=== PATIENT | female | born 1935 | race Caucasian/White ===

== ENCOUNTER 2021-12-18 08:52 | Inpatient (IN) | payer MEDICARE, BC, SELFPAY ==
[2021-12-18] VITALS (10 sets, daily range): BP systolic 174–230; BP diastolic 73–91; PULSE 67–87; RESP 15–24; TEMP 36.3–37.3; O2SAT 92–96; BMI 20.9; BMI 21.8
--- NOTE | 2021-12-18 09:05 | CT_ITS ---
WS: [id number] CT ANGIOGRAM CEREBRAL AND CAROTID ARTERIES HISTORY: acute CVA TECHNIQUE: CT angiogram is performed of the carotid and cerebral arteries. During arterial injection imaging is obtained from the skull vertex to the aortic arch in 1.25 mm imaging. Coronal and sagittal reformats are submitted. Additional multi planar reformats of the carotid and cerebral arteries are submitted, MIP imaging also reviewed. NASCET criteria utilized. All CT scans at [facility] us e at least one of these dose optimization techniques: automated exposure control; mA and/or kV adjust ment per patient size (includes targeted exams where dose is matched to clinical indication); or iter ative reconstruction. CONTRAST: Visipaque 320; 95 mL IV. DLP: 1670.86 mGy.cm COMPARISON: None available. Carotid Angiogram: Right carotid: Common carotid artery: Proximal RIGHT carotid artery is obscured by significant breathing artifact. T he mid and distal common carotid artery widely patent. Small amount of plaque at the bifurcation. Internal carotid artery: No stenosis. There is a sharp bend in the mid cervical carotid artery stenos is resulting in mild narrowing. External carotid artery: Patent. Left carotid: Common carotid artery: Arises normally from the aorta. No significant plaque or stenosis. Partially o bscured in the proximal common carotid artery due to motion and breathing artifact. Internal carotid artery: Partially External carotid artery: Patent. Right vertebral artery: Unremarkable. Left vertebral artery: Unremarkable. Arises normally from the subclavian artery. Subclavian arteries: No stenosis or significant abnormality. Upper thorax: Normal. Thyroid gland: Normal. Osseous structures: Thoracic spondylitic changes. No destructive lesions. CEREBRAL ANGIOGRAM: Intracranial vertebral arteries: Small caliber RIGHT vertebral artery but it is patent. Basilar artery: No significant stenosis or occlusion. No aneurysm. Intracranial Internal carotid arteries: No stenosis. There is a small amount of calcified plaque thro ugh the cavernous sinuses. Middle cerebral arteries: Normal. Anterior cerebral arteries and ACOM: Normal. Posterior cerebral arteries and PCOM's: Persistent RIGHT circulation. LEFT P-comm is poorly vis ualized and may be absent. Small filling defect is probably an arachnoid granulation in the posterior cysts sagittal sinus. Theo tional filling defects are very small caliber LEFT transverse sinus. This is probably normal variant as the jugular foramen on the LEFT is also very small. Mastoid air cells: Normal. Paranasal sinuses: Normal. Calvarium: Normal. CT/CT angio headneck* [id number] IMPRESSION: 1. No significant carotid artery stenosis. There is mild narrowing in the mid RIGHT internal carotid artery due to the sharp bend. Mild atherosclerosis throu gh the cavernous sinuses. 2. No aneurysms or significant occlusion.
--- NOTE | 2021-12-18 09:05 | CT_ITS ---
WS: [id number] CT HEAD NONCONTRAST HISTORY: Symptoms of Acute Stroke TECHNIQUE: Contiguous axial imaging performed through the brain in 2.5 mm imaging. Bone and soft tiss ue windows. Sagittal and coronal reformats reviewed. All CT scans at [facility] use at least one of these dose optimization techniques: automated exposure control; mA and/or kV adjustment per pa tient size (includes targeted exams where dose is matched to clinical indication); or iterative recon struction. DLP: 937.61 mGy-cm. COMPARISON: None available. No acute intracranial hemorrhage, midline shift or mass effect. Moderate to severe atrophy slightly greater involving the LEFT hemisphere. There is extensive low att enuation from chronic white matter disease. Slight increased low attenuation within the RIGHT parieta l region. There is still normal appearance of the overlying cortex. These changes all may be related to chronic white matter disease. Mild atrophy of the cerebellum. Ventricles: Ventricles and extra-axial spaces are prominent on the basis of atrophy. Paranasal sinuses: As visualized are clear. Mastoid air cells: Well pneumatized. Calvarium and scalp: Skull is intact with no soft tissue edema or swelling. Moderate atherosclerotic plaque within the intracranial carotid arteries. CT/CT head wo con* [id number] IMPRESSION: 1. No acute intracranial hemorrhage or edema. 2. Moderate to severe atrophy and chronic ischemic disease. Slightly greater a trophy involving the LEFT cerebrum. Slightly greater chronic ischemic changes i n the RIGHT parietal region. The overlying cortex is still normal.
--- NOTE | 2021-12-18 09:05 | ECG_ITS ---
[facility] Test Date: 2021-12-18 Pat Name: Isabel Smallwood Department: Room: Gender: Female Assisted Living Home Director: : 1935 Requested By: Thomas Miramontes Order Number: [id number] Giancarlo MD: Rudolph Graves M.D. Measurements Intervals [place] Rate: 80 P: 89 OR: 171 QRS: 16 QRSD: 133 T: 60 QT: 448 QTc: 517 Interpretive Statements SINUS RHYTHM INDETERMINATE AXIS RIGHT BUNDLE BRANCH BLOCK [120+ ms QRS DURATION, UPRIGHT V1, 40+ ms S IN I/aVL/V4/V5/V6] Compared to ECG 05/20/2018 10:14:22 Indeterminate axis now present Right bundle-branch block now present Sinus tachycardia no longer present T-wave abnormality no longer present Electronically Signed On 12-20-2021 15:49:54 CDT by Rudolph Graves M.D. [id number]
--- NOTE | 2021-12-18 09:11 | W.ED.NEUROSD ---
HPI - Neuro Symptoms/Deficit General: Chief Complaint: Neuro Symptoms/Deficit Stated Complaint: l side weakness/ laying on floor Time Seen by Provider: 12/18/21 08:54 Source: patient Mode of arrival: EMS Limitations: no limitations History of Present Illness: 86-year-old female brought in by EMS with wake-up symptoms of left face left-sided facial weakness left arm and leg weakness. Patient is mild aphasia and significant dysarthria. Initial stroke score of 14. Patient was found by family laying on the floor. She is 14 hours out from onset of symptoms. She denies chest pain or difficulty breathing she is not on any anticoagulants. Onset (ago): unknown (Wake-up symptoms) Time: 08:52 Last Observed Normal: 19:00 Timing confirmed by: family member Location: speech, left face, left arm and left leg History of same: No Severity: severe Quality: weak Relieving factors: none Exacerbating factors: none Context: sudden onset (Woke up with symptoms) On Anticoagulants: No Associated symptoms: Deny chest pain, cough, diaphoresis, fevers/chills, headache(s), anorexia, malaise, nausea, seizures, short of breath, syncope, tingling, vertigo, vomiting or weakness Treatments Prior to Arrival: none Review of Systems Const: Denies: malaise or diaphoresis Card: Denies: chest pain or syncope GI: Denies: nausea or vomiting Neuro: Denies: headache(s) or vertigo [facility] ED PFSH: Medical History (Updated 12/22/21 @ 16:07 by Thomas Dubose DO) Depression with anxiety HTN (hypertension) Insomnia Family History (Updated 12/18/21 @ 10:59 by Joseph Yanez MD) Daughter Psychiatric illness Social History (Updated 12/18/21 @ 11:01 by Joseph Yanez MD) Smoking and tobacco status: never smoked Alcohol intake: never Household members: spouse and children Marital status: Number of children: 2 NIH stroke score NIHSS: Level Of Consciousness - 1a: 1 Level Of Consciousness Questions - 1b: One Correct Level Of Consciousness Commands - 1c: Both Correct Best Gaze - 2: Normal Visual Wiley - 3: Partial Hemianopia Facial Palsy - 4: Complete Paralysis Motor Arm Right - 5: No Drift Motor Arm Left - 5: Drift Motor Leg Right - 6: No Drift Motor Leg Left - 6: Drift Limb Ataxia - 7: Present In Two Limbs Sensory - 8: Normal Best Language - 9: Mild/Moderate Aphasia Dysarthia - 10: Severe Dysarthia Extinction And Inattention - 11: 0 Score: Total Score: 13 Physical Exam Const: GENERAL APPEARANCE: cooperative, comfortable and lethargic ORIENTATION/CONSCIOUSNESS: Yes lethargic HENMT: COMMON NORMALS: normocephalic, atraumatic and hearing grossly normal bilaterally HEAD & SCALP: normocephalic and atraumatic Eye: COMMON NORMALS: Equal, round and reactive pupils present, EOMs intact bilaterally, conjunctivae normal and no scleral icterus CONJUNCTIVA: Yes conjunctivae normal PUPIL: Yes Equal, round and reactive pupils present Neck/C-Spine: COMMON NORMALS: full ROM, no lymphadenopathy, supple and no JVD Lymph: LYMPHATIC: no lymphadenopathy noted and no lymphedema noted Resp: COMMON NORMALS: normal respiratory effort, No retractions, No use of accessory muscles and clear to auscultation bilaterally AUSCULTATION: clear to auscultation bilaterally Cardio: COMMON NORMALS: no JVD, regular rate, regular rhythm and No murmurs present (Cardio) RATE: regular rate RHYTHM: regular rhythm GI: COMMON NORMALS: Soft to palpation and No hepatosplenomegaly present AUSCULTATION: Yes normoactive bowel sounds PALPATION: Yes Soft to palpation, No Tenderness to palpation present (GI), No Guarding due to palpation present (GI) and Yes No hepatosplenomegaly present Extremity: COMMON NORMALS: normal to inspection, capillary refill normal, no clubbing, cyanosis or edema, no calf tenderness and no pedal edema Neuro: SENSORIUM/ORIENTATION: Yes lethargic Skin: COMMON NORMALS: no rashes or lesions noted GENERAL SKIN EXAM: no rashes or lesions noted Course Vital Signs: Vital signs: Vital Signs Temperature 98.4 F 12/22/21 13:41 Pulse Rate 66 12/22/21 13:41 Respiratory Rate 16 12/22/21 13:41 Blood Pressure 193/75 12/22/21 13:41 Pulse Oximetry 95 12/22/21 13:41 MDM - Neuro Symptoms/Deficit Medical Decision Making Over 12 hours at the time of presentation. CTA head and neck does not show any embolism. Is not a candidate for TPA will admit discussed with hospitalist orders written Medical Records I reviewed the patient's medical records. Lab Data I reviewed the patient's lab results. : 12/18/21 08:37 12/18/21 08:[address] 12/18/21 09:05 IMPRESSION: 1. No acute intracranial hemorrhage or edema. 2. Moderate to severe atrophy and chronic ischemic disease. Slightly greater atrophy involving the LEFT cerebrum. Slightly greater chronic ischemic changes in the RIGHT parietal region. The overlying cortex is still normal. Head/Neck CTA 12/18/21 09:05 IMPRESSION: 1. No significant carotid artery stenosis. There is mild narrowing in the mid RIGHT internal carotid artery due to the sharp bend. Mild atherosclerosis through the cavernous sinuses. 2. No aneurysms or significant occlusion. Laboratory Results WBC 10.5 10^3/uL (4.0-10.0) H 12/18/21 08:37 RBC 4.71 10^6/uL (4.1-5.3) 12/18/21 08:37 Hgb 14.8 g/dL (11.5-15.3) 12/18/21 08:37 Hct 47.0 % (37.0-47.0) 12/18/21 08:37 MCV 99.8 fl (81-99) H 12/18/21 08:37 MCH 31.4 pg (28.0-34.0) 12/18/21 08:37 MCHC 31.5 g/dL (30.0-36.0) 12/18/21 08:37 RDW 11.9 % (12.1-15.1) L 12/18/21 08:37 Plt Count 212 10^3/cmm (130-400) 12/18/21 08:37 MPV 11.1 fL (7.4-10.4) H 12/18/21 08:37 Neut % (Auto) 79.4 % 12/18/21 08:37 Lymph % (Auto) 13.3 % 12/18/21 08:37 [place] % (Auto) 5.5 % 12/18/21 08:37 Eos % (Auto) 0.4 % 12/18/21 08:37 Baso % (Auto) 0.6 % 12/18/21 08:37 Neut # (Auto) 8.38 10^3/uL (1.8-7.7) H 12/18/21 08:37 Lymph # (Auto) 1.4 10^3/uL (0.8-4.8) 12/18/21 08:37 [place] # (Auto) 0.6 10^3/uL (0.2-0.9) 12/18/21 08:37 Eos # (Auto) 0.0 10^3/uL (0.0-0.8) 12/18/21 08:37 Baso # (Auto) 0.1 10^3/uL (0.0-0.1) 12/18/21 08:37 Nucleated RBC % (auto) 0 % 12/18/21 08:37 Nucleated RBCs # 0.0 /100WBC 12/18/21 08:37 PT 12.40 SECONDS (12.1-14.9) 12/18/21 08:37 INR 0.89 (0.8-1.2) 12/18/21 08:37 APTT 24.6 SECONDS (23.9-36.7) 12/18/21 08:37 Sodium 139 mmol/L (136-145) 12/18/21 08:37 Potassium 3.9 mmol/L (3.5-5.1) 12/18/21 08:37 Chloride 100 mmol/L (98-107) 12/18/21 08:37 Carbon Dioxide 28 mmol/L (22-29) 12/18/21 08:37 Anion Gap 14.9 (5-19) 12/18/21 08:37 BUN 12 mg/dL (8-23) 12/18/21 08:37 Creatinine 0.8 mg/dL (0.5-0.9) 12/18/21 08:37 GFR Calculation Not Reportable 12/18/21 08:37 Glucose 119 mg/dL (65-115) H 12/18/21 08:37 POC Glucose 105 mg/dL (70-110) 12/18/21 09:22 Calculated Osmolality 289 mOsm/kg (285-295) 12/18/21 08:37 Calcium 10.1 mg/dL (8.5-10.5) 12/18/21 08:37 Total Bilirubin 0.5 mg/dL (0.15-1.2) 12/18/21 08:37 AST 18 U/L (0-32) 12/18/21 08:37 ALT 13 U/L (0-33) 12/18/21 08:37 Alkaline Phosphatase 87 IU/L (35-105) 12/18/21 08:37 Total Protein 7.7 g/dL (6.6-8.7) 12/18/21 08:37 Albumin 4.9 g/dL (3.5-5.2) 12/18/21 08:37 Globulin 2.8 g/dL (1.3-4.6) 12/18/21 08:37 Urine Color Straw (Yellow) 12/18/21 10:28 Urine Appearance Clear (CLEAR) 12/18/21 10:28 Urine pH 8 (5-7) H 12/18/21 10:28 Ur Specific [place] 1.010 (1.005-1.030) 12/18/21 10:28 Urine Protein Neg (Negative) 12/18/21 10:28 Urine Glucose (UA) Norm (Normal) 12/18/21 10:28 Urine Ketones Negative (Negative) 12/18/21 10:28 Urine Blood 2+ (Negative) H 12/18/21 10:28 Urine Nitrate Negative (Negative) 12/18/21 10:28 Urine Bilirubin Neg (Negative) 12/18/21 10:28 Prot Sulfosalicylic Acd Negative (Negative) 12/18/21 10:28 Urine Urobilinogen Norm mg/dL (Negative) 12/18/21 10:28 Ur Leukocyte Esterase Negative (Negative) 12/18/21 10:28 Urine RBC 0-4 /hpf (0-2) H 12/18/21 10:28 Urine WBC None /hpf (0-5) 12/18/21 10:28 Ur Squamous Epith Cells 0-4 /hpf (0-5) H 12/18/21 10:28 Amorphous Sediment Not Reportable 12/18/21 10:28 Urine Bacteria Trace /hpf (NONE) 12/18/21 10:28 Urine Mucus Trace /hpf 12/18/21 10:28 Urine Opiates Screen Negative ng/mL (Negative) 12/18/21 10:28 Ur Barbiturates Screen Negative ng/mL (Negative) 12/18/21 10:28 Ur Phencyclidine Scrn Negative ng/mL (Negative) 12/18/21 10:28 Ur Amphetamines Screen Negative ng/mL (Negative) 12/18/21 10:28 U Benzodiazepines Scrn Negative ng/mL (Negative) 12/18/21 10:28 Urine Cocaine Screen Negative ng/mL (Negative) 12/18/21 10:28 U Marijuana (THC) Screen Negative ng/mL (Negative) 12/18/21 10:28 Discharge Plan Discharge Patient Disposition: Admitted As Inpatient Admit Provider: Joseph Yanez Clinical Impression: CVA (cerebral vascular accident), HTN (hypertension) Condition: Stable Discharge Orders: Discharge Order (Routine); Ordered 12/22/21 Ordered By: Renita De Luna Discharge Diet: Cardiac Discharge Activity: Increase activity as tolerated Coding Level of Care Code ED Exhaust Emissions Automotive Technician for Loy Ontiveros
[2021-12-18] MEDS: iodixanol 320 mg/mL 100mL Btl IV (09:12)
--- NOTE | 2021-12-18 09:18 | PC.PHAR ---
pts verified pts medications pts brought in the pts medication bottles-pts states the pt takes no other rx or otc medications
[2021-12-18 09:23] LABS: Basophils # 0.1 10^3/uL (0.0-0.1); Basophils % 0.6 %; Eosinophils % 0.4 %; Hemoglobin 14.8 g/dL (11.5-15.3); Lymphocytes # 1.4 10^3/uL (0.8-4.8); Lymphocytes % 13.3 %; Mean Corpuscular HGB Conc 31.5 g/dL (30.0-36.0); Mean Corpuscular Hemoglobin 31.4 pg (28.0-34.0); Mean Corpuscular Volume 99.8 fl (81-99); Mean Platelet Volume 11.1 fL (7.4-10.4); Monocytes # 0.6 10^3/uL (0.2-0.9); Monocytes % 5.5 %; Neutrophils # 8.38 10^3/uL (1.8-7.7); Neutrophils % 79.4 %; Nucleated Red Blood Cells % 0 %; Platelet Count 212 10^3/cmm (130-400); Red Blood Count 4.71 10^6/uL (4.1-5.3); Red Cell Distribution Width 11.9 % (12.1-15.1); White Blood Count 10.5 10^3/uL (4.0-10.0)
[2021-12-18 09:25] LABS: Glucose Point of Care 105 mg/dL (70-110)
[2021-12-18 09:28] LABS: INR 0.89 (0.8-1.2)
[2021-12-18 09:29] LABS: Partial Thromboplastin Time 24.6 SECONDS (23.9-36.7)
[2021-12-18 09:37] LABS: Alanine Aminotransferase 13 U/L (0-33); Albumin Level 4.9 g/dL (3.5-5.2); Alkaline Phosphatase 87 IU/L (35-105); Anion Gap 14.9 (5-19); Aspartate Amino Transferase 18 U/L (0-32); Blood Urea Nitrogen 12 mg/dL (8-23); Calcium 10.1 mg/dL (8.5-10.5); Carbon Dioxide 28 mmol/L (22-29); Chloride 100 mmol/L (98-107); Creatinine Clr Calc Pharmacy 47.1485; Globulin 2.8 g/dL (1.3-4.6); Glucose 119 mg/dL (65-115); Osmolality Calculated 289 mOsm/kg (285-295); Potassium 3.9 mmol/L (3.5-5.1); Sodium 139 mmol/L (136-145); Total Bilirubin 0.5 mg/dL (0.15-1.2); Total Protein 7.7 g/dL (6.6-8.7)
--- NOTE | 2021-12-18 10:50 | P.HP_ITS ---
Providers/Chief Complaint Admitting Physician: Joseph Yanez MD. Chief Complaint: l side weakness/ laying on floor History of Present Illness Isabel Smallwood is a 86 year old female that presents to ED today with approximately 12 hours history dense left side hemiparesis, and dysarthria. Patient's explains that she was last seen without symptoms last night before bed, and he found her this morning around 0800 with these symptoms. She explains that she began to feel bad last night at bed time, but denies any symptoms of weakness or dysarthria. She was unable to communicate what symptoms she was experiencing. Patient denies any history of thyroid disease, cardiac problems, and cardiac arrhythmias. Patient denies any history of similar stroke symptoms in the past. Review of Systems General: Reports: 10 or more systems reviewed and unremarkable except in HPI and below Const: Denies: fever(s) or chills Eyes: Denies: change in vision ENMT: Denies: throat pain or nasal congestion Card: Denies: chest pain or palpitations Resp: Denies: dyspnea or productive cough GI: Denies: abdominal pain, nausea or vomiting : Denies: difficulty voiding or dysuria Musc: Denies: extremity pain or muscle cramps Skin/Breast: Denies: rash Neuro: Reports: other (See HPI) Psych: Reports: anxiety and depression Endo: Denies: polyuria or excessive sweating Alvino/Lymph: Denies: easy bruising or easy bleeding All/Imm: Denies: urticaria Medications/Allergies Home Medications Medication Instructions Recorded Confirmed Last Taken Type aripiprazole 2 mg tablet 2 mg PO DAILY@08 12/18/21 12/18/21 12/17/21 History atenolol 50 mg tablet 50 mg PO BEDTIME 12/18/21 12/18/21 12/17/21 History citalopram 10 mg tablet 10 mg PO DAILY@12 12/18/21 12/18/21 12/17/21 History trazodone 100 mg tablet 200 mg PO BEDTIME 12/18/21 12/18/21 12/17/21 History Allergies Allergy/AdvReac Type Severity Reaction Status Date / Time No Known Allergies Allergy Verified 12/18/21 09:14 PFSH Acute PFSH: Medical History (Updated 12/18/21 @ 11:03 by Joseph Yanez MD) Depression with anxiety HTN (hypertension) Insomnia Family History (Updated 12/18/21 @ 10:59 by Joseph Yanez MD) Daughter Psychiatric illness Social History (Updated 12/18/21 @ 11:01 by Joseph Yanez MD) Smoking and tobacco status: never smoked Alcohol intake: never Household members: spouse and children Marital status: Number of children: 2 Vitals/I&O/Wt Last Vital Signs Pulse 87 12/18/21 10:03 Resp 18 12/18/21 10:03 BP 196/73 12/18/21 10:03 Pulse Ox 92 12/18/21 10:03 Weight last 48 hrs Weight 58.967 kg Physical Exam Narrative: General: Elderly appearing female lying in bed with at her side, left side facial droop present. HEENT: Normocephalic, atraumatic. Pupils equal and round. Neck is supple no lymphadenopathy or thyromegaly Cardiac: Regular rate and rhythm. S1 S2 present, no murmurs rubs or gallops. Peripheral pulse 2+. Respiratory: Clear to auscultation, no wheezes rales or rhonchi. Air entry equal bilaterally. GI: Soft, nontender, nondistended, normoactive bowel sounds, no organomegaly. Extremities: Left side upper and lower extremity weakness, muscle strength 1+ upper, 2+ lower. No cyanosis, clubbing, or edema. No other obvious abnormalities. Neuro: Dense left sided hemiparesis, left sided facial droop. Sensation absent over left upper and lower extremity. Able to move left lower extremity better. Suspect visual field defect as well. Data : 12/18/21 08:37 12/18/21 08:37 Other Labs: INR 0.89 EKG: Sinus rhythm, regular rate. Normal axis. Right bundl branch block. Nonspecific ST wave changes. CT Head: No acute ICH or edema. Moderate to severe atrophy and chronic ischemic disease. Slightly greater atrophy involving left cerebrum. Slight greater chronic ischemic changes in right parietal region. CTA Cerebral and Carotid Arteries: No significant carotid artery stenosis. Mild narrowing mid right internal carotid artery due to sharp bend. Mild atherosclerosis through cavernous sinuses. No aneurysms or significant occ lusions. LFTs normal, glucose 119, urinalysis negative, urine drug screen negative A&P Assessment and plan (1) CVA (cerebral vascular accident): Patient presents with evidence of right sided CVA manifested by dense left side hemiparesis, left sided facial droop, and dysarthria. Denies any history of coronary heart disease, arrhythmias, or previous TIA/stroke. Start patient on aspirin, Plavix for antiplatelet treatment Lovenox for DVT prophylaxis anticoagulation Telemetry TSH ordered on blood in lab Speech therapy, occupational, and physical therapy consultation. Remain NPO for now and advance diet following speech therapy swallow evaluation Start statin, Hold beta-reza currently secondary to permissive hypertension. Hopefully can restart at a lower dose tomorrow unless significant withdrawal occurs Check echocardiogram CMP, CBC in AM Status: Acute (2) HTN (hypertension): Hold at home hypertensive medications May have to restart lower dose of beta-reza earlier than ideal if any withdrawal occurs Treat blood pressure if greater than 220/120, message to nurse regarding this entered in the orders. Status: Acute (3) Depression: Continue citalopram and abilify as scheduled at home for treatment of depression and anxiety Status: Acute (4) Insomnia: Continue trazodone for difficulty with sleep Status: Acute Plan Allow natural . Lovenox for DVT prophylaxis Attestations Medical Necessity Statement*: Will require greater than 2 midnight stay for evaluation and treatment of CVA. Coding Level of Care Code Acute Lead Software Development Engineer for Loy Ontiveros Diagnoses CVA (cerebral vascular accident) I63.9 HTN (hypertension) I10 Depression F32.A Insomnia G47.00
[2021-12-18 10:58] LABS: Add Urine Microscopic? YES; Bilirubin Urine Neg (Negative); Blood Urine 2+ (Negative); Glucose Urine UA Norm (Normal); Ketones Urine Negative (Negative); Leukocyte Esterase Urine Negative (Negative); Nitrate Urine Negative (Negative); Protein Urine Neg (Negative); Sulfosalicylic Acid Urine Negative (Negative); Urine Appearance Clear (CLEAR); Urine Color Straw (Yellow); Urobilinogen Urine Norm (Negative); pH Urine 8 (5-7)
[2021-12-18 11:04] LABS: Amphetamines Screen Urine Negative (Negative); Barbiturates Screen Urine Negative (Negative); Benzodiazepines Screen Urine Negative (Negative); Cocaine Screen Urine Negative (Negative); Opiate Screen Urine Negative (Negative); PCP Screen Urine Negative (Negative); THC Screen Urine Negative (Negative)
[2021-12-18] MEDS: labetalol 5 mg/mL SDV 20mL 10 MG IVP (11:13)
[2021-12-18 11:17] LABS: Add Urine Culture? No; Bacteria Urine TRACE /hpf; Mucus Urine TRACE /hpf; RBC Urine 0-4 /hpf (0-2); Squamous Epithelial Cell Urine 0-4 /hpf (0-5)
[2021-12-18] MEDS: enoxaparin 40 mg/0.4 mL Syringe SUBCUT (11:17)
[2021-12-18] MEDS: citalopram 20 mg Tablet 10 MG PO (14:57)
[2021-12-18] MEDS: sodium chloride 0.9% 1,000 ML 50 ML IV (22:25)
[2021-12-19] VITALS (10 sets, daily range): BP systolic 150–186; BP diastolic 60–90; PULSE 61–71; RESP 16–22; TEMP 37.3–37.6; O2SAT 93–97
[2021-12-19 03:42] LABS: Estmated Average Glucose 103; Hemoglobin A1C 5.2 % (4.0-6.0)
[2021-12-19 03:45] LABS: Chol HDL Ratio 2.76 mg/dL (0.0-4.40); Cholesterol 229 mg/dL (0-200); HDL Cholesterol 83 mg/dL (60-100); LDL Cholesterol Calculated 129 mg/dL (50-129); LDL HDL Ratio 1.55 RATIO (0.00-3.22); Triglycerides 83 mg/dL (0-150)
--- NOTE | 2021-12-19 06:00 | USCV_ITS ---
Isabel Smallwood Age: 86 Gender: F : 1935 Exam Date: 12/19/2021 07:06 Ordering Phys: Joseph Yanez MD Technologist: Kelsie Trivedi [place] [facility] [place]: CVA BP: 168 / 75 HR: 80 Rhythm: Sinus Technical Quality: Adequate MEASUREMENTS (Male / Female) Normal Values 2D ECHO LV Diastolic Diameter PLAX 3.9 cm 4.2 - 5.9 / 3.9 - 5.3 cm LV Systolic Diameter PLAX 2.4 cm IVS Diastolic Thickness 1.1 cm 0.6 - 1.0 / 0.6 - 0.9 cm IVS Systolic Thickness 1.6 cm LVPW Diastolic Thickness 1.1 cm 0.6 - 1.0 / 0.6 - 0.9 cm LVPW Systolic Thickness 1.6 cm LVOT Diameter 2.0 cm LV Ejection Fraction 2D Teich 70.9 % LV Ejection Fraction MOD 2C 63.9 % LV Ejection Fraction 2C AL 63.8 % LA Diameter 2.4 cm LA Width 3.6 cm LA Height 5.3 cm RA Width 2.2 cm RA Height 4.3 cm Aorta at Sinotubular Diameter 2.1 cm M-MODE Aortic Annulus Diameter 2.4 cm LA Ao Ratio MM 1.2 MV E Point Septal Separation 1.0 cm DOPPLER AV Peak Velocity 126.0 cm/s LVOT Peak Velocity 111.0 cm/s AV Area Cont Eq vti 2.4 cm squared AV Area Cont Eq pk 2.8 cm squared MV Area PHT 3.7 cm squared Mitral E to A Ratio 1.5 MV E' Velocity 57.5 cm/s Mitral E to MV E' Ratio 16.3 Mitral E to LV E' Lateral Ratio 15.1 Mitral E to LV E' Septal Ratio 17.6 TR Peak Velocity 274.8 cm/s TR Peak Gradient 30.2 mmHg TR Mean Velocity 193.5 cm/s TR Mean Gradient 17.7 mmHg TR Velocity Time Integral 77.4 cm TV Peak E Velocity 43.0 cm/s Right Atrial Pressure 8.0 mmHg Pulmonary Artery Systolic Pressu 38.2 mmHg PV Peak Velocity 97.0 cm/s RV Acceleration Time 0.1 s RV Ejection Time 0.3 s RV AcT/ET 0.3 FINDINGS Left Ventricle Normal left ventricular size. LV systolic function is normal with EF of 55-60%. No regional wall motion abnormalities. Right Ventricle The right ventricle is normal in size and function. Right Atrium The right atrium is normal in size. Left Atrium The left atrium is normal in size. Mitral Valve Mild mitral annular calcification without significant stenosis or prolapse. There is mild mitral regurgitation. Aortic Valve Structurally normal aortic valve without significant sclerosis or stenosis. There is mild to moderate aortic regurgitation. Tricuspid Valve Structurally normal tricuspid valve without significant stenosis. Mild tricuspid regurgitation. Pulmonary artery systolic pressure is normal. Pulmonic Valve Structurally normal pulmonic valve without significant stenosis. There is no pulmonic regurgitation. Pericardium Normal pericardium without effusion. Aorta Normal ascending aorta dimension. CONCLUSIONS LV systolic function is normal with EF of 55-60% Mild mitral regurgitation Mild to moderate aortic regurgitation Mild tricuspid regurgitation No comparison studies are available Rudolph Graves MD (Electronically Signed) Final Date: 19 December 2021 11:20 S
--- NOTE | 2021-12-19 07:10 | PC.NURSE ---
[facility] completed at bedside with Chritsin THOMAS from pm shift.
[2021-12-19] MEDS: enoxaparin 40 mg/0.4 mL Syringe SUBCUT (09:49)
[2021-12-19] MEDS: clopidogrel 75 mg Tablet PO (09:49)
[2021-12-19] MEDS: atenolol 50 mg Tablet 25 MG PO ×2 (09:49→20:05)
[2021-12-19] MEDS: aspirin 81 mg EC Tablet PO (09:49)
--- NOTE | 2021-12-19 11:40 | P.PN_ITS ---
Subjective Subjective: Patient will patient work with PT Did not see any signs of aspiration with fluid intake She is eager to return home with home health services, she is not very motivated to go to rehab however might agree for short-term Vitals/I&O/Wt Last Vital Signs Temp 99.1 F 12/19/21 08:00 Pulse 71 12/19/21 08:00 Resp 22 H 12/19/21 08:00 BP 175/60 12/19/21 09:17 Pulse Ox 93 12/19/21 08:00 12/18/21 12/19/21 12/19/21 22:59 06:59 14:59 Intake Total 591.667 / 591.667 Output Total 150 / 150 650 / 800 Balance -150 / -150 -650 / -800 591.667 / 591.667 Weight last 48 hrs Weight 57.697 kg Weight 58.967 kg Physical Exam Narrative: Euvolemic NIH 0 Right-sided mild facial droop Awake and alert Weakness of upper extremities noted however she is able to hold spoon and eat on her own Able to lift her leg in the air for about 5 seconds Able to follow commands at the bedside Saturating well on room air No audible stridor or wheezing Abdomen soft Urinary Catheter Management: Silva: Cath Placed During This Visit: yes Reason for Continuing Indwelling Catheter: Other Urinary Catheter Date of Insertion: 12/18/21 Urinary Catheter Time of Insertion: 11:21 Data : 12/18/21 08:37 12/18/21 08:37 A&P Assessment and plan (1) Insomnia: Status: Acute (2) CVA (cerebral vascular accident): Status: Acute (3) Depression: Status: Acute (4) HTN (hypertension): Status: Acute Plan NIH 0 To work with PT OT speech therapy She might be able to go home with home health services versus short-term rehab Sinus rhythm Will need event monitor at the time of discharge For her hypertension I have added metoprolol, Hemoglobin A1c normal Advance diet after speech therapy evaluation DVT prophylaxis with Lovenox Currently on dual antiplatelet therapy Echo unremarkable Continue SSRI for depression Trazodone for insomnia DNR/DNI Attestations Medical Necessity Statement*: Continue hospitalization patient needs PT/OT/speech therapy evaluation Time Spent in Patient Care: 20min Coding Level of Care Code Acute Chemical Engineering Technologist for Chg Fwd Diagnoses Insomnia G47.00 CVA (cerebral vascular accident) I63.9 Depression F32.A HTN (hypertension) I10
[2021-12-19] MEDS: citalopram 20 mg Tablet 10 MG PO (12:30)
[2021-12-19] MEDS: lisinopril 10 mg Tablet PO (12:30)
[2021-12-19] MEDS: atorvastatin 40 mg Tablet PO (20:06)
[2021-12-19] MEDS: trazodone 100 mg Tablet 200 MG PO (20:06)
[2021-12-20] VITALS (10 sets, daily range): BP systolic 126–153; BP diastolic 68–73; PULSE 58–68; RESP 16–18; TEMP 36.8–37.3; O2SAT 95–97
[2021-12-20] MEDS: lisinopril 10 mg Tablet PO (08:38)
[2021-12-20] MEDS: aspirin 81 mg EC Tablet PO (08:38)
[2021-12-20] MEDS: clopidogrel 75 mg Tablet PO (08:38)
[2021-12-20] MEDS: citalopram 20 mg Tablet 10 MG PO (11:12)
[2021-12-20] MEDS: enoxaparin 40 mg/0.4 mL Syringe SUBCUT (11:12)
--- NOTE | 2021-12-20 11:30 | P.PN_ITS ---
Subjective Subjective: This morning patient was able to work with physical therapy She requires some assistance however significant improvement in her energy and participation with PT No overnight events Plan to discharge her tomorrow with home health services Vitals/I&O/Wt Last Vital Signs Temp 98.3 F 12/20/21 11:27 Pulse 68 12/20/21 11:27 Resp 18 12/20/21 11:27 BP 126/68 12/20/21 11:27 Pulse Ox 97 12/20/21 11:27 12/19/21 12/20/21 12/20/21 21:59 06:59 14:59 Intake Total 120 / 120 Output Total Balance 120 / 120 Weight last 48 hrs Weight 57.697 kg Physical Exam Narrative: Patient was able to work with physical therapy Using walker Bilateral breath sounds Saturating well on room air Mild facial droop Left arm weakness She is able to walk with some assistance with the help of a walker No significant gait instability Awake and alert Able to follow commands NIH 0 Abdomen soft S1, S2 Urinary Catheter Management: Silva: Cath Placed During This Visit: yes Reason for Continuing Indwelling Catheter: Acute Urinary Retention or Obstruction Urinary Catheter Date of Insertion: 12/18/21 Urinary Catheter Time of Insertion: 11:21 Data : 12/18/21 08:37 12/18/21 08:37 A&P Assessment and plan (1) Insomnia: Status: Acute (2) CVA (cerebral vascular accident): Status: Acute (3) Depression: Status: Acute (4) HTN (hypertension): Status: Acute Plan Hemorrhagic CVA Atherosclerotic No signs of clot Sinus rhythm Dual antiplatelet therapy and atorvastatin Home health services, will prescribe her a walker Outpatient skilled therapy? Patient is actively participating with PT I will speak with her daughter today Plan to discharge her tomorrow with home health services Blood pressure is stable Afebrile Satting well on room air MCV is 99, check B12 level no signs of anemia DNR/DNI Dysphagia level 2 diet Attestations Medical Necessity Statement*: Discharge tomorrow Time Spent in Patient Care: 15min Coding Level of Care Code Acute In Tube Conversion Technician for Loy Ontiveros Diagnoses Insomnia G47.00 CVA (cerebral vascular accident) I63.9 Depression F32.A HTN (hypertension) I10
[2021-12-20 12:44] LABS: Vitamin B12 320 pg/mL (232-1245)
[2021-12-20] MEDS: atenolol 50 mg Tablet 25 MG PO (20:53)
[2021-12-20] MEDS: atorvastatin 40 mg Tablet PO (20:53)
[2021-12-20] MEDS: trazodone 100 mg Tablet 200 MG PO (20:53)
[2021-12-21] VITALS (8 sets, daily range): BP systolic 148–178; BP diastolic 71–94; PULSE 57–83; RESP 15–20; TEMP 36.6–37.1; O2SAT 90–96
[2021-12-21] MEDS: aspirin 81 mg EC Tablet PO (08:11)
[2021-12-21] MEDS: clopidogrel 75 mg Tablet PO (08:11)
[2021-12-21] MEDS: lisinopril 10 mg Tablet PO (08:11)
--- NOTE | 2021-12-21 10:24 | PC.SOCIAL ---
IMM Update PG. 2 of IMM updated and reviewed with patient and who verbalized understanding. Copy provided.
[2021-12-21] MEDS: enoxaparin 40 mg/0.4 mL Syringe SUBCUT (11:56)
[2021-12-21] MEDS: citalopram 20 mg Tablet 10 MG PO (11:56)
--- NOTE | 2021-12-21 13:13 | PM.PN ---
Subjective Subjective: Patient is stating that she would like to go to SNF now because at home she will not be able to get much help from her family member, patient case coordinator is diligently working on finding an SNF Vitals/I&O/Wt Last Vital Signs Temp 98.3 F 12/21/21 11:19 Pulse 83 12/21/21 11:19 Resp 18 12/21/21 11:19 BP 148/76 12/21/21 11:19 Pulse Ox 96 12/21/21 11:19 12/20/21 12/21/21 12/21/21 22:59 06:59 14:59 Intake Total 600 / 1200 360 / 360 Output Total 150 / 150 200 / 350 Balance 450 / 1050 -200 / 850 360 / 360 Physical Exam Narrative: Patient is fatigued and lethargic Nonfocal neuro exam Awake and alert S1, S2 Clinical signs of euvolemic Abdomen soft Nonlabored breathing Saturating well on room air Urinary Catheter Management: Silva: Cath Placed During This Visit: yes Reason for Continuing Indwelling Catheter: Other Urinary Catheter Date of Insertion: 12/18/21 Urinary Catheter Time of Insertion: 11:21 Data : 12/18/21 08:37 12/18/21 08:37 A&P Assessment and plan (1) Insomnia: Status: Acute (2) CVA (cerebral vascular accident): Status: Acute (3) Depression: Status: Acute (4) HTN (hypertension): Status: Acute Plan There was initial plan to send her home with home health services however today she change her mind, patient case coordinator is diligently working to find her in SNF for rehab Continue aspirin, Plavix, blood pressure stable DNR/DNI Attestations Medical Necessity Statement*: 20min Coding Level of Care Code Acute Monitoring Specialist for g Fwd Diagnoses Insomnia G47.00 CVA (cerebral vascular accident) I63.9 Depression F32.A HTN (hypertension) I10
[2021-12-21 15:43] LABS: SARS Covid-2 Antigen Negative (Negative)
[2021-12-21] MEDS: trazodone 100 mg Tablet 200 MG PO (21:00)
[2021-12-21] MEDS: atenolol 50 mg Tablet 25 MG PO (21:00)
[2021-12-21] MEDS: atorvastatin 40 mg Tablet PO (21:00)
[2021-12-22 04:00] VITALS: BP 176/80; PULSE 62; RESP 16; TEMP 36.6; O2SAT 95
[2021-12-22 06:00] VITALS: PULSE 68
[2021-12-22 07:21] VITALS: BP 187/77; PULSE 59; RESP 16; TEMP 36.6; O2SAT 92
[2021-12-22] MEDS: aspirin 81 mg EC Tablet PO (09:10)
[2021-12-22] MEDS: lisinopril 10 mg Tablet PO (09:10)
[2021-12-22] MEDS: clopidogrel 75 mg Tablet PO (09:10)
[2021-12-22] MEDS: enoxaparin 40 mg/0.4 mL Syringe SUBCUT (09:15)
[2021-12-22 09:43] VITALS: PULSE 76; O2SAT 94
--- NOTE | 2021-12-22 10:06 | PM.DCS ---
Discharge Providers Date of Admission: 12/18/21 10:35 Date of Discharge: December 22, 2021 Attending Provider at Admission: Joseph Yanez MD Attending Provider at Discharge: Renita De Luna MD Diagnoses at Discharge Discharge Diagnosis (1) Insomnia: Status: Acute (2) CVA (cerebral vascular accident): Status: Acute (3) Depression: Status: Acute (4) HTN (hypertension): Status: Acute Reason for Visit Reason for Visit: l side weakness/ laying on floor Hospital Course Hospital Course This is admission note done by Dr. Yanez Isabel Smallwood is a 86 year old female that presents to ED today with approximately 12 hours history dense left side hemiparesis, and dysarthria. Patient's explains that she was last seen without symptoms last night before bed, and he found her this morning around 0800 with these symptoms. She explains that she began to feel bad last night at bed time, but denies any symptoms of weakness or dysarthria. She was unable to communicate what symptoms she was experiencing. Patient denies any history of thyroid disease, cardiac problems, and cardiac arrhythmias. Patient denies any history of similar stroke symptoms in the past.? Hospital course Patient was admitted for management and evaluation of right-sided CVA when she presented with left dense hemiplegia and facial droop. She was not a TPA candidate. Head and neck CT unremarkable. Rhythm remained normal sinus. She was prescribed dual antiplatelet therapy and high-dose atorvastatin. She did very well with physical therapy and recommended home health services. However on the day of discharge she changed her mind and wanted to go to rehab, this delayed her discharge from the hospital however this decision changed again and on 12/22 when her daughter was at the bedside she decided to go home with home health services. For her hypertension lisinopril 20 mg daily was added, continued atenolol. Echo showed EF 55 to 60% with mild mitral regurgitation. 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 Otherwise she is able to maneuver around using a walker S1, S2 sinus rhythm Able to eat on her own Abdomen soft No signs of edema of legs Saturating well on room air Urinary Catheter Management: Silva: Cath Placed During This Visit: yes, but has since been removed by the nurse Reason for Continuing Indwelling Catheter: Acute Urinary Retention or Obstruction Urinary Catheter Date of Insertion: 12/18/21 Urinary Catheter Time of Insertion: 11:21 Date Urinary Catheter Removed: 12/21/21 Time Urinary Catheter Discontinued: 15:17 Discharge Data Studies Completed and Pending Completed Studies During Hospitalization Category Date Time Status CT head wo con* [id number] Stat Cat Scan 12/18/21 09:05 Completed CTA head neck [CT angio headneck* [id number]] Stat Cat Scan 12/18/21 09:05 Completed CV. echo complete* [id number] Routine Ultrasound 12/19/21 06:00 Completed Radiology Impressions Head CT 12/18/21 09:05 IMPRESSION: 1. No acute intracranial hemorrhage or edema. 2. Moderate to severe atrophy and chronic ischemic disease. Slightly greater atrophy involving the LEFT cerebrum. Slightly greater chronic ischemic changes in the RIGHT parietal region. The overlying cortex is still normal. Head/Neck CTA 12/18/21 09:05 IMPRESSION: 1. No significant carotid artery stenosis. There is mild narrowing in the mid RIGHT internal carotid artery due to the sharp bend. Mild atherosclerosis through the cavernous sinuses. 2. No aneurysms or significant occlusion. Laboratory Results WBC 10.5 10^3/uL (4.0-10.0) H 12/18/21 08:37 RBC 4.71 10^6/uL (4.1-5.3) 12/18/21 08:37 Hgb 14.8 g/dL (11.5-15.3) 12/18/21 08:37 Hct 47.0 % (37.0-47.0) 12/18/21 08:37 MCV 99.8 fl (81-99) H 12/18/21 08:37 MCH 31.4 pg (28.0-34.0) 12/18/21 08:37 MCHC 31.5 g/dL (30.0-36.0) 12/18/21 08:37 RDW 11.9 % (12.1-15.1) L 12/18/21 08:37 Plt Count 212 10^3/cmm (130-400) 12/18/21 08:37 MPV 11.1 fL (7.4-10.4) H 12/18/21 08:37 Neut % (Auto) 79.4 % 12/18/21 08:37 Lymph % (Auto) 13.3 % 12/18/21 08:37 [place] % (Auto) 5.5 % 12/18/21 08:37 Eos % (Auto) 0.4 % 12/18/21 08:37 Baso % (Auto) 0.6 % 12/18/21 08:37 Neut # (Auto) 8.38 10^3/uL (1.8-7.7) H 12/18/21 08:37 Lymph # (Auto) 1.4 10^3/uL (0.8-4.8) 12/18/21 08:37 [place] # (Auto) 0.6 10^3/uL (0.2-0.9) 12/18/21 08:37 Eos # (Auto) 0.0 10^3/uL (0.0-0.8) 12/18/21 08:37 Baso # (Auto) 0.1 10^3/uL (0.0-0.1) 12/18/21 08:37 Nucleated RBC % (auto) 0 % 12/18/21 08:37 Nucleated RBCs # 0.0 /100WBC 12/18/21 08:37 PT 12.40 SECONDS (12.1-14.9) 12/18/21 08:37 INR 0.89 (0.8-1.2) 12/18/21 08:37 APTT 24.6 SECONDS (23.9-36.7) 12/18/21 08:37 Sodium 139 mmol/L (136-145) 12/18/21 08:37 Potassium 3.9 mmol/L (3.5-5.1) 12/18/21 08:37 Chloride 100 mmol/L (98-107) 12/18/21 08:37 Carbon Dioxide 28 mmol/L (22-29) 12/18/21 08:37 Anion Gap 14.9 (5-19) 12/18/21 08:37 BUN 12 mg/dL (8-23) 12/18/21 08:37 Creatinine 0.8 mg/dL (0.5-0.9) 12/18/21 08:37 GFR Calculation Not Reportable 12/18/21 08:37 Glucose 119 mg/dL (65-115) H 12/18/21 08:37 POC Glucose 105 mg/dL (70-110) 12/18/21 09:22 Estimat Average Glucose 103 12/19/21 02:22 Hemoglobin A1c 5.2 % (4.0-6.0) 12/19/21 02:22 Calculated Osmolality 289 mOsm/kg (285-295) 12/18/21 08:37 Calcium 10.1 mg/dL (8.5-10.5) 12/18/21 08:37 Total Bilirubin 0.5 mg/dL (0.15-1.2) 12/18/21 08:37 AST 18 U/L (0-32) 12/18/21 08:37 ALT 13 U/L (0-33) 12/18/21 08:37 Alkaline Phosphatase 87 IU/L (35-105) 12/18/21 08:37 Total Protein 7.7 g/dL (6.6-8.7) 12/18/21 08:37 Albumin 4.9 g/dL (3.5-5.2) 12/18/21 08:37 Globulin 2.8 g/dL (1.3-4.6) 12/18/21 08:37 Triglycerides 83 mg/dL (0-150) 12/19/21 02:22 Cholesterol 229 mg/dL (0-200) H 12/19/21 02:22 LDL Cholesterol, Calc 129 mg/dL (50-129) 12/19/21 02:22 HDL Cholesterol 83 mg/dL (60-100) 12/19/21 02:22 LDL/HDL Ratio 1.55 RATIO (0.00-3.22) 12/19/21 02:22 Cholesterol/HDL Ratio 2.76 mg/dL (0.0-4.40) 12/19/21 02:22 Vitamin B12 320 pg/mL (232-1245) 12/20/21 03:22 Urine Color Straw (Yellow) 12/18/21 10:28 Urine Appearance Clear (CLEAR) 12/18/21 10:28 Urine pH 8 (5-7) H 12/18/21 10:28 Ur Specific [place] 1.010 (1.005-1.030) 12/18/21 10:28 Urine Protein Neg (Negative) 12/18/21 10:28 Urine Glucose (UA) Norm (Normal) 12/18/21 10:28 Urine Ketones Negative (Negative) 12/18/21 10:28 Urine Blood 2+ (Negative) H 12/18/21 10:28 Urine Nitrate Negative (Negative) 12/18/21 10:28 Urine Bilirubin Neg (Negative) 12/18/21 10:28 Prot Sulfosalicylic Acd Negative (Negative) 12/18/21 10:28 Urine Urobilinogen Norm mg/dL (Negative) 12/18/21 10:28 Ur Leukocyte Esterase Negative (Negative) 12/18/21 10:28 Urine RBC 0-4 /hpf (0-2) H 12/18/21 10:28 Urine WBC None /hpf (0-5) 12/18/21 10:28 Ur Squamous Epith Cells 0-4 /hpf (0-5) H 12/18/21 10:28 Amorphous Sediment Not Reportable 12/18/21 10:28 Urine Bacteria Trace /hpf (NONE) 12/18/21 10:28 Urine Mucus Trace /hpf 12/18/21 10:28 Urine Opiates Screen Negative ng/mL (Negative) 12/18/21 10:28 Ur Barbiturates Screen Negative ng/mL (Negative) 12/18/21 10:28 Ur Phencyclidine Scrn Negative ng/mL (Negative) 12/18/21 10:28 Ur Amphetamines Screen Negative ng/mL (Negative) 12/18/21 10:28 U Benzodiazepines Scrn Negative ng/mL (Negative) 12/18/21 10:28 Urine Cocaine Screen Negative ng/mL (Negative) 12/18/21 10:28 U Marijuana (THC) Screen Negative ng/mL (Negative) 12/18/21 10:28 SARS-CoV-2 Ag (Rapid) Negative (Negative) 12/21/21 15:15 Vitals Last Vital Signs Temp 97.8 F 12/22/21 07:21 Pulse 76 12/22/21 09:43 Resp 16 12/22/21 07:21 BP 187/77 12/22/21 07:21 Pulse Ox 94 12/22/21 09:43 Discharge Plan Discharge Patient Disposition: Xfer SNF Condition: Stable Prescriptions: New atorvastatin 40 mg Tablet 40 mg PO BEDTIME Qty: 60 3RF clopidogrel 75 mg Tablet 75 mg PO DAILY Qty: 20 0RF aspirin 81 mg Tablet,Delayed Release (Dr/Ec) 81 mg PO DAILY Qty: 30 4RF lisinopril 10 mg Tablet 20 mg PO DAILY Qty: 60 4RF Continued citalopram 10 mg tablet 10 mg PO DAILY@12 0RF trazodone 100 mg tablet 200 mg PO BEDTIME 0RF atenolol 50 mg tablet 50 mg PO BEDTIME 0RF aripiprazole 2 mg tablet 2 mg PO DAILY@08 0RF Discharge Orders: Discharge Order (Routine); Ordered 12/22/21 Ordered By: Renita De Luna Other Ambulatory Orders: DME: Walker (Order) Location: None Selected Ordered By: Renita De Luna Referrals: [facility] [place] Home Care ([facility]) [Outside] Genaro Butler [Referring] - (DR BUTLER WILL CALL WITH APPOINTMENT) Discharge Diet: Cardiac Discharge Activity: Increase activity as tolerated Patient Instructions: Lisinopril (By mouth), Aspirin (By mouth), Atorvastatin (By mouth), Clopidogrel (By mouth) Discharge Attestations Time Spent in Discharge Care*: less than 30 min Quality Metrics Clinical Quality Measures [ No reported AMI, CVA or VTE this stay] Coding Level of Care Code Acute Chg FW DC note Diagnoses Insomnia G47.00 CVA (cerebral vascular accident) I63.9 Depression F32.A HTN (hypertension) I10
[2021-12-22 11:07] VITALS: BP 193/75; PULSE 66; RESP 16; TEMP 36.9; O2SAT 95
[2021-12-22] MEDS: citalopram 20 mg Tablet 10 MG PO (12:01)
[2021-12-22 13:41] VITALS: BP 193/75; PULSE 66; RESP 16; TEMP 36.9; O2SAT 95
== END 2021-12-22 13:43 | disposition home health service (06) | DRG 65 ==
LOC: ER 09:17 → MEDSURG 13:17
PROVIDERS: Admitting Provider Internal Medicine; Emergency Provider Family Medicine; Visit Provider Internal Medicine
DX: I62.9 Nontraumatic intracranial hemorrhage, unspecified (principal); G81.94 Hemiplegia, unspecified affecting left nondominant side; R29.810 Facial weakness; R47.01 Aphasia; R29.714 NIHSS score 14; F32.A Depression, unspecified; I10 Essential (primary) hypertension; G47.00 Insomnia, unspecified; Z66 Do not resuscitate
CPT/HCPCS: 36415; 36416; 51702; 70450; 70496; 70498; 80053; 80061; 80306; 81001; 82607; 82962; 83036; 85025; 85610; 85730; 87426; 92507; 92523; 92526; 92610; 93005; 93306; 96372; 96374; 97110; 97116; 97161; 97165; 97530; 97535; 99285; J1650; J3490; J7030; Q9967

== ENCOUNTER 2022-03-04 21:09 | Inpatient (IN) | payer MEDICARE, BC, SELFPAY ==
[2022-03-04] VITALS (7 sets, daily range): BP systolic 144–207; BP diastolic 76–82; PULSE 58–69; RESP 16–20; TEMP 36.5–36.8; O2SAT 95–96; BMI 24.0
--- NOTE | 2022-03-04 21:24 | XRR_ITS ---
PROCEDURE INFORMATION: Exam: XR Left Hip Exam date and time: 03/04/2022 9:34 PM Age: 87 years old Clinical indication: Hip pain; Left hip; Additional info: Fall TECHNIQUE: Imaging protocol: XR Left hip. Views: 2 or 3 views hip with pelvis when performed. COMPARISON: No relevant prior studies available. FINDINGS: Bones/joints: Mid femoral neck impacted fracture with approximately 1/2 shaft displacement. Soft tissues: Unremarkable. XR/XR hip LT 2-3V wo/w pel* [id number] IMPRESSION: Mid femoral neck impacted fracture with approximately 1/2 shaft displacement.
--- NOTE | 2022-03-04 21:24 | XRR_ITS ---
PROCEDURE INFORMATION: Exam: XR Chest Exam date and time: 03/04/2022 9:34 PM Age: 87 years old Clinical indication: Other: Pre op; Additional info: Fall TECHNIQUE: Imaging protocol: XR of the chest. Views: 1 view. COMPARISON: CR Chest 2 views* [id number] 05/20/2018 12:22 PM FINDINGS: Lungs: Unremarkable. No consolidation. Pleural spaces: Unremarkable. No pleural effusion. No pneumothorax. Heart/Mediastinum: Cardiomegaly. Bones/joints: Unremarkable. XR/XR chest 1V portable [id number] IMPRESSION: Cardiomegaly, negative for infiltrate.
[2022-03-04] MEDS: ondansetron 2 mg/ML SDV 2 mL 4 MG IVP (21:37)
[2022-03-04] MEDS: morphine 4 mg/mL SDV 1 mL IVP (21:38)
[2022-03-04 21:40] LABS: Basophils # 0.1 10^3/uL (0.0-0.1); Basophils % 0.6 %; Eosinophils # 0.2 10^3/uL (0.0-0.8); Eosinophils % 2.2 %; Hematocrit 40.3 % (37.0-47.0); Hemoglobin 12.6 g/dL (11.5-15.3); Lymphocytes % 12.1 %; Mean Corpuscular HGB Conc 31.3 g/dL (30.0-36.0); Mean Corpuscular Hemoglobin 31.4 pg (28.0-34.0); Mean Corpuscular Volume 100.5 fl (81-99); Mean Platelet Volume 10.5 fL (7.4-10.4); Monocytes # 0.6 10^3/uL (0.2-0.9); Monocytes % 7.5 %; Neutrophils # 6.63 10^3/uL (1.8-7.7); Neutrophils % 77.3 %; Nucleated Red Blood Cells % 0 %; Platelet Count 207 10^3/cmm (130-400); Red Blood Count 4.01 10^6/uL (4.1-5.3); Red Cell Distribution Width 12.2 % (12.1-15.1); White Blood Count 8.6 10^3/uL (4.0-10.0)
--- NOTE | 2022-03-04 21:45 | ED_ITS ---
HPI - Fall General: Chief Complaint: Fall Stated Complaint: Fall, Left hip pain Time Seen by Provider: 03/04/22 21:17 Source: patient Mode of arrival: ambulatory Limitations: no limitations History of Present Illness: 87-year-old female who states that she had fell just prior to arrival. States she landed on her left hip and has left hip pain from her fall. States that pain is sharp in nature rates it a 5 out of 10. She denies any other injury states she is not able to ambulate pain is much worse with any movement. Her pain is improved with rest Associated symptoms-after fall: Denies abdominal pain, chest pain, headache(s) or neck pain Review of Systems Const: Denies: fever(s), chills, body aches or change in appetite Eyes: Denies: blurry vision or eye discomfort ENMT: Denies: throat pain or dental pain Card: Denies: chest pain Resp: Denies: dyspnea GI: Denies: abdominal pain, nausea, vomiting or diarrhea : Denies: dysuria Musc: Reports: extremity pain; Denies: neck pain or back pain Skin/Breast: Denies: rash Neuro: Denies: headache(s) Psych: Denies: depression Alvino/Lymph: Denies: easy bruising All/Imm: Denies: urticaria PFSH ED PFSH: Medical History Depression Depression with anxiety HTN (hypertension) Insomnia Family History (Updated 12/18/21 @ 10:59 by Joseph Yanez MD) Daughter Psychiatric illness Social History Smoking and tobacco status: never smoked Alcohol intake: never Household members: spouse and children Marital status: Number of children: 2 Physical Exam Const: COMMON NORMALS: no acute distress, patient oriented x3 and healthy appearing HENMT: COMMON NORMALS: normocephalic and atraumatic HEAD & SCALP: n ormocephalic and atraumatic Eye: COMMON NORMALS: Equal, round and reactive pupils present and EOMs intact bilaterally PUPIL: Yes Equal, round and reactive pupils present Neck/C-Spine: COMMON NORMALS: full ROM and supple Chest: COMMONS NORMALS: normal inspection of the chest and normal palpation of entire chest wall Resp: COMMON NORMALS: normal respiratory effort, No retractions, No use of accessory muscles and clear to auscultation bilaterally AUSCULTATION: clear to auscultation bilaterally Cardio: COMMON NORMALS: regular rate, regular rhythm and No murmurs present (Cardio) RATE: regular rate RHYTHM: regular rhythm GI: COMMON NORMALS: Normal to inspection, nondistended, normoactive bowel sounds present, Soft to palpation, non-tender and no masses PALPATION: Yes Soft to palpation Extremity: COMMON NORMALS: full ROM NARRATIVE EXTREMITY EXAM: Tenderness to left hip internal rotation distal pulses sensation intact. Neuro: COMMON NORMALS: patient oriented x3, moves all extremities and no focal motor deficits Psych: COMMON NORMALS: mental status grossly normal, Normal thought process present and cooperative THOUGHT PROCESS: Normal thought process present Skin: COMMON NORMALS: no rashes or lesions noted and no wounds GENERAL SKIN EXAM: no rashes or lesions noted Course Vital Signs: Vital signs: Vital Signs Temperature 97.7 F 03/04/22 21:12 Pulse Rate 61 03/04/22 22:33 Respiratory Rate 20 H 03/04/22 22:33 Blood Pressure 197/76 03/04/22 22:33 Pulse Oximetry 96 03/04/22 22:33 MDM - Fall Medical Decision Making Patient presents here with a left hip fracture from a fall no other injuries noted spoke to hospitalist along with orthopedics and will admit. Lab Data : 03/04/22 21:33 03/04/22 21:33 Radiology Impressions Chest X-Ray 03/04/22 21:24 IMPRESSION: Cardiomegaly, negative for infiltrate. Hip/Pelvis X-Ray 03/04/22 21:24 IMPRESSION: Mid femoral neck impacted fracture with approximately 1/2 shaft displacement. Laboratory Results WBC 8.6 10^3/uL (4.0-10.0) 03/04/22 21:33 RBC 4.01 10^6/uL (4.1-5.3) L 03/04/22 21:33 Hgb 12.6 g/dL (11.5-15.3) 03/04/22 21:33 Hct 40.3 % (37.0-47.0) 03/04/22 21:33 MCV 100.5 fl (81-99) H 03/04/22 21:33 MCH 31.4 pg (28.0-34.0) 03/04/22 21: MCHC 31.3 g/dL (30.0-36.0) 03/04/22: RDW 12.2 % (12.1-15.1) 03/04/22 21: Plt Count 207 10^3/cmm (130-400) 03/04/22 21: MPV 10.5 fL (7.4-10.4) H 03/04/22 21: Neut % (Auto) 77.3 % 03/04/22 21: Lymph % (Auto) 12.1 % 03/04/22 21: [place] % (Auto) 7.5 % 03/04/22: Eos % (Auto) 2.2 % 03/04/22: Baso % (Auto) 0.6 % 03/04/22 21: Neut # (Auto) 6.63 10^3/uL (1.8-7.7) 03/04/22 21: Lymph # (Auto) 1.0 10^3/uL (0.8-4.8) 03/04/22 21: [place] # (Auto) 0.6 10^3/uL (0.2-0.9) 03/04/22 21: Eos # (Auto) 0.2 10^3/uL (0.0-0.8) 03/04/22 21: Baso # (Auto) 0.1 10^3/uL (0.0-0.1) 03/04/22: Nucleated RBC % (auto) 0 % 03/04/22 21: Nucleated RBCs # 0.0 /100WBC 03/04/22 21: PT 12.60 SECONDS (12.1-14.9) 03/04/22 21: INR 0.91 (0.8-1.2) 03/04/22 21: Sodium 141 mmol/L (136-145) 03/04/22 21: Potassium 3.7 mmol/L (3.5-5.1) 03/04/22 21: Chloride 104 mmol/L (98-107) 03/04/22 21: Carbon Dioxide 28 mmol/L (22-29) 03/04/22 21:33 Anion Gap 12.7 (5-19) 03/04/22 21:33 BUN 10 mg/dL (8-23) 03/04/22 21:33 Creatinine 0.7 mg/dL (0.5-0.9) 03/04/22 21:33 GFR Calculation Not Reportable 03/04/22 21:33 Glucose 182 mg/dL (65-115) H 03/04/22 21:33 Calculated Osmolality 296 mOsm/kg (285-295) H 03/04/22 21:33 Calcium 9.1 mg/dL (8.5-10.5) 03/04/22 21:33 Total Bilirubin 0.3 mg/dL (0.15-1.2) 03/04/22 21:33 AST 16 U/L (0-32) 03/04/22 21:33 ALT 11 U/L (0-33) 03/04/22 21:33 Alkaline Phosphatase 97 IU/L (35-105) 03/04/22 21:33 Total Protein 6.6 g/dL (6.6-8.7) 03/04/22 21:33 Albumin 4.0 g/dL (3.5-5.2) 03/04/22 21:33 Globulin 2.6 g/dL (1.3-4.6) 03/04/22 21:33 Discharge Plan Discharge Patient Disposition: Admitted As Inpatient Clinical Impression: Closed fracture of left hip Qualifiers: Encounter type: initial encounter Qualified Code(s): S72.002A - Fracture of unspecified part of neck of left femur, initial encounter for closed fracture Condition: Stable Discharge Diet: Advance as tolerated Discharge Activity: Resume usual activity Coding Level of Care Code ED Health Care Administrator for Loy Fwd Exam Comprehensive
--- NOTE | 2022-03-04 21:45 | ECG_ITS ---
[facility] Test Date: 2022-03-04 Pat Name: Isabel Smallwood Department: Room: Gender: Female Financial Services Associate: : 1935 Requested By: Jostin Watters Order Number: [id number] Giancarlo MD: Rudolph Graves M.D. Measurements Intervals [place] Rate: 59 P: 75 [place]: 156 QRS: -26 QRSD: 129 T: 17 QT: 482 QTc: 481 Interpretive Statements SINUS BRADYCARDIA BORDERLINE LEFT AXIS DEVIATION [QRS AXIS < -20] RIGHT BUNDLE BRANCH BLOCK [120+ ms QRS DURATION, UPRIGHT V1, 40+ ms S IN I/aVL/V4/V5/V6] Compared to ECG 12/18/2021 09:19:03 Sinus rhythm no longer present Indeterminate axis no longer present Electronically Signed On 03-04-2022 22:23:45 CDT by Rudolph Graves M.D. [id number]
[2022-03-04 21:52] LABS: INR 0.91 (0.8-1.2)
[2022-03-04 21:57] LABS: Alanine Aminotransferase 11 U/L (0-33); Alkaline Phosphatase 97 IU/L (35-105); Anion Gap 12.7 (5-19); Aspartate Amino Transferase 16 U/L (0-32); Blood Urea Nitrogen 10 mg/dL (8-23); Calcium 9.1 mg/dL (8.5-10.5); Carbon Dioxide 28 mmol/L (22-29); Chloride 104 mmol/L (98-107); Creatinine Clr Calc Pharmacy 45.5359; Globulin 2.6 g/dL (1.3-4.6); Glucose 182 mg/dL (65-115); Osmolality Calculated 296 mOsm/kg (285-295); Potassium 3.7 mmol/L (3.5-5.1); Sodium 141 mmol/L (136-145); Total Bilirubin 0.3 mg/dL (0.15-1.2); Total Protein 6.6 g/dL (6.6-8.7)
--- NOTE | 2022-03-04 22:47 | PM.HP ---
Providers/Chief Complaint Admitting Physician: Maritza Ford DO Primary Care Provider: Genaro Munoz Chief Complaint: Fall, Left hip pain History of Present Illness The patient is an 87-year-old female who was transferred to the emergency department after sustaining a fall. The patient is quite 10 tangential regarding answers to the questions that I posed to her. On top of this, it appears that the patient received morphine in the emergency department and is not able to provide me with specific answers as she appears somewhat sedated. From what I was able to ascertain, the patient had a fall at a proximally 4:30 PM. She denies chest pain, dyspnea, lightheaded, dizziness, diaphoresis, palpitations, sense of rapid heartbeat, since she knee regular heartbeat, diplopia, blurry vision, paresthesia/anesthesia/myasthenia of any part part of her body preceding the event or after the event. She cannot state with certainty what caused her to fall. She denies a history of seizure. She presents for further evaluation Review of Systems General: Reports: 10 or more systems reviewed and unremarkable except in HPI and below Medications/Allergies Home Medications Medication Instructions Recorded Confirmed Last Taken Type aripiprazole 2 mg tablet 2 mg PO DAILY@08 12/18/21 12/18/21 12/17/21 History atenolol 50 mg tablet 50 mg PO BEDTIME 12/18/21 12/18/21 12/17/21 History citalopram 10 mg tablet 10 mg PO DAILY@12 12/18/21 12/18/21 12/17/21 History trazodone 100 mg tablet 200 mg PO BEDTIME 12/18/21 12/18/21 12/17/21 History aspirin 81 mg tablet,delayed 81 mg PO DAILY #30 tab 12/22/21 Unknown Rx release atorvastatin 40 mg tablet 40 mg PO BEDTIME #60 tab 12/22/21 Unknown Rx clopidogrel 75 mg tablet 75 mg PO DAILY #20 tab 12/22/21 Unknown Rx lisinopril 10 mg tablet 20 mg PO DAILY #60 tab 12/22/21 Unknown Rx Allergies Allergy/AdvReac Type Severity Reaction Status Date / Time No Known Allergies Allergy Verified 12/18/21 09:14 PFSH Acute PFSH: Medical History Depression Depression with anxiety HTN (hypertension) Insomnia Family History Daughter Psychiatric illness Social History Smoking and tobacco status: never smoked Alcohol intake: never Household members: spouse and children Marital status: Number of children: 2 Vitals/I&O/Wt Last Vital Signs Temp 97.7 F 03/04/22 21:12 Pulse 61 03/04/22 22:33 Resp 20 H 03/04/22 22:33 BP 197/76 03/04/22 22:33 Pulse Ox 96 03/04/22 22:33 Weight last 48 hrs Weight 63.503 kg Physical Exam Narrative: General: -Alert -No acute distress -No dyspnea -No tachypnea Head: -Atraumatic -Normocephalic Eyes: -Pupils equally round and reactive to light and accommodation -Extraocular muscles intact Neurological: -Cranial nerves II-XII intact Neck: -No jugular venous distention -No thyromegaly -No cervical lymphadenopathy Heart: -Regular rate -Regular rhythm -No murmurs -No gallops -No rubs Lungs: -No wheeze -No rhonchi -No rales ? Abdomen: -Normal bowel sounds in all four quadrants -No rebound -No guarding -No tenderness Extremities: -2/4 pulse in all four extremities -No clubbing -No cyanosis -No edema -No calf tenderness present bilaterally -Negative Krishan?s sign bilaterally Musculoskeletal: -5/5 bilateral upper extremity strength -5/5 bilateral lower extremity strength -Sensorium of bilateral upper extremities are equal and intact -Sensorium of bilateral lower extremities are equal and intact ? Additional Details / Additional Findings / Exceptions / Miscellaneous: Data : 03/04/22 21:33 03/04/22 21:33 A&P Assessment and plan (1) Closed fracture of left hip: Status: Acute Qualifiers: Encounter type: initial encounter Qualified Code(s): S72.002A - Fracture of unspecified part of neck of left femur, initial encounter for closed fracture Plan mid left femoral neck fracture. I have been notified by the emergency department physician that orthopedic surgery will evaluate the patient on the morning of March 05, 2022. Chest x-ray unremarkable. PT/INR within normal limits. EKG unremarkable. Patient recently had an echocardiogram which was unremarkable aside from mild to moderate aortic regurgitation. PTT pending. Nothing by mouth except for medications in anticipation of possible surgical intervention by orthopedic surgery on March 05, 2022. Urine analgesia. IV normal saline at 75 ML's per hour. Regarding risk stratification: From a cardiac standpoint, the patient denies a history of cardiac stenting, myocardial infarction, or CHF. From a pulmonary standpoint, the patient denies smoking and she denies a history of COPD/emphysema/chronic bronchitis. Patient denies a history of bleeding diathesis but it should be noted that the patient does take Plavix and 5 Mill grams by mouth daily for history of CVA. The patient denies a history of adverse reaction to anesthesia. Given all the after mentioned factors, the patient would be graded as moderate risk given her medical comorbidities and age however this time there appears to be no contraindications to proceeding with surgical intervention if orthopedic surgery determines that this is necessary. status post fall. From what little I am able to ascertain, this appears to be a mechanical fall. CT of the head is unremarkable. Patient does exhibits no neurological deficits. Will monitor patient on telemetry and checks her cardiac enzymes. Neuro checks every 4 hours Mild to moderate aortic regurgitation Insomnia History of CVA Macrocytosis. Check TSH, free T4, B12, folate level Depression Anxiety Hyperlipidemia Hypertension DVT Proflex is. Bilateral SCD Attestations Medical Necessity Statement*: the patient's anticipate length a straight is greater than 2 midnights for treatment/management of her left hip fracture Coding Level of Care Code Acute Mining Technician for Loy Ontiveros Diagnoses Closed fracture of left hip S72.002A Encounter type: initial encounter
--- NOTE | 2022-03-04 22:51 | ECG_ITS ---
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 Measurements Intervals [place] Rate: 63 P: 77 PA: 160 QRS: -29 QRSD: 125 T: 18 QT: 476 QTc: 489 Interpretive Statements SINUS RHYTHM BORDERLINE LEFT AXIS DEVIATION [QRS AXIS < -20] RIGHT BUNDLE BRANCH BLOCK [120+ ms QRS DURATION, UPRIGHT V1, 40+ ms S IN I/aVL/V4/V5/V6] Compared to ECG 03/04/2022 21:54:33 Sinus bradycardia no longer present Electronically Signed On 03-05-2022 21:59:31 CDT by Zaire Vines M.D. [id number]
[2022-03-04 23:39] LABS: Partial Thromboplastin Time 25.1 SECONDS (23.9-36.7)
[2022-03-04 23:48] LABS: Troponin(5th) Baseline 19 ng/L (0-10)
[2022-03-04 23:53] LABS: Free T4 Free Thyroxine 1.37 ng/dL (0.82-1.77); Thyroid Stimulating Hormone 3.97 uIU/mL (0.27-4.20)
[2022-03-05] VITALS (29 sets, daily range): BP systolic 97–201; BP diastolic 47–92; PULSE 72–112; RESP 10–25; TEMP 36.6–37.5; O2SAT 90–100
[2022-03-05] MEDS: hyDRALAzine 20 mg/mL INJ 1 mL 10 MG IVP (00:42)
[2022-03-05] MEDS: HYDROcodone-acetaminophen 5-325 mg Tablet 1 TAB PO (00:43)
[2022-03-05] MEDS: sodium chloride 0.9% 1,000 ML 75 ML IV ×2 (00:44→19:50)
[2022-03-05 00:50] LABS: Vitamin B12 370 pg/mL (232-1245)
--- NOTE | 2022-03-05 00:51 | ECG_ITS ---
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 Measurements Intervals [place] Rate: 85 P: 81 ME: 151 QRS: -7 QRSD: 126 T: 28 QT: 436 QTc: 519 Interpretive Statements SINUS RHYTHM RIGHT BUNDLE BRANCH BLOCK [120+ ms QRS DURATION, UPRIGHT V1, 40+ ms S IN I/aVL/V4/V5/V6] Compared to ECG 03/04/2022 22:59:40 No significant changes Electronically Signed On 03-05-2022 22:14:42 CDT by Zaire Vines M.D. [id number]
[2022-03-05 02:40] LABS: Troponin 5 2HR 16.11 ng/L (0-10)
[2022-03-05 02:45] LABS: Troponin 5 2HR Delta -2.89 ABS# (0-10)
[2022-03-05 04:33] LABS: Basophils % 0.3 %; Eosinophils % 0.1 %; Hematocrit 38.7 % (37.0-47.0); Lymphocytes # 0.8 10^3/uL (0.8-4.8); Mean Corpuscular Hemoglobin 32.1 pg (28.0-34.0); Mean Corpuscular Volume 103.5 fl (81-99); Mean Platelet Volume 10.6 fL (7.4-10.4); Monocytes # 0.9 10^3/uL (0.2-0.9); Monocytes % 7.2 %; Neutrophils # 9.98 10^3/uL (1.8-7.7); Neutrophils % 84.9 %; Nucleated Red Blood Cells % 0 %; Platelet Count 207 10^3/cmm (130-400); Red Blood Count 3.74 10^6/uL (4.1-5.3); Red Cell Distribution Width 12.3 % (12.1-15.1); White Blood Count 11.8 10^3/uL (4.0-10.0)
--- NOTE | 2022-03-05 04:51 | ECG_ITS ---
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 Measurements Intervals [place] Rate: 82 P: 87 CT: 151 QRS: 1 QRSD: 122 T: 32 QT: 433 QTc: 507 Interpretive Statements SINUS RHYTHM RIGHT BUNDLE BRANCH BLOCK [120+ ms QRS DURATION, UPRIGHT V1, 40+ ms S IN I/aVL/V4/V5/V6] Compared to ECG 03/05/2022 03:14:07 No significant changes Electronically Signed On 03-05-2022 22:14:50 CDT by Zaire Vines M.D. [id number]
[2022-03-05 05:00] LABS: Troponin 5 6HR 19.42 ng/L (0-10)
[2022-03-05 05:05] LABS: Troponin 5 6HR Delta 0.42 ng/L (0-12)
[2022-03-05 05:18] LABS: Folate Level 8.2 ng/mL (4.8-37.3)
--- NOTE | 2022-03-05 08:51 | PC.PHAR ---
PT UNABLE TO VERIFY- CALLED WHO HELPS HER WITH MEDICATIONS AND HE WAS ABLE TO READ RX BOTTLES TO ME TO VERIFY HOME MEDICATIONS.
--- NOTE | 2022-03-05 12:36 | PM.PN ---
Subjective Subjective: Seen this AM. Patient resting comfortably in bed. Denies having any pain at this time while she is not moving. She says she does not know what happened yesterday but does remember that she just fell. She is aware that she has a hip fracture and will be going for surgery today. Vitals/I&O/Wt Last Vital Signs Temp 98.8 F 03/05/22 10:56 Pulse 72 03/05/22 10:56 Resp 16 03/05/22 10:56 BP 156/74 03/05/22 10:56 Pulse Ox 94 03/05/22 10:56 03/04/22 03/05/22 03/05/22 22:59 06:59 14:59 Output Total 0 / 0 200 / 200 Balance 0 / 0 -200 / -200 Weight last 48 hrs Weight 63.503 kg Weight 63.503 kg Physical Exam Narrative: General: Alert oriented, patient seen laying in bed appearing comfortable at this time. HEENT: Normocephalic, atraumatic, EOMI, breathing room air Cardio: Regular rate rhythm, normal S1-S2, no murmurs rubs gallops Respiratory: Clear to auscultation bilaterally, no wheezes no rhonchi. GI: Abdomen soft, nontender, nondistended, bowel sounds + Extremities: no edema, no cyanosis, left extremity externally rotated. Data : 03/05/22 04:20 03/04/22 21:33 A&P Assessment and plan (1) Closed fracture of left hip: Status: Acute Qualifiers: Encounter type: initial encounter Qualified Code(s): S72.002A - Fracture of unspecified part of neck of left femur, initial encounter for closed fracture Plan #Left femoral neck fracture #Insomnia #Mild to moderate regurgitation #History of CVA #Macrocytosis #Depression, anxiety #Hyperlipidemia #Hypertension ? Chest x-ray unremarkable at admission: PT/INR within normal limits. EKG unremarkable. Recent echocardiogram unremarkable aside from mild to moderate regurgitation. Patient has been n.p.o. since midnight. Continue IV fluids 75 cc/h ? Please see note from admitting physician and H&P regarding patient's cardiac clearance. Patient is on Plavix and there is a high risk of bleed. Patient does need hip surgery at this point. Discussed with surgeon the patient, and her . Knowing the risk of bleed patient and willing to proceed. ? PT OT after surgery ? Continue home medications. Plavix has been held. Full code Attestations Medical Necessity Statement*: Will require 40 to 72-hour stay for hip surgery today and postop care. Coding Level of Care Code Acute Self Pay Collector for Loy Ontiveros Diagnoses Closed fracture of left hip S72.002A Encounter type: initial encounter
--- NOTE | 2022-03-05 13:41 | ANES.PREANE2 ---
Pre-Anesthetic Assessment Height/Weight: Height 1.63 m Weight 63.503 kg Temp Pulse Resp BP Pulse Ox 99.5 F 92 18 188/72 90 03/05/22 13:37 03/05/22 13:37 03/05/22 13:37 03/05/22 13:37 03/05/22 13:37 Operation Date: 03/05/22 14:30 Proposed Procedures p Hemiarthroplasty Hip Bipolar(Not Applicable) - Shar Tejada, DO Familial anesthetic complications: none Was Beta Kaity taken within 24 hours: Yes Was Clonidine taken within 24 hours: N/A Last intake: Intake Last Liquid Date 03/04/22 Last Liquid Time 23:30 Last Solid Date 03/04/22 Last Solid Time 17:30 Social No alcohol and No tobacco Exam alert, oriented x 3, clear to auscultation bilaterally and regular rate & rhythm Airway Submandibular: within normal limits Cervical ROM: within normal limits Mallampati: Class II Dentition: chipped Pulmonary None reported CV/HEM Hypertension None reported Hepatic None reported GI Gastroesophageal Reflux Disease Metabolic None reported Musc/skel Osteoarthritis/DJD hip fx Neuropsych Anxiety, Cerebrovascular Accident (No specific symptoms, weak all over per patient ) and Depression Anesthetic Plan ASA status: 3 Anesthesia: Anesthesia Evaluation and General Other: We discussed risk and benefits of general anesthesia including PONV, sore throat (sometimes severe), corneal abrasion, positioning and peripheral nerve injuries, life threatening allergic reaction, post operative ICU admission requiring prolonged intubation, stroke, heart attack, , and rare incidences of recall. Patient consents to proceed with general anesthesia. Risk of > 500 ml blood loss (7ml/kg in children): No Medications/Allergies Home Medications Medication Instructions Recorded Confirmed Last Taken Type aripiprazole 2 mg tablet 2 mg PO DAILY@08 12/18/21 03/05/22 12/17/21 History atenolol 50 mg tablet 50 mg PO BEDTIME 12/18/21 03/05/22 12/17/21 History citalopram 10 mg tablet 10 mg PO DAILY@12 12/18/21 03/05/22 12/17/21 History trazodone 100 mg tablet 200 mg PO BEDTIME 12/18/21 03/05/22 12/17/21 History aspirin 81 mg tablet,delayed 81 mg PO DAILY #30 tab 12/22/21 03/05/22 Unknown Rx release atorvastatin 40 mg tablet 40 mg PO BEDTIME #60 tab 12/22/21 03/05/22 Unknown Rx clopidogrel 75 mg tablet 75 mg PO DAILY #20 tab 12/22/21 03/05/22 Unknown Rx lisinopril 10 mg tablet 20 mg PO DAILY #60 tab 12/22/21 03/05/22 Unknown Rx Allergies Allergy/AdvReac Type Severity Reaction Status Date / Time No Known Allergies Allergy Verified 03/05/22 08:50 Current Medications Generic Name Dose Route Start Last Admin Trade Name Freq PRN Reason Stop Dose Admin Hydrocodone Bitart/Acetaminophen 1 tab 03/04/22 23:21 03/05/22 00:43 Hydrocodone-Acetaminophen 5-325 Mg Tablet PO 1 tab Q4H PRN Administration MODERATE TO SEVERE PAIN Hydralazine HCl 10 mg 03/04/22 23:21 03/05/22 00:42 Hydralazine 20 Mg/Ml Inj 1 Ml IVP 10 mg Q4H PRN Administration prn sbp>150 Sodium Chloride 1,000 mls @ 75 mls/hr 03/04/22 23:21 03/05/22 00:44 Sodium Chloride 0.9% IV 75 mls/hr .[id number] MEREDITH Administration PFSH Anesthesia Medical History Depression Depression with anxiety HTN (hypertension) Insomnia Family History Daughter Psychiatric illness Social History Smoking and tobacco status: never smoked Alcohol intake: never Household members: spouse and children Marital status: Number of children: 2 Data Anesthesia : 03/05/22 04:20 03/04/22 21:33 Short CBC 03/04/22 03/05/22 Range/Units 21:33 04:20 WBC 8.6 11.8 H (4.0-10.0) 10^3/uL Hgb 12.6 12.0 (11.5-15.3) g/dL Hct 40.3 38.7 (37.0-47.0) % MCV 100.5 H 103.5 H (81-99) fl Plt Count 207 207 (130-400) 10^3/cmm Neut % (Auto) 77.3 84.9 % Neut # (Auto) 6.63 9.98 H (1.8-7.7) 10^3/uL BMP 03/04/22 21:33 Sodium 141 Potassium 3.7 Chloride 104 Carbon Dioxide 28 BUN 10 Creatinine 0.7 Glucose 182 H Calcium 9.1 Cardiac Enzymes 03/04/22 03/05/22 03/05/22 Range/Units 21:33 01:02 04:20 Troponin T Baseline 19 H (0-10) ng/L Troponin T 120 Minute 16.11 H (0-10) ng/L Delta Troponin T -2.89 L (0-10) ABS# Troponin T Hi Sens 6Hr 19.42 H (0-10) ng/L Troponin T Hi Sens 6Hr Delta 0.42 (0-12) ng/L Liver Function 03/04/22 Range/Units 21:33 Total Bilirubin 0.3 (0.15-1.2) mg/dL AST 16 (0-32) U/L ALT 11 (0-33) U/L Alkaline Phosphatase 97 (35-105) IU/L Albumin 4.0 (3.5-5.2) g/dL Coags 03/04/22 03/04/22 21:33 21:33 PT 12.60 INR 0.91 APTT 25.1 Cardiac Studies: Echocardiogram 12/19/21
[2022-03-05] MEDS: sodium chloride 0.9% 1,000 ML 30 ML IV (13:58)
--- NOTE | 2022-03-05 14:24 | P.CONIM_ITS ---
Providers/Reason For Consult Consulting Physician/Specialty*: hospitalist Reason for Consult*: hip fracture Attending Physician: Hallie Peoples MD Primary Care Provider: Genaro Munoz History of Present Illness History of Present Illness Isabel Smallwood is a 87 year old female ?states that she had fell just prior to arrival.? States she landed on her left hip and has left hip pain from her fall.? States that pain is sharp in nature rates it a 5 out of 10.? She denies any other injury states she is not able to ambulate pain is much worse with any movement.? Her pain is improved with rest Associated symptoms-after fall: Denies abdominal pain, chest pain, headache(s) or neck pain Review of Systems Const: Denies: fever(s), chills, body aches or change in appetite Eyes: Denies: blurry vision or eye discomfort ENMT: Denies: throat pain or dental pain Card: Denies: chest pain Resp: Denies: dyspnea GI: Denies: abdominal pain, nausea, vomiting or diarrhea : Denies: dysuria Musc: Reports: extremity pain; Denies: neck pain or back pain Skin/Breast: Denies: rash Neuro: Denies: headache(s) Psych: Denies: depression Alvino/Lymph: Denies: easy bruising All/Imm: Denies: urticaria Medications/Allergies Home Medications Medication Instructions Recorded Confirmed Last Taken Type aripiprazole 2 mg tablet 2 mg PO DAILY@08 12/18/21 03/05/22 12/17/21 History atenolol 50 mg tablet 50 mg PO BEDTIME 12/18/21 03/05/22 12/17/21 History citalopram 10 mg tablet 10 mg PO DAILY@12 12/18/21 03/05/22 12/17/21 History trazodone 100 mg tablet 200 mg PO BEDTIME 12/18/21 03/05/22 12/17/21 History aspirin 81 mg tablet,delayed 81 mg PO DAILY #30 tab 12/22/21 03/05/22 Unknown Rx release atorvastatin 40 mg tablet 40 mg PO BEDTIME #60 tab 12/22/21 03/05/22 Unknown Rx clopidogrel 75 mg tablet 75 mg PO DAILY #20 tab 12/22/21 03/05/22 Unknown Rx lisinopril 10 mg tablet 20 mg PO DAILY #60 tab 12/22/21 03/05/22 Unknown Rx Allergies Allergy/AdvReac Type Severity Reaction Status Date / Time No Known Allergies Allergy Verified 03/05/22 08:50 Current Medications Generic Name Dose Route Start Last Admin Trade Name Jeniffer PRN Reason Stop Dose Admin Hydrocodone Bitart/Acetaminophen 1 tab 03/04/22 23:21 03/05/22 00:43 Hydrocodone-Acetaminophen 5-325 Mg Tablet PO 1 tab Q4H PRN Administration MODERATE TO SEVERE PAIN Hydralazine HCl 10 mg 03/04/22 23:21 03/05/22 00:42 Hydralazine 20 Mg/Ml Inj 1 Ml IVP 10 mg Q4H PRN Administration prn sbp>150 Sodium Chloride 1,000 mls @ 75 mls/hr 03/04/22 23:21 03/05/22 00:44 Sodium Chloride 0.9% IV 75 mls/hr .[id number] MEREDITH Administration Sodium Chloride 1,000 mls @ 30 mls/hr 03/05/22 13:45 03/05/22 13:58 Sodium Chloride 0.9% IV 03/06/22 13:44 30 mls/hr .Q24H MEREDITH Administration PFSH Acute PFSH: Medical History Depression Depression with anxiety HTN (hypertension) Insomnia Family History Daughter Psychiatric illness Social History Smoking and tobacco status: never smoked Alcohol intake: never Household members: spouse and children Marital status: Number of children: 2 Vitals/I&O/Wt Last Vital Signs Temp 99.5 F 03/05/22 13:37 Pulse 92 03/05/22 13:37 Resp 18 03/05/22 13:37 BP 188/72 03/05/22 13:37 Pulse Ox 90 03/05/22 13:37 03/04/22 03/05/22 03/05/22 22:59 06:59 14:59 Output Total 0 / 0 200 / 200 Balance 0 / 0 -200 / -200 Weight last 48 hrs Weight 140 lb Weight 140 lb Physical Exam Narrative: ENERAL: Patient in no acute distress. CARDIAC: Regular rate and rhythm. CHEST: Normal inspiratory effort, normal respiratory rate. ABDOMEN: Soft and nontender. SKIN: Clear, warm and intact. NEURO?PSYCH: The patient is alert and oriented to person, place and time. Sensorv /SILT Motor StrengthShoulder abduction C5 5/5Wrist extension C6 5/5Elbow extension C7 5/5Hand Business Process Modeler C8 5/5Finger abduction T15/5 Radial/ Ulnar/ Median n intact LowerSensory (SILT)Motor StrengthHin flexion L2/3Ant/inner thigh 5/5Hip adduction L2/3 5/5Knee extension L4 Lat thigh, 5/5Toe dorsiflexion L5 5/5Ankle dorsiflexion L5/ T17Sclaqei flexion S1 5/5 DTRBleeps 2+Triceps 2+Brachioradialis 2+Patellar 2+Achilles 2+ MUSCULOSKELETAL: [] UPPEREXTREMITIES: The patient had full active ROM in fingers, wrist, elbow, and shoulder. The patient demonstrated ability to fully flex/extend/abduct/adduct fingers, make ok sign, cross 2nd/3rd digits, extend 1st digit fully.. Radial pulse 2+, CR<2 seconds. LOWER EXTREMITIES: Pt has full, active ROM of toes, ankle, knee, and hip. Dorsalis pedis/posterior tibialis pulses 2+, CR<2 seconds. SPINE: Skin warm, dry, intact. did not do the left side because of hip fracture Urinary Catheter Management: 2-way Urethral: Cath Placed During This Visit: yes Urinary Catheter Date of Insertion: 03/05/22 Urinary Catheter Time of Insertion: 13:27 Data : 03/05/22 04:20 03/04/22 21:33 A&P Assessment and plan (1) Closed fracture of left hip: left hip hemiarthroplasty Status: Acute Qualifiers: Encounter type: initial encounter Qualified Code(s): S72.002A - Fracture of unspecified part of neck of left femur, initial encounter for closed fracture Coding Level of Care Code Acute Nuisance Wildlife Specialist for g Fwd Diagnoses Closed fracture of left hip S72.002A Encounter type: initial encounter
[2022-03-05] MEDS: vancomycin 1,000 MG SDV 1000 MG XX (15:18)
--- NOTE | 2022-03-05 15:40 | P.OP_ITS ---
Operative Report Date of procedure: March 05, 2022 Pre-op diagnosis: left femoral neck fracture Post-op diagnosis: same Procedure done: Left hip hemiarthroplasty Surgeon: Shar Tejada Plant Maintenance Engineer: Martin Mckeon Plant Maintenance Engineer: The legislative assistant, Martin Mckeon, LINA was needed for his expertise with hip fractures. He was important and necessary throughout the procedure to complete in a safe and timely manner. He assisted with patient positioning prepping and draping tissue retraction suctioning of the operative field protection of the critical structures and tissue closure Estimated blood loss (mL): 100 Procedure: left hip hemiarthroplasty Patient is brought to the operative suite after undergoing anesthesia was placed in the lateral he was positioned with the left side up. All areas impingement well-padded. Patient was prepped and draped in a sterile fashion. Incisions made over the left hip laterally. The IT band was split and a modified Garrett approach was used. The abductors and capsule taken anteriorly. The femoral ne ck cut was made approximately 1 fingerbreadth above the lesser trochanter. The femoral head was then removed using a Castano. He was measured to be a 45 mm. Attention was then brought to preparing the femoral canal. The box stamper was used followed by the canal finder. The broach was used in sequential pattern up to 5. A 5 mm stem from Kemmerer was then inserted. With a -4 neck length and a 45 mm head. Hip was reduced felt to be stable in all positions. The drain was placed because the patient was on blood thinners and had a little bit of bleeding during the case and 1 avoid getting a hematoma. The abductors and the capsule were then repaired using FiberWire. And then the IT band was closed with 0 Vicryl skin was closed with 2-0 Vicryl and sandra. Sterile dressings were applied and patient was transferred to the PACU in stable condition.
--- NOTE | 2022-03-05 16:44 | ANE.PACU2 ---
Inpatient post-anesthesia follow up: Airway intact: Yes Vital signs: Temperature 98.3 F Pulse Rate 74 Respiratory Rate 18 Blood Pressure 118/53 Pulse Oximetry 94 Oxygen Delivery Me thod Room Air Oxygen Flow Rate 8 Fraction of Inspir ed Oxygen Hydration adequate: Yes Nausea and vomiting: No Pain level: 3 Mental status: Baseline
[2022-03-06] VITALS (15 sets, daily range): BP systolic 110–147; BP diastolic 69–74; PULSE 80–136; RESP 16–24; TEMP 36.4–37.1; O2SAT 96–133
[2022-03-06 04:19] LABS: Basophils % 0.2 %; Hematocrit 28.2 % (37.0-47.0); Hemoglobin 8.6 g/dL (11.5-15.3); Lymphocytes # 0.7 10^3/uL (0.8-4.8); Lymphocytes % 5.5 %; Mean Corpuscular HGB Conc 30.5 g/dL (30.0-36.0); Mean Corpuscular Volume 104.8 fl (81-99); Monocytes # 1.8 10^3/uL (0.2-0.9); Monocytes % 13.9 %; Neutrophils # 10.52 10^3/uL (1.8-7.7); Nucleated Red Blood Cells % 0 %; Platelet Count 188 10^3/cmm (130-400); Red Blood Count 2.69 10^6/uL (4.1-5.3); Red Cell Distribution Width 12.7 % (12.1-15.1); White Blood Count 13.1 10^3/uL (4.0-10.0)
[2022-03-06 04:39] LABS: Anion Gap 13.3 (5-19); Blood Urea Nitrogen 17 mg/dL (8-23); Calcium 8.2 mg/dL (8.5-10.5); Carbon Dioxide 25 mmol/L (22-29); Chloride 109 mmol/L (98-107); Creatinine Clr Calc Pharmacy 45.5359; Glucose 176 mg/dL (65-115); Osmolality Calculated 302 mOsm/kg (285-295); Potassium 4.3 mmol/L (3.5-5.1); Sodium 143 mmol/L (136-145)
[2022-03-06] MEDS: enoxaparin 40 mg/0.4 mL Syringe SUBCUT (06:07)
--- NOTE | 2022-03-06 13:07 | P.PN_ITS ---
Subjective Subjective: Seen this morning. Patient appears a little confused but after redirection she over is aware where she is and what is going on. I believe she is hard of hearing. present at bedside. Patient would like to know where her dentures are. Vitals/I&O/Wt Last Vital Signs Temp 98.0 F 03/06/22 07:52 Pulse 99 03/06/22 12:00 Resp 17 03/06/22 12:00 BP 147/73 03/06/22 07:52 Pulse Ox 98 03/06/22 08:00 03/05/22 03/06/22 03/06/22 22:59 06:59 14:59 Intake Total 1050 / 2050 50 / 2100 1000 / 1000 Output Total 350 / 550 350 / 350 Balance 700 / 1500 50 / 1550 650 / 650 Weight last 48 hrs Weight 63.503 kg Weight 63.503 kg Physical Exam Narrative: General: Alert oriented x3, patient seen sitting up in chair with at bedside. Hard of hearing. HEENT: Normocephalic, atraumatic, EOMI, breathing normally Cardio: Regular rate rhythm, normal S1-S2, no murmurs rubs gallops Respiratory: Good bilateral air entry, no wheezes no rhonchi appreciated, diminished at bases GI: Abdomen soft, nontender, nondistended, bowel sounds + Extremities: no edema, no cyanosis, mild hip pain at incision side, mild edema present Urinary Catheter Management: 2-way Urethral: Cath Placed During This Visit: yes Reason for Continuing Indwelling Catheter: Required Immobilization for Trauma or Surgery or Anesthesia Urinary Catheter Date of Insertion: 03/05/22 Urinary Catheter Time of Insertion: 13:27 Data : 03/06/22 03:47 03/06/22 03:47 A&P Assessment and plan (1) Closed fracture of left hip: Status: Acute Qualifiers: Encounter type: initial encounter Qualified Code(s): S72.002A - Fracture of unspecified part of neck of left femur, initial encounter for closed fracture Plan #Left femoral neck fracture s/p arthroplasty #Insomnia #Mild to moderate regurgitation #History of CVA #Macrocytosis #Depression, anxiety #Hyperlipidemia #Hypertension ? Chest x-ray unremarkable at admission: PT/INR within normal limits.? EKG unremarkable.? Recent echocardiogram unremarkable aside from mild to moderate regurgitation.? - Continue cardiac diet - DC IV fluids ? Continue lovenox 40 for DVT PPX. ? PT eval. will await recommendations ? Continue home medications.? Restart plavix Full code Attestations Medical Necessity Statement*: still has wound drain in place. will eventually need placement to SNF Coding Level of Care Code Acute Network Consultant for Chg Fwd Diagnoses Closed fracture of left hip S72.002A Encounter type: initial encounter
--- NOTE | 2022-03-06 13:44 | PM.PN ---
Subjective Subjective: Patient is laying in bed comfortable. Vitals/I&O/Wt Last Vital Signs Temp 97.9 F 03/06/22 13:21 Pulse 94 03/06/22 13:21 Resp 18 03/06/22 13:21 BP 116/73 03/06/22 13:21 Pulse Ox 96 03/06/22 13:21 03/05/22 03/06/22 03/06/22 22:59 06:59 14:59 Intake Total 1050 / 2050 50 / 2100 1000 / 1000 Output Total 350 / 550 350 / 350 Balance 700 / 1500 50 / 1550 650 / 650 Weight last 48 hrs Weight 140 lb Weight 140 lb Physical Exam Narrative: Wound is clean dry and intact Urinary Catheter Management: 2-way Urethral: Cath Placed During This Visit: yes Reason for Continuing Indwelling Catheter: Required Immobilization for Trauma or Surgery or Anesthesia Urinary Catheter Date of Insertion: 03/05/22 Urinary Catheter Time of Insertion: 13:27 Data : 03/06/22 03:47 03/06/22 03:47 A&P Assessment and plan (1) Closed fracture of left hip: DC Hemovac drain Up with physical therapy Status: Acute Qualifiers: Encounter type: initial encounter Qualified Code(s): S72.002A - Fracture of unspecified part of neck of left femur, initial encounter for closed fracture Attestations Medical Necessity Statement*: Primary service. Coding Level of Care Code Acute Clinical Documentation Consultant for Loy Ontiveros Diagnoses Closed fracture of left hip S72.002A Encounter type: initial encounter
[2022-03-06] MEDS: HYDROcodone-acetaminophen 5-325 mg Tablet PO (15:05)
[2022-03-06] MEDS: sodium chloride 0.9% 1,000 ML 75 ML IV (15:11)
--- NOTE | 2022-03-06 16:08 | ECG_ITS ---
[facility] Test Date: 2022-03-06 Pat Name: Isabel Smallwood Department: Room: 269 Gender: Female Dowel Pointer: : 1935 Requested By: Hallie Peoples Order Number: [id number] Giancarlo MD: Rudolph Graves M.D. Measurements Intervals Walters Rate: 110 P: 86 CT: 142 QRS: 10 QRSD: 117 T: 33 QT: 363 QTc: 492 Interpretive Statements SINUS TACHYCARDIA WITH FREQUENT SUPRAVENTRICULAR PREMATURE COMPLEXES RIGHT BUNDLE BRANCH BLOCK [120+ ms QRS DURATION, UPRIGHT V1, 40+ ms S IN I/aVL/V4/V5/V6] ST DEVIATION AND MODERATE T-WAVE ABNORMALITY, CONSIDER ANTEROLATERAL ISCHEMIA [-0.1+ mV T-WAVE IN V3-V6] Compared to ECG 03/05/2022 05:12:22 T-wave abnormality now present Possible ischemia now present Sinus rhythm no longer present Electronically Signed On 03-07-2022 20:38:08 CDT by Rudolph Graves M.D. [email or web address]
[2022-03-06] MEDS: sodium chloride 0.9% 500 ML 999 ML IV (17:08)
[2022-03-06 17:45] LABS: Troponin(5th) Baseline 36 ng/L (0-10)
[2022-03-06] MEDS: trazodone 100 mg Tablet 200 MG PO (19:57)
[2022-03-06] MEDS: atorvastatin 40 mg Tablet PO (19:57)
[2022-03-06] MEDS: atenolol 50 mg Tablet PO (19:57)
[2022-03-07] VITALS (13 sets, daily range): BP systolic 105–133; BP diastolic 68–81; PULSE 70–112; RESP 15–18; TEMP 36.4–36.8; O2SAT 94–98
[2022-03-07] MEDS: enoxaparin 40 mg/0.4 mL Syringe SUBCUT (04:59)
[2022-03-07 05:34] LABS: Basophils % 0.2 %; Eosinophils % 0.1 %; Hematocrit 27.7 % (37.0-47.0); Hemoglobin 8.9 g/dL (11.5-15.3); Lymphocytes # 1.1 10^3/uL (0.8-4.8); Lymphocytes % 10.7 %; Mean Corpuscular HGB Conc 32.1 g/dL (30.0-36.0); Mean Corpuscular Hemoglobin 32.4 pg (28.0-34.0); Mean Corpuscular Volume 100.7 fl (81-99); Mean Platelet Volume 11.1 fL (7.4-10.4); Monocytes # 1.6 10^3/uL (0.2-0.9); Monocytes % 14.8 %; Neutrophils # 7.89 10^3/uL (1.8-7.7); Neutrophils % 73.8 %; Nucleated Red Blood Cells % 0 %; Platelet Count 134 10^3/cmm (130-400); Red Blood Count 2.75 10^6/uL (4.1-5.3); Red Cell Distribution Width 12.8 % (12.1-15.1); White Blood Count 10.7 10^3/uL (4.0-10.0)
[2022-03-07 05:45] LABS: Anion Gap 10.7 (5-19); Blood Urea Nitrogen 24 mg/dL (8-23); Calcium 8.2 mg/dL (8.5-10.5); Carbon Dioxide 23 mmol/L (22-29); Chloride 111 mmol/L (98-107); Creatinine Clr Calc Pharmacy 45.5359; Glucose 139 mg/dL (65-115); Magnesium 2.2 mg/dL (1.7-2.3); Osmolality Calculated 298 mOsm/kg (285-295); Potassium 3.7 mmol/L (3.5-5.1); Sodium 141 mmol/L (136-145)
[2022-03-07 06:06] LABS: Slide Review Slide Review Perform
[2022-03-07] MEDS: sodium chloride 0.9% 1,000 ML 75 ML IV (07:02)
[2022-03-07] MEDS: ARIPiprazole 2 mg Tablet PO (08:02)
[2022-03-07] MEDS: aspirin 81 mg EC Tablet PO (08:02)
[2022-03-07] MEDS: clopidogrel 75 mg Tablet PO (08:02)
--- NOTE | 2022-03-07 09:22 | P.PN_ITS ---
Subjective Subjective: POD 2 Patient sitting up in the chair. Mild left hip discomfort. Denies any chest pain, shortness of breath. Vitals/I&O/Wt Last Vital Signs Temp 97.5 F L 03/07/22 08:00 Pulse 112 H 03/07/22 08:00 Resp 16 03/07/22 08:00 BP 113/73 03/07/22 08:00 Pulse Ox 94 03/07/22 07:36 03/06/22 03/07/22 03/07/22 22:59 06:59 14:59 Intake Total 695 / 2695 855 / 855 Output Total 270 / 640 225 / 865 Balance 425 / 2055 -225 / 1830 855 / 855 Physical Exam Narrative: Patient is alert and orient x3 has good general appearance normal normal affect. Hip incision is in and dry. Good motor strength throughout both lower extremities. Fires in all motor groups. Skin is clear warm, feet are warm with good cap refill in all digits. Normal sensation to light touch. Calves are supple, no medial thigh tenderness, negative Homans' sign. No palpable edema peripherally. Urinary Catheter Management: 2-way Urethral: Cath Placed During This Visit: yes Reason for Continuing Indwelling Catheter: Required Immobilization for Trauma or Surgery or Anesthesia Urinary Catheter Date of Insertion: 03/05/22 Urinary Catheter Time of Insertion: 13:27 Data : 03/07/22 05:16 03/07/22 05:16 A&P Assessment and plan (1) Displaced fracture of left femoral neck: Physical therapy was working with her today. Encouraged incentive spirometry for pulmonary toilet. We will await social security benefits interviewer for placement. Have the dressing changed to the left hip with a Silverlon dressing. See her back in the office for staple removal in 2 weeks. Status: Acute Attestations Medical Necessity Statement*: defer to medical team Coding Level of Care Code Acute Auto Body Shop Manager for Loy Ontiveros Diagnoses Displaced fracture of left femoral neck S72.002A
[2022-03-07] MEDS: citalopram 20 mg Tablet 10 MG PO (11:13)
--- NOTE | 2022-03-07 13:10 | PM.PN ---
Subjective Subjective: Seen this morning. She had an uneventful night. Vitals/I&O/Wt Last Vital Signs Temp 97.5 F L 03/07/22 12:00 Pulse 70 03/07/22 12:00 Resp 15 03/07/22 12:00 BP 133/81 03/07/22 12:00 Pulse Ox 97 03/07/22 11:34 03/06/22 03/07/22 03/07/22 22:59 06:59 14:59 Intake Total 695 / 2695 975 / 975 Output Total 270 / 640 225 / 865 150 / 150 Balance 425 / 2055 -225 / 1830 825 / 825 Physical Exam Narrative: General: Alert oriented x3, patient seen laying in bed appearing comfortable. HEENT: Normocephalic, atraumatic, EOMI, breathing normally Cardio: Regular rate rhythm, normal S1-S2, no murmurs rubs gallops Respiratory: Good bilateral air entry, no wheezes no rhonchi appreciated, diminished at bases GI: Abdomen soft, nontender, nondistended, bowel sounds + Extremities: no edema, no cyanosis, mild hip pain at incision side, incision appears clean, no drainage noted. I was present during dressing change this morning. Delmar intact. Urinary Catheter Management: 2-way Urethral: Cath Placed During This Visit: yes Reason for Continuing Indwelling Catheter: Required Immobilization for Trauma or Surgery or Anesthesia Urinary Catheter Date of Insertion: 03/05/22 Urinary Catheter Time of Insertion: 13:27 Data : 03/07/22 05:16 03/07/22 05:16 A&P Assessment and plan (1) Displaced fracture of left femoral neck: Status: Acute (2) Closed fracture of left hip: Status: Acute Qualifiers: Encounter type: initial encounter Qualified Code(s): S72.002A - Fracture of unspecified part of neck of left femur, initial encounter for closed fracture (3) Hypertension: Status: Acute (4) Depression: Status: Acute Plan #Left femoral neck fracture s/p arthroplasty #Insomnia #Mild to moderate regurgitation #History of CVA #Macrocytosis #Depression, anxiety #Hyperlipidemia #Hypertension ? Chest x-ray unremarkable at admission: PT/INR within normal limits.? EKG unremarkable.? Recent echocardiogram unremarkable aside from mild to moderate regurgitation.? - Continue cardiac diet -Wound drain removed yesterday ? Continue lovenox 40 for DVT PPX. ? Continue home medications.? Continue plavix -Physical therapy recommended rehab. Full code Attestations Medical Necessity Statement*: Pending placement Coding Level of Care Code Acute Hook And Eye Sewing Machine Operator for Chg Fwd Diagnoses Displaced fracture of left femoral neck S72.002A Closed fracture of left hip S72.002A Encounter type: initial encounter Hypertension I10 Depression F32.A
--- NOTE | 2022-03-07 13:22 | PC.SOCIAL ---
IMM UPDATED, IMM dated and initialed copy given to patient and copy put in chart
[2022-03-07] MEDS: metoprolol tartrate 50 mg Tablet 25 MG PO ×2 (14:05→20:38)
[2022-03-07] MEDS: metoprolol tartrate 1 mg/1 mL SDV 5 mL 5 MG IVP (14:06)
[2022-03-07] MEDS: HYDROcodone-acetaminophen 5-325 mg Tablet PO (15:57)
[2022-03-07] MEDS: trazodone 100 mg Tablet 200 MG PO (20:38)
[2022-03-07] MEDS: atorvastatin 40 mg Tablet PO (20:39)
[2022-03-08] VITALS (11 sets, daily range): BP systolic 121–150; BP diastolic 71–79; PULSE 65–130; RESP 14–20; TEMP 36.4–37.1; O2SAT 90–100
[2022-03-08] MEDS: enoxaparin 40 mg/0.4 mL Syringe SUBCUT (03:35)
--- NOTE | 2022-03-08 07:41 | PM.PN ---
Subjective Subjective: POD 3 Patient resting comfortably. Denies chest pain shortness of breath. Mild pain in left hip but controlled with medicine. Vitals/I&O/Wt Last Vital Signs Temp 98.1 F 03/08/22 04:00 Pulse 100 03/08/22 05:49 Resp 16 03/08/22 04:00 BP 121/71 03/08/22 04:00 Pulse Ox 96 03/08/22 04:00 03/07/22 03/08/22 03/08/22 22:59 06:59 14:59 Intake Total 1100 / 2442.5 50 / 2492.5 Output Total 350 / 500 Balance 750 / 1942.5 50 / 1992.5 Physical Exam Narrative: Patient is alert and orient x3 has good general appearance normal normal affect.? Hip incision is in and dry. ? Good motor strength throughout both lower extremities.? Fires in all motor groups.? Skin is clear warm, feet are warm with good cap refill in all digits.? Normal sensation to light touch.? Calves are supple,? no medial thigh tenderness, negative Homans' sign.? No palpable edema peripherally. Urinary Catheter Management: 2-way Urethral: Cath Placed During This Visit: yes, but has since been removed by the nurse Reason for Continuing Indwelling Catheter: Decision to DC Catheter Urinary Catheter Date of Insertion: 03/05/22 Urinary Catheter Time of Insertion: 13:27 Date Urinary Catheter Removed: 03/07/22 Time Urinary Catheter Discontinued: 10:00 Data : 03/07/22 05:16 03/07/22 05:16 A&P Assessment and plan (1) Status post hip hemiarthroplasty: Continue to mobilize with physical therapy. Continue incentive spirometry for pulmonary toilet. We will see her postoperatively. Status: Acute Attestations Medical Necessity Statement*: For to medical team Coding Level of Care Code Acute District Ranger for Loy Ontiveros Diagnoses Status post hip hemiarthroplasty Z96.649
[2022-03-08] MEDS: ARIPiprazole 2 mg Tablet PO (08:39)
[2022-03-08] MEDS: aspirin 81 mg EC Tablet PO (08:39)
[2022-03-08] MEDS: clopidogrel 75 mg Tablet PO (08:39)
[2022-03-08] MEDS: metoprolol tartrate 50 mg Tablet PO ×3 (08:39→20:21)
--- NOTE | 2022-03-08 10:48 | P.PN_ITS ---
Subjective Subjective: No overnight events, currently pain is under control Patient is awake however stating that she is not sure what is going on, I did primary substance abuse counselor her that we are waiting for placement for rehab She is not confused no signs of stroke She is on room air Vitals/I&O/Wt Last Vital Signs Temp 97.5 F L 03/08/22 08:00 Pulse 71 03/08/22 09:10 Resp 16 03/08/22 08:00 BP 128/79 03/08/22 08:00 Pulse Ox 96 03/08/22 09:10 03/07/22 03/08/22 03/08/22 22:59 06:59 14:59 Intake Total 1100 / 2442.5 50 / 2492.5 Output Total 350 / 500 Balance 750 / 1942.5 50 / 1992.5 Physical Exam Narrative: Patient seems depressed, Withdrawn affect No signs of stroke No signs of confusion She is saturating well on room air No active pain Abdomen soft Edema of left leg noted S1, S2 EOMI, PERRLA Urinary Catheter Management: 2-way Urethral: Cath Placed During This Visit: yes, but has since been removed by the nurse Reason for Continuing Indwelling Catheter: Decision to DC Catheter Urinary Catheter Date of Insertion: 03/05/22 Urinary Catheter Time of Insertion: 13:27 Date Urinary Catheter Removed: 03/07/22 Time Urinary Catheter Discontinued: 10:00 Data : 03/07/22 05:16 03/07/22 05:16 A&P Assessment and plan (1) Status post hip hemiarthroplasty: Status: Acute (2) Depression: Status: Acute (3) Hypertension: Status: Acute (4) Displaced fracture of left femoral neck: Status: Acute (5) Closed fracture of left hip: Status: Acute Qualifiers: Encounter type: initial encounter Qualified Code(s): S72.002A - Fracture of unspecified part of neck of left femur, initial encounter for closed fracture Plan Patient is awaiting placement Continue PT for left femoral neck arthroplasty She does have signs of depression Drain has been removed Continue DVT prophylaxis of Lovenox She is on room air, incentive spirometer Appreciate orthopedic recommendations Discussed with director case management Attestations Medical Necessity Statement*: Anticipating discharge tomorrow Time Spent in Patient Care: 20min Coding Level of Care Code Acute [place] for Loy Ontiveros Diagnoses Status post hip hemiarthroplasty Z96.649 Depression F32.A Hypertension I10 Displaced fracture of left femoral neck S72.002A Closed fracture of left hip S72.002A Encounter type: initial encounter
[2022-03-08] MEDS: citalopram 20 mg Tablet 10 MG PO (12:52)
[2022-03-08] MEDS: trazodone 100 mg Tablet 200 MG PO (20:21)
[2022-03-08] MEDS: atorvastatin 40 mg Tablet PO (20:21)
[2022-03-09] VITALS: BP 122/81; PULSE 77; RESP 16; TEMP 36.7; O2SAT 98
[2022-03-09] MEDS: enoxaparin 40 mg/0.4 mL Syringe SUBCUT (03:57)
[2022-03-09 04:00] VITALS: BP 117/79; PULSE 67; RESP 16; TEMP 36.6; O2SAT 96
[2022-03-09 08:00] VITALS: BP 130/73; PULSE 75; RESP 18; TEMP 36.6; O2SAT 98
[2022-03-09] MEDS: clopidogrel 75 mg Tablet PO (08:09)
[2022-03-09] MEDS: ARIPiprazole 2 mg Tablet PO (08:09)
[2022-03-09] MEDS: aspirin 81 mg EC Tablet PO (08:09)
[2022-03-09] MEDS: metoprolol tartrate 50 mg Tablet PO (08:11)
--- NOTE | 2022-03-09 10:55 | P.DS_ITS ---
Discharge Providers Date of Admission: 03/04/22 22:26 Date of Discharge: March 09, 2022 Attending Provider at Admission: Maritza Ford DO Attending Provider at Discharge: Renita De Luna MD Primary Care Provider: Genaro Munoz Diagnoses at Discharge Discharge Diagnosis (1) Status post hip hemiarthroplasty: Status: Acute (2) Depression: Status: Acute (3) Hypertension: Status: Acute (4) Displaced fracture of left femoral neck: Status: Acute (5) Closed fracture of left hip: Status: Acute Qualifiers: Encounter type: initial encounter Qualified Code(s): S72.002A - Fracture of unspecified part of neck of left femur, initial encounter for closed fracture Reason for Visit Reason for Visit: Fall, Left hip pain Hospital Course Hospital Course Patient presents to the hospital on 03/04 after sustaining a fall, she was diagnosed with closed fracture of left hip, mid left femoral neck fracture, Dr. Tejada was consulted, patient is s/p left hip hemiarthroplasty, she did receive DVT prophylaxis after her surgery, postoperatively she required 2 to 3 L of oxygen secondary to atelectasis. She was counseled to use incentive spirometry. No signs of pneumonia, she remained afebrile, of note her heart rate does fluctuate between 75-130s, intermittent A. fib RVR, at home she takes atenolol, here she has been switched to metoprolol twice daily regimen for DVT prophylaxis she will need 2 weeks of Eliquis 2.5 mg twice daily, follow-up with Dr. Tejada in 2 weeks. Patient is being discharged to a [place] [facility] today with normal hemodynamics. Physical Exam Narrative: Pleasant cooperative much more awake and alert today as compared to yesterday No signs of stroke No signs of confusion She is saturating well on room air No active pain Abdomen soft Edema of left leg noted S1, S2 EOMI, PERRLA Urinary Catheter Management: 2-way Urethral: Cath Placed During This Visit: yes, but has since been removed by the nurse Reason for Continuing Indwelling Catheter: Decision to DC Catheter Urinary Catheter Date of Insertion: 03/05/22 Urinary Catheter Time of Insertion: 13:27 Date Urinary Catheter Removed: 03/07/22 Time Urinary Catheter Discontinued: 10:00 Discharge Data Studies Completed and Pending Completed Studies During Hospitalization Category Date Time Status CXRP [XR chest 1V portable 53056] Stat Exams 03/04/22 21:24 Completed XR hip LT 2-3V wo/w pel* 19407 Stat Exams 03/04/22 21:24 Completed Radiology Impressions Chest X-Ray 03/04/22 21:24 IMPRESSION: Cardiomegaly, negative for infiltrate. Hip/Pelvis X-Ray 03/04/22 21:24 IMPRESSION: Mid femoral neck impacted fracture with approximately 1/2 shaft displacement. Laboratory Results WBC 10.7 10^3/uL (4.0-10.0) H 03/07/22 05:16 RBC 2.75 10^6/uL (4.1-5.3) L 03/07/22 05:16 Hgb 8.9 g/dL (11.5-15.3) L 03/07/22 05:16 Hct 27.7 % (37.0-47.0) L 03/07/22 05:16 MCV 100.7 fl (81-99) H 03/07/22 05:16 MCH 32.4 pg (28.0-34.0) 03/07/22 05:16 MCHC 32.1 g/dL (30.0-36.0) D 03/07/22 05:16 RDW 12.8 % (12.1-15.1) 03/07/22 05:16 Plt Count 134 10^3/cmm (130-400) 03/07/22 05:16 MPV 11.1 fL (7.4-10.4) H 03/07/22 05:16 Neut % (Auto) 73.8 % 03/07/22 05:16 Lymph % (Auto) 10.7 % 03/07/22 05:16 Roane % (Auto) 14.8 % 03/07/22 05:16 Eos % (Auto) 0.1 % 03/07/22 05:16 Baso % (Auto) 0.2 % 03/07/22 05:16 Neut # (Auto) 7.89 10^3/uL (1.8-7.7) H 03/07/22 05:16 Lymph # (Auto) 1.1 10^3/uL (0.8-4.8) 03/07/22 05:16 Roane # (Auto) 1.6 10^3/uL (0.2-0.9) H 03/07/22 05:16 Eos # (Auto) 0.0 10^3/uL (0.0-0.8) 03/07/22 05:16 Baso # (Auto) 0.0 10^3/uL (0.0-0.1) 03/07/22 05:16 Nucleated RBC % (auto) 0 % 03/07/22 05:16 Nucleated RBCs # 0.0 /100WBC 03/07/22 05:16 PT 12.60 SECONDS (12.1-14.9) 03/04/22 21:33 INR 0.91 (0.8-1.2) 03/04/22 21:33 APTT 25.1 SECONDS (23.9-36.7) 03/04/22 21:33 Sodium 141 mmol/L (136-145) 03/07/22 05:16 Potassium 3.7 mmol/L (3.5-5.1) 03/07/22 05:16 Chloride 111 mmol/L (98-107) H 03/07/22 05:16 Carbon Dioxide 23 mmol/L (22-29) 03/07/22 05:16 Anion Gap 10.7 (5-19) 03/07/22 05:16 BUN 24 mg/dL (8-23) H 03/07/22 05:16 Creatinine 0.7 mg/dL (0.5-0.9) 03/07/22 05:16 GFR Calculation Not Reportable 03/07/22 05:16 Glucose 139 mg/dL (65-115) H 03/07/22 05:16 Calculated Osmolality 298 mOsm/kg (285-295) H 03/07/22 05:16 Calcium 8.2 mg/dL (8.5-10.5) L 03/07/22 05:16 Magnesium 2.2 mg/dL (1.7-2.3) 03/07/22 05:16 Total Bilirubin 0.3 mg/dL (0.15-1.2) 03/04/22 21:33 AST 16 U/L (0-32) 03/04/22 21:33 ALT 11 U/L (0-33) 03/04/22 21:33 Alkaline Phosphatase 97 IU/L (35-105) 03/04/22 21:33 Troponin T Baseline 36 ng/L (0-10) H 03/06/22 17:21 Troponin T 120 Minute 16.11 ng/L (0-10) H 03/05/22 01:02 Delta Troponin T -2.89 ABS# (0-10) L 03/05/22 01:02 Troponin T Hi Sens 6Hr 19.42 ng/L (0-10) H 03/05/22 04:20 Troponin T Hi Sens 6Hr Delta 0.42 ng/L (0-12) 03/05/22 04:20 Total Protein 6.6 g/dL (6.6-8.7) 03/04/22 21:33 Albumin 4.0 g/dL (3.5-5.2) 03/04/22 21:33 Globulin 2.6 g/dL (1.3-4.6) 03/04/22 21:33 Vitamin B12 370 pg/mL (232-1245) 03/04/22 21:33 Folate 8.2 ng/mL (4.8-37.3) 03/05/22 04:20 TSH 3.97 uIU/mL (0.27-4.20) 03/04/22 21:33 Free T4 1.37 ng/dL (0.82-1.77) 03/04/22 21:33 Vitals Last Vital Signs Temp 97.9 F 03/09/22 08:00 Pulse 75 03/09/22 08:00 Resp 18 03/09/22 08:00 BP 130/73 03/09/22 08:00 Pulse Ox 98 03/09/22 08:00 Discharge Plan Discharge Patient Disposition: Xfer SNF Condition: Stable Prescriptions: New hydrocodone-acetaminophen 5-325 mg Tablet 1 - 2 tab PO Q4H PRN (Reason: Breakthrough Pain) Qty: 15 0RF Eliquis 2.5 mg tablet 2.5 mg PO BID Qty: 30 0RF metoprolol tartrate 50 mg Tablet 50 mg PO BID@0900,2100 Qty: 60 3RF sennosides-docusate sodium [Senna-S] 8.6-50 mg tablet 1 tab-cap PO DAILY Qty: 14 0RF Continued citalopram 10 mg tablet 10 mg PO DAILY@12 0RF trazodone 100 mg tablet 200 mg PO BEDTIME 0RF aripiprazole 2 mg tablet 2 mg PO DAILY@08 0RF atorvastatin 40 mg Tablet 40 mg PO BEDTIME Qty: 60 3RF clopidogrel 75 mg Tablet 75 mg PO DAILY Qty: 20 0RF aspirin 81 mg Tablet,Delayed Release (Dr/Ec) 81 mg PO DAILY Qty: 30 4RF lisinopril 10 mg Tablet 20 mg PO DAILY Qty: 60 4RF Discontinued atenolol 50 mg tablet 50 mg PO BEDTIME 0RF Discharge Orders: Discharge Order (Routine); Ordered 03/09/22 Ordered By: Renita De Luna Referrals: [facility] [Outside] Shar Tejada DO [Physician] - 2 weeks Genaro Munoz [Primary Care Provider] - Discharge Diet: Advance as tolerated Discharge Activity: Resume usual activity Activity Restrictions/Additional Instructions: You are being discharged from the hospital today during which time you have been under the care of Dr Tejada. You had a Left/Right hip fracture. You were treated for this injury with a Iian Arthroplasty which is a partial hip replacement. You may resume you normal diet (including any special diets as directed by your primary doctor) as well as your home medications. You should follow up with you primary doctor if you have any questions regarding medication you took prior to your stay in the hospital. You may take your pain medication as prescribed. After the first few days, take your pain medication as needed. Do not drive or drink alcohol while taking your pain medication. Your injury may increase your risk of developing a blood clot,or DVT, in your arm or leg. This could potentially dislodge and travel to your lungs and become a life threatening condition called apulmonary embolus,or PE. You have been prescribed eliquis to be taken to prevent this. Frequent movement of the legs will also help prevent this from occurring. If you develop any new or worsening cough, chestpain, bloody sputum or shortness of breath, call 911 or go to the EmergencyRoom. Always keep your surgical incision/dressing clean and dry. If you experience increasing pain at your incision site, redness, swelling, increasing discharge, foul odors, or fevers (greater than 100.4), night sweats or chills you should call the office at the above number. If you feel this is an emergency you should be evaluated in the Emergency Department of a nearby hospital. Orthopedic Patient Instructions Summary: Weight Bearing: WBAT Activity: as tolerated. Diet: regular. Wound Care: Keep dressing clean and dry. Change as needed Anticoagulation: Lovenox Pain Medication: Take only as needed. Ice, rest and elevation will be of great benefit. Please plan to follow-up [facility] Dr Tejada in 2 weeks. You will need to call the clinic [phone] to schedule. Do not hesitate to call the office with any questions or concerns. Discharge Attestations Time Spent in Discharge Care*: less than 30 min Quality Metrics Clinical Quality Measures [ No reported AMI, CVA or VTE this stay] Coding Level of Care Code Acute g FW MT note Diagnoses Status post hip hemiarthroplasty Z96.649 Depression F32.A Hypertension I10 Displaced fracture of left femoral neck S72.002A Closed fracture of left hip S72.002A Encounter type: initial encounter
--- NOTE | 2022-03-09 10:59 | PC.SOCIAL ---
IMM Updated Updated pt on IMM. No questions voiced. Provided pt a copy. Initialed, dated, & timed copy in chart.
[2022-03-09 11:08] VITALS: PULSE 75; O2SAT 98
[2022-03-09 11:42] VITALS: BP 148/76; PULSE 92; RESP 16; TEMP 36.4; O2SAT 97
[2022-03-09] MEDS: citalopram 20 mg Tablet 10 MG PO (12:37)
== END 2022-03-09 13:20 | disposition skilled nursing facility (03) | DRG 522 ==
LOC: ER 22:27 → MEDSURG 22:43
PROVIDERS: Internal Medicine; Orthopaedic Surgery; Admitting Provider Internal Medicine; Emergency Provider Emergency Medicine; PCP Family Medicine; Visit Provider Internal Medicine
PROC: 0SRS0JA Replacement of Left Hip Joint, Femoral Surface with Synthetic Substitute, Uncemented, Open Approach (ICD-10-PCS; CPT 27125; principal; 2022-03-05 14:20)
DX: S72.002A Fracture of unspecified part of neck of left femur, initial encounter for closed fracture (principal); I48.91 Unspecified atrial fibrillation; W19.XXXA Unspecified fall, initial encounter; E78.5 Hyperlipidemia, unspecified; Z86.73 Personal history of transient ischemic attack (TIA), and cerebral infarction without residual deficits; F41.9 Anxiety disorder, unspecified; F32.A Depression, unspecified; I10 Essential (primary) hypertension
CPT/HCPCS: 36415; 36430; 43235; 51702; 71045; 73502; 80048; 80053; 81003; 82607; 82728; 82746; 83540; 83550; 83735; 83880; 84100; 84439; 84443; 84484; 85025; 85610; 85730; 86850; 86900; 86920; 87086; 93005; 94664; 96365; 96367; 96372; 96375; 97110; 97161; 97165; 97166; 97530; 97535; 99285; C1776; C9113; J0360; J1100; J1650; J1940; J2270; J2405; J2704; J2710; J3010; J3370; J3480; J3490; J7030; J7040; P9016

== ENCOUNTER 2022-03-10 18:16 | Inpatient (IN) | payer MEDICARE, BC, SELFPAY ==
[2022-03-10] VITALS (9 sets, daily range): BP systolic 134–189; BP diastolic 57–69; PULSE 82–103; RESP 16–20; TEMP 37.1–37.3; O2SAT 93–100; BMI 24.7
--- NOTE | 2022-03-10 18:19 | ED_ITS ---
HPI - General Adult General: Chief complaint: General Medical Stated complaint: LOW HEMOGLOBIN Time Seen by Provider: 03/10/22 18:18 History of Present Illness: Patient is an 87-year-old female with history of recent hip fracture s/p repair on 03/05/2022 presenting to the emergency room with complaints of low hemoglobin. Patient is currently at [facility] getting rehabilitation after left hip surgery performed by Dr. Tejada. Patient had a routine blood work that was done earlier today which showed hemoglobin 5.5. Patient is currently on Eliquis 2.5 mg BID for DVT prophylaxis. Patient has no focal current abdominal pain. Patient denies any recent NSAID use. Patient also denies any history of cirrhosis/melena or hematochezia. Has yet to see Dr. Tejada for her recent left-sided hip fracture. Patient denies any fever or chills, cough, runny nose, sore throat, chest pain, shortness breath, complaints or other complaints at this time. Onset: unknown since 03/07/2022 Duration:ongoing Location: [facility] Severity:moderate Associated symptoms: Deny chest pain, dyspnea, nausea, rash, palpitations or vomiting Review of Systems Const: Denies: fever(s) or chills Eyes: Denies: change in vision ENMT: Denies: mouth pain Card: Denies: chest pain or palpitations Resp: Denies: dyspnea or non-productive cough GI: Denies: abdominal pain, nausea, vomiting or diarrhea : Denies: dysuria Musc: Reports: extremity pain (+L hip pain) Skin/Breast: Denies: rash or new lesions Neuro: Denies: weakness in extremities Psych: Reports: other (Normal mood) Alvino/Lymph: Denies: easy bruising PFSH ED PFSH: Medical History Closed fracture of left hip Depression Depression Depression with anxiety Displaced fracture of left femoral neck HTN (hypertension) Hypertension Insomnia Family History Daughter Psychiatric illness Social History Smoking and tobacco status: never smoked Alcohol intake: never Household members: spouse and children Marital status: Number of children: 2 Physical Exam Const: COMMON NORMALS: alert HENMT: COMMON NORMALS: atraumatic HEAD & SCALP: atraumatic MOUTH: moist mucous membranes not abnormal Eye: COMMON NORMALS: EOMs intact bilaterally and conjunctivae normal CONJUNCTIVA: Yes conjunctivae normal Neck/C-Spine: COMMON NORMALS: full ROM and supple Resp: COMMON NORMALS: normal respiratory effort and clear to auscultation bilaterally AUSCULTATION: clear to auscultation bilaterally Cardio: COMMON NORMALS: regular rate RATE: regular rate GI: COMMON NORMALS: Soft to palpation and non-tender PALPATION: Yes Soft to palpation OTHER: Rectal exam supervised by patient's nurse: hemoocult negative brown stool No focal TTP. NO guarding rebound, guarding, rigidity. No CVA tenderness to percussion. Neg Hunter/Neg McBurney's point tenderness, no suprabupic tenderness to palpation. Extremity: COMMON NORMALS: full ROM (+decreased ROM of the L hip due to pain) OTHER: +L hip staple sites dry/clean/intact Neuro: SENSORIUM/ORIENTATION: Yes alert MOTOR EXAM: No Abnormal motor strength present and Other motor observations present (no focal motor deficits) Psych: COMMON NORMALS: speech normal SPEECH: Yes normal speech MOOD & AFFECT: Yes euthymic mood Course Vital Signs: Vital signs: Vital Signs Temperature 98.7 F 03/10/22 18:30 Pulse Rate 103 H 03/10/22 20:30 Respiratory Rate 18 03/10/22 20:30 Blood Pressure 163/57 03/10/22 20:30 Pulse Oximetry 93 03/10/22 20:30 MDM - General Adult Medical Decision Making 87-year-old female with history of recent hip fixation currently on 2.5 mg Eliquis for DVT prophylaxis presented to the emergency room for evaluation of low hemoglobin. Patient had routine hemoglobin 5.5. Rectal exam did NOT show any melena or Hemoccult positive stool. Hemoglobin initial was 7.5 with repeat 6.6. At present time, it is unclear what exactly patient's hemoglobin is. We will give 2u of pRBC and the patient will be discontinued on Eliquis. Initially I thought patient could be closely followed outpatient for EGD after transfusion. Discussed case Dr. Rosa who recommended the patient stay in the hospital for close observation. I discussed case with Dr. Skelton who will assess patient tomorrow morning to determine whether patient is candidate for EGD. Disposition: admission Lab Data : 03/10/22 19:45 03/10/22 19:00 Laboratory Results WBC 11.2 10^3/uL (4.0-10.0) H 03/10/22 19:45 RBC 2.07 10^6/uL (4.1-5.3) L 03/10/22 19:45 Hgb 6.6 g/dL (11.5-15.3) L 03/10/22 19:45 Hct 20.5 % (37.0-47.0) L* 03/10/22 19:45 MCV 99.0 fl (81-99) 03/10/22 19:45 MCH 31.9 pg (28.0-34.0) 03/10/22 19:45 MCHC 32.2 g/dL (30.0-36.0) 03/10/22 19:45 RDW 13.3 % (12.1-15.1) 03/10/22 19:45 Plt Count 253 10^3/cmm (130-400) 03/10/22 19:45 MPV 9.8 fL (7.4-10.4) 03/10/22 19:45 Neut % (Auto) 71.4 % 03/10/22 19:45 Lymph % (Auto) 12.8 % 03/10/22 19:45 [place] % (Auto) 11.9 % 03/10/22 19:45 Eos % (Auto) 2.3 % 03/10/22 19:45 Baso % (Auto) 0.3 % 03/10/22 19:45 Neut # (Auto) 8.02 10^3/uL (1.8-7.7) H 03/10/22 19:45 Lymph # (Auto) 1.4 10^3/uL (0.8-4.8) 03/10/22 19:45 [place] # (Auto) 1.3 10^3/uL (0.2-0.9) H 03/10/22 19:45 Eos # (Auto) 0.3 10^3/uL (0.0-0.8) 03/10/22 19:45 Baso # (Auto) 0.0 10^3/uL (0.0-0.1) 03/10/22 19:45 Nucleated RBC % (auto) 0.3 % 03/10/22 19:45 Nucleated RBCs # 0.0 /100WBC 03/10/22 19:45 PT 13.20 SECONDS (12.1-14.9) 03/10/22 19:00 INR 0.97 (0.8-1.2) 03/10/22 19:00 APTT 25.9 SECONDS (23.9-36.7) 03/10/22 19:00 Sodium 140 mmol/L (136-145) 03/10/22 19:00 Potassium 3.2 mmol/L (3.5-5.1) L 03/10/22 19:00 Chloride 105 mmol/L (98-107) 03/10/22 19:00 Carbon Dioxide 25 mmol/L (22-29) 03/10/22 19:00 Anion Gap 13.2 (5-19) 03/10/22 19:00 BUN 16 mg/dL (8-23) 03/10/22 19:00 Creatinine 0.7 mg/dL (0.5-0.9) 03/10/22 19:00 GFR Calculation Not Reportable 03/10/22 19:00 Glucose 108 mg/dL (65-115) 03/10/22 19:00 Calculated Osmolality 292 mOsm/kg (285-295) 03/10/22 19:00 Calcium 8.3 mg/dL (8.5-10.5) L 03/10/22 19:00 Discharge Plan Discharge Patient Disposition: Admitted As Inpatient Clinical Impression: Anemia Condition: Stable Coding Level of Care Code ED Help Desk Coordinator for Stephg Fwd Exam Comprehensive
[2022-03-10 19:17] LABS: Basophils % 0.2 %; Eosinophils # 0.3 10^3/uL (0.0-0.8); Eosinophils % 2.6 %; Hematocrit 24.2 % (37.0-47.0); Hemoglobin 7.5 g/dL (11.5-15.3); Lymphocytes % 15.3 %; Mean Corpuscular Hemoglobin 32.1 pg (28.0-34.0); Mean Corpuscular Volume 103.4 fl (81-99); Mean Platelet Volume 9.8 fL (7.4-10.4); Monocytes # 1.5 10^3/uL (0.2-0.9); Monocytes % 11.3 %; Neutrophils # 9.14 10^3/uL (1.8-7.7); Neutrophils % 69.1 %; Nucleated Red Blood Cells # 0.1 /100WBC; Nucleated Red Blood Cells % 0.5 %; Platelet Count 303 10^3/cmm (130-400); Red Blood Count 2.34 10^6/uL (4.1-5.3); Red Cell Distribution Width 13.3 % (12.1-15.1); White Blood Count 13.2 10^3/uL (4.0-10.0)
--- NOTE | 2022-03-10 19:18 | PC.NURSE ---
190 Assumed pt care from Michelle THOMAS
[2022-03-10 19:26] LABS: INR 0.97 (0.8-1.2)
[2022-03-10 19:27] LABS: Partial Thromboplastin Time 25.9 SECONDS (23.9-36.7)
[2022-03-10 19:35] LABS: Anion Gap 13.2 (5-19); Blood Urea Nitrogen 16 mg/dL (8-23); Calcium 8.3 mg/dL (8.5-10.5); Carbon Dioxide 25 mmol/L (22-29); Chloride 105 mmol/L (98-107); Glucose 108 mg/dL (65-115); Osmolality Calculated 292 mOsm/kg (285-295); Potassium 3.2 mmol/L (3.5-5.1); Sodium 140 mmol/L (136-145)
[2022-03-10 19:54] LABS: Basophils % 0.3 %; Eosinophils # 0.3 10^3/uL (0.0-0.8); Eosinophils % 2.3 %; Hemoglobin 6.6 g/dL (11.5-15.3); Lymphocytes # 1.4 10^3/uL (0.8-4.8); Lymphocytes % 12.8 %; Mean Corpuscular HGB Conc 32.2 g/dL (30.0-36.0); Mean Corpuscular Hemoglobin 31.9 pg (28.0-34.0); Mean Platelet Volume 9.8 fL (7.4-10.4); Monocytes # 1.3 10^3/uL (0.2-0.9); Monocytes % 11.9 %; Neutrophils # 8.02 10^3/uL (1.8-7.7); Neutrophils % 71.4 %; Nucleated Red Blood Cells % 0.3 %; Platelet Count 253 10^3/cmm (130-400); Red Blood Count 2.07 10^6/uL (4.1-5.3); Red Cell Distribution Width 13.3 % (12.1-15.1); White Blood Count 11.2 10^3/uL (4.0-10.0)
[2022-03-10 20:05] LABS: Hematocrit 20.5 % (37.0-47.0)
--- NOTE | 2022-03-10 21:10 | ECG_ITS ---
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 Measurements Intervals [place] Rate: 112 P: RI: QRS: 17 QRSD: 118 T: 32 QT: 339 QTc: 463 Interpretive Statements Sinus tachycardia with frequent PACs vs MAT RIGHT BUNDLE BRANCH BLOCK [120+ ms QRS DURATION, UPRIGHT V1, 40+ ms S IN I/aVL/V4/V5/V6] ST and T wave changes, consider anterolateral ischemia Compared to ECG 03/06/2022 16:27:36 No change Electronically Signed On 03-11-2022 9:33:31 CDT by Jed Moreno M.D. [id number]
--- NOTE | 2022-03-10 21:12 | PM.HP ---
Providers/Chief Complaint Primary Care Provider: Genaro Munoz Chief Complaint: LOW HEMOGLOBIN History of Present Illness Isabel Smallwood is a 87 year old female with a past medical history of atrial fibrillation on Eliquis, history of CVA of aspirin and plavix, moderate aortic regurgitation, macroctosis, depression, anxiety, hypertension, recent history left fermoral neck with fall, who presents from long-term do to a hgb 5.5. Patient denies a history of anemia in the past, denies history of blood or boxes, no history of GI bleed, no history of EGD colonoscopy, no history of transfusion. She has no complaints, no nausea, no vomiting, no fevers, no abdominal pain complaints. She was recently here at [facility], found to have A. fib placed on Eliquis. She is already taking aspirin and Plavix for her recent history of CVA back in December Review of Systems Const: Denies: fever(s) Eyes: Denies: change in vision ENMT: Denies: nasal congestion Resp: Denies: dyspnea, productive cough, non-productive cough or wheezing GI: Denies: abdominal pain, nausea or vomiting : Denies: dysuria Musc: Denies: back pain Neuro: Denies: headache(s) Psych: Denies: anxiety Endo: Denies: polyuria Medications/Allergies Home Medications Medication Instructions Recorded Confirmed Last Taken Type aripiprazole 2 mg tablet 2 mg PO DAILY@08 12/18/21 03/05/22 12/17/21 History citalopram 10 mg tablet 10 mg PO DAILY@12 12/18/21 03/05/22 12/17/21 History trazodone 100 mg tablet 200 mg PO BEDTIME 12/18/21 03/05/22 12/17/21 History aspirin 81 mg tablet,delayed 81 mg PO DAILY #30 tab 12/22/21 03/05/22 Unknown Rx release atorvastatin 40 mg tablet 40 mg PO BEDTIME #60 tab 12/22/21 03/05/22 Unknown Rx clopidogrel 75 mg tablet 75 mg PO DAILY #20 tab 12/22/21 03/05/22 Unknown Rx lisinopril 10 mg tablet 20 mg PO DAILY #60 tab 12/22/21 03/05/22 Unknown Rx apixaban 2.5 mg tablet (Eliquis) 2.5 mg PO BID #30 tab 03/09/22 Unknown Rx hydrocodone 5 mg-acetaminophen 325 1 - 2 tab PO Q4H PRN #15 tab 03/09/22 Unknown Rx mg tablet metoprolol tartrate 50 mg tablet 50 mg PO BID@0900,2100 #60 tab 03/09/22 Unknown Rx sennosides 8.6 mg-docusate sodium 1 tab-cap PO DAILY #14 tab 03/09/22 Unknown Rx 50 mg tablet (Senna-S) Allergies Allergy/AdvReac Type Severity Reaction Status Date / Time No Known Allergies Allergy Verified 03/05/22 08:50 PFSH Acute PFSH: Medical History Closed fracture of left hip Depression Depression Depression with anxiety Displaced fracture of left femoral neck HTN (hypertension) Hypertension Insomnia Surgical History History of left hip replacement Family History Daughter Psychiatric illness Social History Smoking and tobacco status: never smoked Alcohol intake: never Household members: spouse and children Marital status: Number of children: 2 Vitals/I&O/Wt Last Vital Signs Temp 98.7 F 03/10/22 18:30 Pulse 103 H 03/10/22 20:30 Resp 18 03/10/22 20:30 BP 163/57 03/10/22 20:30 Pulse Ox 93 03/10/22 20:30 Weight last 48 hrs Weight 63.503 kg Physical Exam Const: COMMON NORMALS: no acute distress and patient oriented x3 HENMT: COMMON NORMALS: normocephalic HEAD & SCALP: normocephalic Eye: COMMON NORMALS: Equal, round and reactive pupils present Neck/C-Spine: COMMON NORMALS: full ROM and no lymphadenopathy Resp: COMMON NORMALS: normal respiratory effort, No retractions, No use of accessory muscles and clear to auscultation bilaterally AUSCULTATION: clear to auscultation bilaterally Cardio: COMMON NORMALS: regular rate, regular rhythm, S1 normal heart sound present and S2 normal heart sound present RATE: regular rate RHYTHM: regular rhythm HEART SOUNDS: S1 normal heart sound present and S2 normal heart sound present GI: COMMON NORMALS: Normal to inspection, nondistended, normoactive bowel sounds present, Soft to palpation, non-tender, No hepatosplenomegaly present, no masses and no bruits PALPATION: Yes Soft to palpation and Yes No hepatosplenomegaly present Extremity: COMMON NORMALS: capillary refill normal, no clubbing, cyanosis or edema and no calf tenderness NARRATIVE EXTREMITY EXAM: 1+ pitting edema Neuro: COMMON NORMALS: patient oriented x3 Psych: COMMON NORMALS: mental status grossly normal and cooperative Data : 03/10/22 19:45 03/10/22 19:00 A&P Assessment and plan (1) Acute GI bleeding: Status: Acute (2) Anemia: Status: Acute (3) Atrial fibrillation: Status: Acute Plan Acute anemia -Concerning for slow GI bleed -Hemoglobin 6.6, will receive 2 units PRBC -Iron, ferritin, B12, folate, Hemoccult stool -Monitor hemoglobin -Monitor hemodynamics -Monitor for bloody or black stools -Emergency room has contacted general surgery, consideration for EGD -N.p.o. -Protonix, Carafate -Hold off on fluids as patient has 1+ pitting edema, will give 1 dose of Lasix with secondary to blood -Full code -SCDs for DVT prophylaxis -History of CVA, hold aspirin, statin, Plavix -History of atrial fibrillation, on examination his heart rates do jump into the 120s, but currently 90s, A. fib, continue Metroprolol 50 twice daily Attestations Medical Necessity Statement*: patient requires hospitalization, for acute anemia, inpatient greater than 2 midnights Coding Level of Care Code Acute Solution Developer for [facility] Fwd Diagnoses Acute GI bleeding K92.2 Anemia D64.9 Atrial fibrillation I48.91
[2022-03-10 21:44] LABS: Troponin(5th) Baseline 55 ng/L (0-10)
[2022-03-10 22:03] LABS: Ferritin 221 ng/mL (15-150); Iron 40 ug/dL (37-145); Magnesium 2.2 mg/dL (1.7-2.3); NT Pro B Type Natriuretic Pept 4987 pg/mL (0-450); Percent Saturation 16.7 % (20-50); Phosphorus 3.1 mg/dL (2.5-4.5); Total Iron Binding Capacity 239 mcg/dl; Unsaturated Iron Binding 199 ug/dL (112-347); Vitamin B12 498 pg/mL (232-1245)
[2022-03-10] MEDS: morphine 4 mg/mL SDV 1 mL 2 MG IVP (22:48)
[2022-03-10] MEDS: ondansetron 2 mg/ML SDV 2 mL 4 MG IVP (22:48)
[2022-03-10] MEDS: pantoprazole 40 mg SDV IVP (22:48)
[2022-03-10] MEDS: FUROsemide 10 mg/mL SDV 4mL 40 MG IVP (22:48)
[2022-03-10 22:49] LABS: Thyroid Stimulating Hormone 3.22 uIU/mL (0.27-4.20)
[2022-03-10] MEDS: sucralfate 1 gm Tablet PO (22:49)
[2022-03-10] MEDS: metoprolol tartrate 50 mg Tablet PO (22:49)
--- NOTE | 2022-03-10 23:03 | ECG_ITS ---
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 Measurements Intervals [place] Rate: 95 P: 76 [place]: 146 QRS: 1 QRSD: 123 T: 29 QT: 406 QTc: 513 Interpretive Statements SINUS RHYTHM WITH FREQUENT SUPRAVENTRICULAR PREMATURE COMPLEXES RIGHT BUNDLE BRANCH BLOCK [120+ ms QRS DURATION, UPRIGHT V1, 40+ ms S IN I/aVL/V4/V5/V6] Anterolateral ST and T wave changes, consider ischemia SEPTAL MYOCARDIAL INFARCTION , OF INDETERMINATE AGE [40+ ms Q WAVE IN V1/V2] Compared to ECG 03/10/2022 21:38:37 Myocardial infarct finding now present Electronically Signed On 03-11-2022 9:35:41 CDT by Jed Moreno M.D. [id number]
[2022-03-11] VITALS (19 sets, daily range): BP systolic 114–188; BP diastolic 66–96; PULSE 64–82; RESP 14–18; TEMP 36.4–37.2; O2SAT 93–98
--- NOTE | 2022-03-11 00:32 | PC.NURSE ---
Blood band place on pt's L wrist in ED on 03/10/2022.
[2022-03-11] MEDS: sodium chloride 0.9% 100 mL Bag 50 ML IV (00:40)
[2022-03-11 01:17] LABS: Troponin 5 2HR 57.01 ng/L (0-10)
[2022-03-11 01:18] LABS: Troponin 5 2HR Delta 2.01 ABS# (0-10)
[2022-03-11 01:33] LABS: Folate Level 6.2 ng/mL (4.8-37.3)
--- NOTE | 2022-03-11 03:03 | ECG_ITS ---
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 Measurements Intervals [place] Rate: 72 P: 80 [place]: 153 QRS: -10 QRSD: 121 T: 30 QT: 455 QTc: 498 Interpretive Statements Sinus rhythm with occasional PACs Right bundle branch block T wave changes anteriorly, consider ischemia ABNORMAL RHYTHM ECG Compared to ECG 03/10/2022 23:36:21 No change Electronically Signed On 03-11-2022 9:37:32 CDT by Jed Moreno M.D. [id number]
[2022-03-11] MEDS: lidocaine 1% 5 ML in potassium chloride premix 100 ML 25 ML IV (04:04)
[2022-03-11] MEDS: metoprolol tartrate 50 mg Tablet PO ×2 (09:24→21:18)
[2022-03-11] MEDS: pantoprazole 40 mg SDV IVP ×2 (09:24→21:19)
[2022-03-11] MEDS: sodium chloride 0.9% (100 ml) 100 ML 150 ML (09:24)
[2022-03-11] MEDS: citalopram 20 mg Tablet 10 MG PO (09:24)
[2022-03-11] MEDS: sucralfate 1 gm Tablet PO ×2 (09:24→21:19)
[2022-03-11] MEDS: lisinopril 20 mg Tablet PO (09:25)
--- NOTE | 2022-03-11 11:04 | PC.CHAP ---
Pastoral Care Encounter/Spiritual Assessment Type of Contact [x] Declined curriculum and instruction specialist visit [] Patient/Family/Request visit [] Outpatient visit [] Follow-up visit [] Physician referral [] Code/Alert [x] Routine visit [] Staff referral [] Actively dying [] Patient sleeping [] Family support [] [] Out of room [x] Palliative care [] [x] Receiving care in room [] Pre-surgical visit [] Trauma [x] Long length of stay [] ICU visit [] Other: Relational/Emotional Strength [] Patient feels connected with others/family/visitors/staff [x] Distress [] Loneliness/isolation [] Abandonment Spirituality of Patient [] Person of Cristiane [] Attends Advent of their Cristiane [] Believes in Prayer [] Reads Bible or Mormon materials [] There are Spiritual issues to be addressed 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 Interventions [] Prayer [] Active listening [] Non-anxious presence [] Spiritual/emotional support [] Crisis/trauma care [] Spiritual counseling [] Bereavement support [] Provided bereavement packet [] Provided Bible/devotional materials [] Provided toy/stuffed animal, coloring book to patient or family member [] Provided Communion [] Anointing/[place] [] Salvation [] Completed spiritual assessment [] Other: Impact on Illness or Injury [] Angry [x] Fearful [] Anxious [] Often cries [] Exhaustion [] Unable to work [] Unable to attend amish [] Unable to walk/stand [] Unable to read [] Unable to drive [] Unable to eat/drink [] Unable to sleep [] Unable to be with family [] Patient intubated [] Other: Summary Declined curriculum and instruction specialist visit Time spent with patient 5 mins
--- NOTE | 2022-03-11 12:09 | PM.PN ---
Subjective Subjective: Admitted overnight. H&P and labs appreciated. On examination patient lying comfortably in bed. Received monitor blood transfusion overnight. Awaiting second unit. Family at bedside. She denies any nausea, vomiting, headache. Denies any abdominal pain. States she does not have bowel movements daily. Does not remember if she had black and tarry bowel movements. Patient AOx3. States at the retirement she is not doing physical therapy and is usually moved around with wheelchair. Vitals/I&O/Wt Last Vital Signs Temp 98.4 F 03/11/22 10:43 Pulse 72 03/11/22 10:43 Resp 17 03/11/22 10:43 BP 142/67 03/11/22 10:43 Pulse Ox 98 03/11/22 10:43 03/10/22 03/11/22 03/11/22 22:59 06:59 14:59 Intake Total 350 / 350 565 / 565 Balance 350 / 350 565 / 565 Weight last 48 hrs Weight 63.503 kg Physical Exam Const: COMMON NORMALS: no acute distress and patient oriented x3 HENMT: COMMON NORMALS: normocephalic HEAD & SCALP: normocephalic Eye: COMMON NORMALS: Equal, round and reactive pupils present PUPIL: Yes Equal, round and reactive pupils present Neck/C-Spine: COMMON NORMALS: full ROM and no lymphadenopathy Resp: COMMON NORMALS: normal respiratory effort, No retractions, No use of accessory muscles and clear to auscultation bilaterally AUSCULTATION: clear to auscultation bilaterally Cardio: COMMON NORMALS: regular rate, regular rhythm, S1 normal heart sound present and S2 normal heart sound present RATE: regular rate RHYTHM: regular rhythm HEART SOUNDS: S1 normal heart sound present and S2 normal heart sound present GI: COMMON NORMALS: Normal to inspection, nondistended, normoactive bowel sounds present, Soft to palpation, non-tender, No hepatosplenomegaly present, no masses and no bruits PALPATION: Yes Soft to palpation and Yes No hepatosplenomegaly present Extremity: COMMON NORMALS: capillary refill normal, no clubbing, cyanosis or edema and no calf tenderness NARRATIVE EXTREMITY EXAM: 1+ pitting edema Neuro: COMMON NORMALS: patient oriented x3 Psych: COMMON NORMALS: mental status grossly normal and cooperative Data : 03/10/22 19:45 03/10/22 19:00 A&P Assessment and plan (1) Acute GI bleeding: Status: Acute (2) Anemia: Status: Acute (3) Atrial fibrillation: Status: Acute Plan Acute anemia: Could be secondary to postoperative equilibrium versus lower GI bleed. Getting second of blood transfusion. Repeat hemoglobin posttransfusion. Monitor H&H daily for now. Surgery has been consulted. Plan for endoscopy in a.m. N.p.o. after midnight. Protonix twice daily, Carafate. History of atrial fibrillation: Continue with home dose of metoprolol. Hold off on Eliquis because of ongoing anemia. Hypertension: Goal blood pressure less than 140/90 mmHg. Restart home dose of lisinopril, metoprolol. Monitor blood pressures. History of CVA: Hold off on aspirin and Plavix for now. Given that patient is on Eliquis she does not need to be on DAPT. Most likely will discharge patient with advised to start on Plavix in 2 weeks from now. Continue with statin. Recent hip fracture/post ORIF: Continue with physical therapy. Full code. Clear liquid diet. SCDs for DVT prophylaxis. Protonix will suffice for PUD prophylaxis Attestations Medical Necessity Statement*: Requires further hospitalization for management of acute anemia in a patient with recent hip fracture, possible GI bleed, atrial fibrillation on Eliquis for anticoagulation and aspirin Plavix for CVA Time Spent in Patient Care: Greater than 35 minutes Coding Level of Care Code Acute Press Hand Supervisor for Loy Ontiveros Diagnoses Acute GI bleeding K92.2 Anemia D64.9 Atrial fibrillation I48.91
[2022-03-11 13:03] LABS: Basophils % 0.3 %; Eosinophils # 0.3 10^3/uL (0.0-0.8); Eosinophils % 2.2 %; Lymphocytes # 1.3 10^3/uL (0.8-4.8); Lymphocytes % 9.8 %; Mean Corpuscular HGB Conc 31.9 g/dL (30.0-36.0); Mean Corpuscular Hemoglobin 29.7 pg (28.0-34.0); Mean Platelet Volume 9.7 fL (7.4-10.4); Monocytes # 1.7 10^3/uL (0.2-0.9); Monocytes % 12.8 %; Neutrophils # 9.61 10^3/uL (1.8-7.7); Neutrophils % 73.5 %; Nucleated Red Blood Cells # 0.1 /100WBC; Nucleated Red Blood Cells % 0.4 %; Platelet Count 262 10^3/cmm (130-400); Red Blood Count 3.53 10^6/uL (4.1-5.3); Red Cell Distribution Width 18.2 % (12.1-15.1); White Blood Count 13.1 10^3/uL (4.0-10.0)
[2022-03-11 13:07] LABS: Hematocrit 32.9 % (37.0-47.0); Hemoglobin 10.5 g/dL (11.5-15.3); Mean Corpuscular Volume 93.2 fl (81-99)
[2022-03-11 13:17] LABS: Troponin 5 6HR 47.25 ng/L (0-10)
[2022-03-11 13:22] LABS: Troponin 5 6HR Delta -7.75 ng/L (0-12)
[2022-03-11 13:26] LABS: Alanine Aminotransferase 8 U/L (0-33); Albumin Level 2.7 g/dL (3.5-5.2); Alkaline Phosphatase 66 IU/L (35-105); Anion Gap 15.7 (5-19); Aspartate Amino Transferase 15 U/L (0-32); Blood Urea Nitrogen 12 mg/dL (8-23); Carbon Dioxide 22 mmol/L (22-29); Chloride 105 mmol/L (98-107); Globulin 2.9 g/dL (1.3-4.6); Glucose 136 mg/dL (65-115); Magnesium 2.1 mg/dL (1.7-2.3); Osmolality Calculated 290 mOsm/kg (285-295); Phosphorus 2.8 mg/dL (2.5-4.5); Potassium 3.7 mmol/L (3.5-5.1); Sodium 139 mmol/L (136-145); Total Bilirubin 2.2 mg/dL (0.15-1.2); Total Protein 5.6 g/dL (6.6-8.7)
[2022-03-11 15:32] LABS: Add Urine Microscopic? NO; Charge for UA Resulting for Rev
[2022-03-11] MEDS: morphine 4 mg/mL SDV 1 mL 2 MG IVP (15:45)
[2022-03-11 16:16] LABS: Bilirubin Urine Neg (Negative); Blood Urine Neg (Negative); Glucose Urine UA Norm (Normal); Ketones Urine Negative (Negative); Leukocyte Esterase Urine Negative (Negative); Nitrate Urine Negative (Negative); Protein Urine Neg (Negative); Urine Appearance Clear (CLEAR); Urine Color Yellow (Yellow); Urobilinogen Urine Norm (Negative); pH Urine 6 (5-7)
[2022-03-11] MEDS: magnesium hydroxide 30 mL UDC PO (17:21)
--- NOTE | 2022-03-11 17:46 | PM.CONSULT ---
Providers/Reason For Consult Consulting Physician/Specialty*: Dr. Rusty Skelton, DO/ General Surgery Reason for Consult*: Anemia Attending Physician: Fidencio Hood MD Primary Care Provider: Genaro Munoz History of Present Illness History of Present Illness Isabel Smallwood is a 87 year old female who presents the hospital with weakness and anemia. She denies any other symptoms. She denies abdominal pain. She denies hematochezia, melena or hematemesis. Denies nausea or vomiting. Surgery was consulted for possible EGD. Review of Systems General: Reports: 10 or more systems reviewed and unremarkable except in HPI and below Medications/Allergies Home Medications Medication Instructions Recorded Confirmed Last Taken Type aripiprazole 2 mg tablet 2 mg PO DAILY@08 12/18/21 03/11/22 12/17/21 History citalopram 10 mg tablet 10 mg PO DAILY@12 12/18/21 03/11/22 12/17/21 History trazodone 100 mg tablet 200 mg PO BEDTIME 12/18/21 03/11/22 12/17/21 History aspirin 81 mg tablet,delayed 81 mg PO DAILY #30 tab 12/22/21 03/11/22 Unknown Rx release atorvastatin 40 mg tablet 40 mg PO BEDTIME #60 tab 12/22/21 03/11/22 Unknown Rx clopidogrel 75 mg tablet 75 mg PO DAILY #20 tab 12/22/21 03/11/22 Unknown Rx lisinopril 10 mg tablet 20 mg PO DAILY #60 tab 12/22/21 03/11/22 Unknown Rx apixaban 2.5 mg tablet (Eliquis) 2.5 mg PO BID #30 tab 03/09/22 03/11/22 Unknown Rx hydrocodone 5 mg-acetaminophen 325 1 - 2 tab PO Q4H PRN #15 tab 03/09/22 03/11/22 Unknown Rx mg tablet metoprolol tartrate 50 mg tablet 50 mg PO BID@0900,2100 #60 tab 03/09/22 03/11/22 Unknown Rx sennosides 8.6 mg-docusate sodium 1 tab-cap PO DAILY #14 tab 03/09/22 03/11/22 Unknown Rx 50 mg tablet (Senna-S) Allergies Allergy/AdvReac Type Severity Reaction Status Date / Time No Known Allergies Allergy Verified 03/05/22 08:50 Current Medications Generic Name Dose Route Start Last Admin Trade Name Freq PRN Reason Stop Dose Admin Citalopram Hydrobromide 10 mg 03/11/22 09:00 03/11/22 09:24 Citalopram 20 Mg Tablet PO 10 mg DAILY MEREDITH Administration Lisinopril 20 mg 03/11/22 09:00 03/11/22 09:25 Lisinopril 20 Mg Tablet PO 20 mg DAILY MEREDITH Administration Magnesium Hydroxide 30 ml 03/11/22 13:52 03/11/22 17:21 Magnesium Hydroxide 30 Ml Udc PO 30 ml BID PRN Administration CONSTIPATION Metoprolol Tartrate 50 mg 03/10/22 22:11 03/11/22 09:24 Metoprolol Tartrate 50 Mg Tablet PO 50 mg BID@0900,2100 MEREDITH Administration Morphine Sulfate 2 mg 03/10/22 22:11 03/11/22 15:45 Morphine 4 Mg/Ml Sdv 1 Ml IVP 2 mg Q4H PRN Administration SEVERE PAIN Ondansetron HCl 4 mg 03/10/22 22:11 03/10/22 22:48 Ondansetron 2 Mg/Ml Sdv 2 Ml IVP 4 mg Q8H PRN Administration vomiting, or N/V if npo Pantoprazole Sodium 40 mg 03/10/22 22:11 03/11/22 09:24 Pantoprazole 40 Mg Sdv IVP 40 mg Q12H MEREDITH Administration Sucralfate 1 gm 03/10/22 22:30 03/11/22 09:24 Sucralfate 1 Gm Tablet PO 1 gm Q12H MEREDITH Administration PFSH Acute PFSH: Medical History Closed fracture of left hip Depression Depression Depression with anxiety Displaced fracture of left femoral neck HTN (hypertension) Hypertension Insomnia Surgical History History of left hip replacement Family History Daughter Psychiatric illness Social History Smoking and tobacco status: never smoked Alcohol intake: never Household members: spouse and children Marital status: Number of children: 2 Vitals/I&O/Wt Last Vital Signs Temp 98.9 F 03/11/22 15:30 Pulse 64 06/02/22 15:30 Resp 15 03/11/22 15:45 BP 147/83 03/11/22 15:30 Pulse Ox 97 03/11/22 15:30 03/11/22 03/11/22 03/11/22 06:59 14:59 22:59 Intake Total 350 / 350 1045 / 1045 Output Total 300 / 300 Balance 350 / 350 745 / 745 Weight last 48 hrs Weight 140 lb Physical Exam Narrative: General : Patient is well developed , no acute distress, oriented x3 Head : Normal cephalic, a-traumatic. Ears : Pinnae and external canal are normal. Hearing is normal. Eyes : PERRLA, Sclera and injection are normal. No conjunctival discharge. Nose : Mucous membranes are without erythema. Throat : buccal mucosa is normal, gums are without significant recession or hypertrophy. Lungs : Equal chest rise bilaterally, no use of accessory muscles, trachea is midline. Cor : Rate and rhythm are normal. Abdomen : Soft, ND, NT, no g/r/m Extremities : No edema, no cyanosis or clubbing, dorsalis pedis pulses are present bilaterally, non-tender to palpation of calves. Upper extremities are normal bilaterally. Back : non-tender to palpation, no CVA tenderness. Neuro : CN II - XII intact, Upper and lower extremities have equal and full strength Data : 03/11/22 12:51 03/11/22 12:51 A&P Assessment and plan (1) Anemia: Status: Acute (2) Atrial fibrillation: Status: Acute Plan Holding Eliquis. Tomorrow will be 48 hours that she has been off of her Eliquis. We will perform EGD tomorrow. The risks and benefits of the procedure, including bleeding, infection, intestinal perforation requiring surgery, missed lesion, or explained to the patient. He is understanding of the risks and wishes to proceed. Coding Level of Care Code Acute Inspector Balance Bridge for Chg Fwd Diagnoses Anemia D64.9 Atrial fibrillation I48.91
[2022-03-11] MEDS: trazodone 100 mg Tablet 200 MG PO (21:18)
[2022-03-11] MEDS: atorvastatin 40 mg Tablet PO (21:19)
[2022-03-12] VITALS (13 sets, daily range): BP systolic 92–155; BP diastolic 56–99; PULSE 60–119; RESP 14–16; TEMP 36.3–37.1; O2SAT 93–99
[2022-03-12 05:17] LABS: Basophils % 0.2 %; Eosinophils # 0.5 10^3/uL (0.0-0.8); Eosinophils % 3.7 %; Hematocrit 32.8 % (37.0-47.0); Hemoglobin 10.8 g/dL (11.5-15.3); Lymphocytes # 1.9 10^3/uL (0.8-4.8); Lymphocytes % 15.3 %; Mean Corpuscular HGB Conc 32.9 g/dL (30.0-36.0); Mean Corpuscular Hemoglobin 30.1 pg (28.0-34.0); Mean Corpuscular Volume 91.4 fl (81-99); Mean Platelet Volume 10.1 fL (7.4-10.4); Monocytes # 1.4 10^3/uL (0.2-0.9); Monocytes % 11.4 %; Neutrophils # 8.32 10^3/uL (1.8-7.7); Neutrophils % 68.1 %; Nucleated Red Blood Cells % 0 %; Platelet Count 255 10^3/cmm (130-400); Red Blood Count 3.59 10^6/uL (4.1-5.3); Red Cell Distribution Width 18.3 % (12.1-15.1); White Blood Count 12.2 10^3/uL (4.0-10.0)
--- NOTE | 2022-03-12 06:37 | W.PM.OPSUD ---
Surgery/Procedure H&P Update DATE OF PROCEDURE: March 12, 2022 DATE H&P PERFORMED: 03/10/22 CHANGES TO PREVIOUS DOCUMENTATION: none PREOP DIAGNOSIS: anemia PRIMARY INDICATION FOR PROCEDURE: anemia PLANNED PROCEDURE: Operation Date: 03/12/22 07:30 Proposed Procedures p EGD(Not Applicable) - Rusty Skelton DO
[2022-03-12] MEDS: sodium chloride 0.9% 1,000 ML 30 ML IV (06:49)
--- NOTE | 2022-03-12 07:13 | ANES.PREANE2 ---
Pre-Anesthetic Assessment Height/Weight: Height 1.6 m Weight 63.503 kg Temp Pulse Resp BP Pulse Ox 97.7 F 67 16 155/96 95 03/12/22 06:44 03/12/22 06:44 03/12/22 06:44 03/12/22 06:44 03/12/22 06:44 Preop Diagnosis: anemia Operation Date: 03/12/22 07:30 Proposed Procedures p EGD(Not Applicable) - Rusty Skelton DO Familial anesthetic complications: Per patient and daughter no hx of complications Was Beta Kaity taken within 24 hours: Yes Was Clonidine taken within 24 hours: N/A Last intake: Intake Last Liquid Date 03/11/22 Last Liquid Time 19:00 Last Solid Date 03/10/22 Social No alcohol and No tobacco Exam oriented x 3, clear to auscultation bilaterally and regular rate & rhythm Oriented to self, hospital. Not oriented to year, date, current medical state. Airway Submandibular: within normal limits Cervical ROM: within normal limits Mallampati: Class II Dentition: partials Comments: Comments: Upper dentures Pulmonary None reported CV/HEM Atrial Fibrillation, Anemia and Arrythmia (RBB) On anticoagulation TTE 12/2021 CONCLUSIONS ?LV systolic function is normal with EF of 55-60% ?Mild mitral regurgitation ?Mild to moderate aortic regurgitation ?Mild tricuspid regurgitation ?No comparison studies are available None reported Hepatic Hypoalbumia GI Gastroesophageal Reflux Disease Metabolic None reported Musc/skel None reported Neuropsych Anxiety and Depression Anesthetic Plan ASA status: 3 (87 year old female with AMS, afib on anticoagulation with acute anemia ) Anesthesia: Anesthesia Evaluation and General Other: I discussed with patient and her daughter (over the phone) I discussed with the patient risks, goals, and benefits of MAC and general anesthesia. We discussed spectrum of MAC anesthesia including conversion to general as well as possibility of recall of intraoperative stimuli including discomfort/pain. Patient and daughter agrees to proceed with MAC. Phone consent obtained from daughter with witness (Josie THOMAS). Risk of > 500 ml blood loss (7ml/kg in children): No Medications/Allergies Home Medications Medication Instructions Recorded Confirmed Last Taken Type aripiprazole 2 mg tablet 2 mg PO DAILY@08 12/18/21 03/11/22 12/17/21 History citalopram 10 mg tablet 10 mg PO DAILY@12 12/18/21 03/11/22 12/17/21 History trazodone 100 mg tablet 200 mg PO BEDTIME 12/18/21 03/11/22 12/17/21 History aspirin 81 mg tablet,delayed 81 mg PO DAILY #30 tab 12/22/21 03/11/22 Unknown Rx release atorvastatin 40 mg tablet 40 mg PO BEDTIME #60 tab 12/22/21 03/11/22 Unknown Rx clopidogrel 75 mg tablet 75 mg PO DAILY #20 tab 12/22/21 03/11/22 Unknown Rx lisinopril 10 mg tablet 20 mg PO DAILY #60 tab 12/22/21 03/11/22 Unknown Rx apixaban 2.5 mg tablet (Eliquis) 2.5 mg PO BID #30 tab 03/09/22 03/11/22 Unknown Rx hydrocodone 5 mg-acetaminophen 325 1 - 2 tab PO Q4H PRN #15 tab 03/09/22 03/11/22 Unknown Rx mg tablet metoprolol tartrate 50 mg tablet 50 mg PO BID@0900,2100 #60 tab 03/09/22 03/11/22 Unknown Rx sennosides 8.6 mg-docusate sodium 1 tab-cap PO DAILY #14 tab 03/09/22 03/11/22 Unknown Rx 50 mg tablet (Senna-S) Allergies Allergy/AdvReac Type Severity Reaction Status Date / Time No Known Allergies Allergy Verified 03/05/22 08:50 Current Medications Generic Name Dose Route Start Last Admin Trade Name Freq PRN Reason Stop Dose Admin Atorvastatin Calcium 40 mg 03/11/22 21:00 03/11/22 21:19 Atorvastatin 40 Mg Tablet PO 40 mg BEDTIME MEREDITH Administration Citalopram Hydrobromide 10 mg 03/11/22 09:00 03/11/22 09:24 Citalopram 20 Mg Tablet PO 10 mg DAILY MEREDITH Administration Sodium Chloride 1,000 mls @ 30 mls/hr 03/12/22 06:45 03/12/22 06:49 Sodium Chloride 0.9% IV 03/13/22 06:44 30 mls/hr .Q24H MEREDITH Administration Lisinopril 20 mg 03/11/22 09:00 03/11/22 09:25 Lisinopril 20 Mg Tablet PO 20 mg DAILY MEREDITH Administration Magnesium Hydroxide 30 ml 03/11/22 13:52 03/11/22 17:21 Magnesium Hydroxide 30 Ml Udc PO 30 ml BID PRN Administration CONSTIPATION Metoprolol Tartrate 50 mg 03/10/22 22:11 03/11/22 21:18 Metoprolol Tartrate 50 Mg Tablet PO 50 mg BID@0900,2100 MEREDITH Administration Morphine Sulfate 2 mg 03/10/22 22:11 03/11/22 15:45 Morphine 4 Mg/Ml Sdv 1 Ml IVP 2 mg Q4H PRN Administration SEVERE PAIN Ondansetron HCl 4 mg 03/10/22 22:11 03/10/22 22:48 Ondansetron 2 Mg/Ml Sdv 2 Ml IVP 4 mg Q8H PRN Administration vomiting, or N/V if npo Pantoprazole Sodium 40 mg 03/10/22 22:11 03/11/22 21:19 Pantoprazole 40 Mg Sdv IVP 40 mg Q12H MEREDITH Administration Sucralfate 1 gm 03/10/22 22:30 03/11/22 21:19 Sucralfate 1 Gm Tablet PO 1 gm Q12H MEREDITH Administration Trazodone HCl 200 mg 03/11/22 21:00 03/11/22 21:18 Trazodone 100 Mg Tablet PO 200 mg BEDTIME MEREDITH Administration PFSH Anesthesia Medical History Closed fracture of left hip Depression Depression Depression with anxiety Displaced fracture of left femoral neck HTN (hypertension) Hypertension Insomnia Surgical History History of left hip replacement Family History Daughter Psychiatric illness Social History Smoking and tobacco status: never smoked Alcohol intake: never Household members: spouse and children Marital status: Number of children: 2 Data Anesthesia : 03/12/22 04:57 03/11/22 12:51 Short CBC 03/10/22 03/10/22 03/11/22 Range/Units 19:00 19:45 12:51 WBC 13.2 H 11.2 H 13.1 H (4.0-10.0) 10^3/uL Hgb 7.5 L 6.6 L 10.5 L D (11.5-15.3) g/dL Hct 24.2 L 20.5 L* 32.9 L D (37.0-47.0) % MCV 103.4 H 99.0 93.2 D (81-99) fl Plt Count 303 253 262 (130-400) 10^3/cmm Neut % (Auto) 69.1 71.4 73.5 % Neut # (Auto) 9.14 H 8.02 H 9.61 H (1.8-7.7) 10^3/uL 03/12/22 Range/Units 04:57 WBC 12.2 H (4.0-10.0) 10^3/uL Hgb 10.8 L (11.5-15.3) g/dL Hct 32.8 L (37.0-47.0) % MCV 91.4 (81-99) fl Plt Count 255 (130-400) 10^3/cmm Neut % (Auto) 68.1 % Neut # (Auto) 8.32 H (1.8-7.7) 10^3/uL BMP 03/10/22 03/11/22 03/12/22 19:00 12:51 04:57 Sodium 140 139 Cancelled Potassium 3.2 L 3.7 Cancelled Chloride 105 105 Cancelled Carbon Dioxide 25 22 Cancelled BUN 16 12 Cancelled Creatinine 0.7 0.6 Cancelled Glucose 108 136 H Cancelled Calcium 8.3 L 8.0 L Cancelled Cardiac Enzymes 03/10/22 03/10/22 03/10/22 Range/Units 00:32 21:10 21:10 Troponin T Baseline 55 H (0-10) ng/L Troponin T 120 Minute 57.01 H (0-10) ng/L Delta Troponin T 2.01 (0-10) ABS# Troponin T Hi Sens 6Hr (0-10) ng/L Troponin T Hi Sens 6Hr Delta (0-12) ng/L NT-Pro-B Natriuret Pep 4987 H (0-450) pg/mL 03/11/22 Range/Units 12:51 Troponin T Baseline (0-10) ng/L Troponin T 120 Minute (0-10) ng/L Delta Troponin T (0-10) ABS# Troponin T Hi Sens 6Hr 47.25 H (0-10) ng/L Troponin T Hi Sens 6Hr Delta -7.75 L (0-12) ng/L NT-Pro-B Natriuret Pep (0-450) pg/mL Liver Function 03/11/22 03/12/22 Range/Units 12:51 04:57 Total Bilirubin 2.2 H Cancelled (0.15-1.2) mg/dL AST 15 Cancelled (0-32) U/L ALT 8 Cancelled (0-33) U/L Alkaline Phosphatase 66 Cancelled (35-105) IU/L Albumin 2.7 L Cancelled (3.5-5.2) g/dL Urine 03/10/22 Range/Units 15:25 Urine Color Yellow (Yellow) Urine Appearance Clear (CLEAR) Urine pH 6 (5-7) Ur Specific [place] 1.010 (1.005-1.030) Urine Protein Neg (Negative) Urine Glucose (UA) Norm (Normal) Urine Ketones Negative (Negative) Urine Nitrate Negative (Negative) Urine Bilirubin Neg (Negative) Ur Leukocyte Esterase Negative (Negative) Blood Bank 03/10/22 19:00 Blood Type O Positive Rho(D) Type Positive Antibody Screen Negative [place] 03/10/22 19:00 PT 13.20 INR 0.97 APTT 25.9 Cardiac Studies: Echocardiogram 12/19/21
--- NOTE | 2022-03-12 08:01 | ANE.PACU2 ---
Documented by User: Nile Salazar CRNA 03/12/22 08:02 Inpatient post-anesthesia follow up: Airway intact: Yes Vital signs: Temperature 97.7 F Pulse Rate 67 Respiratory Rate 16 Blood Pressure 155/96 Pulse Oximetry 95 Oxygen Delivery Me thod Room Air Oxygen Flow Rate Fraction of Inspir ed Oxygen Hydration adequate: Yes Nausea and vomiting: No Pain level: 1 Mental status: Baseline
[2022-03-12] MEDS: metoprolol tartrate 50 mg Tablet PO (11:12)
--- NOTE | 2022-03-12 11:15 | PM.DCS ---
Discharge Providers Date of Admission: 03/10/22 20:52 Date of Discharge: March 12, 2022 Attending Provider at Admission: Wong Rosa MD Attending Provider at Discharge: Fidencio Hood MD Consults: Surgery Dr. Skelton Primary Care Provider: Genaro Munoz Diagnoses at Discharge Discharge Diagnosis (1) Anemia: Status: Acute (2) Atrial fibrillation: Status: Acute Reason for Visit Reason for Visit: LOW HEMOGLOBIN Brief History: History as per HPI: Isabel Smallwood is a 87 year old female with a past medical history of atrial fibrillation on Eliquis, history of CVA of aspirin and plavix, moderate aortic regurgitation, macroctosis, depression, anxiety, hypertension, recent history left fermoral neck with fall, who presents from long term do to a hgb 5.5.? Patient denies a history of anemia in the past, denies history of blood or boxes, no history of GI bleed, no history of EGD colonoscopy, no history of transfusion.? She has no complaints, no nausea, no vomiting, no fevers, no abdominal pain complaints.? She was recently here at [facility], found to have A. fib placed on Eliquis.? She is already taking aspirin and Plavix for her recent history of CVA back in December. Hospital Course Hospital Course Patient went to the hospital further evaluation and management of acute anemia. She required units of blood transfusion. Her hemoglobin responded appropriately and has remained stable. Because of concerns for possible GI bleed surgery was consulted and she underwent EGD on 03/12 which was negative for any site of infection. Is believed her hemoglobin drop is most likely secondary to recent surgery for fixation of hip. Because patient did not have any active site of bleeding in EGD she is advised to continue taking her Plavix and Eliquis. On review of chart it seems patient is on DAPT and Eliquis for A. fib and CVA. Given her age, anemia most likely patient should be on Eliquis and Plavix. Aspirin will be discontinued. She is been discharged hemodynamically stable condition on adjusted medications. She is to recheck hemoglobin in 1 week. She is advised to continue physical therapy for post-ORIF as before. Physical Exam Const: COMMON NORMALS: no acute distress and patient oriented x3 HENMT: COMMON NORMALS: normocephalic HEAD & SCALP: normocephalic Eye: COMMON NORMALS: Equal, round and reactive pupils present PUPIL: Yes Equal, round and reactive pupils present Neck/C-Spine: COMMON NORMALS: full ROM and no lymphadenopathy Resp: COMMON NORMALS: normal respiratory effort, No retractions, No use of accessory muscles and clear to auscultation bilaterally AUSCULTATION: clear to auscultation bilaterally Cardio: COMMON NORMALS: regular rate, regular rhythm, S1 normal heart sound present and S2 normal heart sound present RATE: regular rate RHYTHM: regular rhythm HEART SOUNDS: S1 normal heart sound present and S2 normal heart sound present GI: COMMON NORMALS: Normal to inspection, nondistended, normoactive bowel sounds present, Soft to palpation, non-tender, No hepatosplenomegaly present, no masses and no bruits PALPATION: Yes Soft to palpation and Yes No hepatosplenomegaly present Extremity: COMMON NORMALS: capillary refill normal, no clubbing, cyanosis or edema and no calf tenderness NARRATIVE EXTREMITY EXAM: 1+ pitting edema Neuro: COMMON NORMALS: patient oriented x3 Psych: COMMON NORMALS: mental status grossly normal and cooperative Discharge Data Studies Completed and Pending Pending at discharge Category Date Time Status Complete Blood Count w/Auto AM LABS Lab 03/13/22 04:00 Ordered Comprehensive Metabolic Panel AM LABS Lab 03/13/22 04:00 Ordered Comprehensive Metabolic Panel Routine Lab 03/12/22 05:36 Ordered Magnesium AM LABS Lab 03/13/22 04:00 Ordered Magnesium Routine Lab 03/12/22 05:36 Ordered Occult Blood Stool [Immunochemical Fecal OCB] Routine Lab 03/10/22 22:11 Uncollected Phosphorus AM LABS Lab 03/13/22 04:00 Ordered Phosphorus Routine Lab 03/12/22 05:36 Ordered Urine Culture Stat Lab 03/10/22 15:25 Results Laboratory Results WBC 12.2 10^3/uL (4.0-10.0) H 03/12/22 04:57 RBC 3.59 10^6/uL (4.1-5.3) L 03/12/22 04:57 Hgb 10.8 g/dL (11.5-15.3) L 03/12/22 04:57 Hct 32.8 % (37.0-47.0) L 03/12/22 04:57 MCV 91.4 fl (81-99) 03/12/22 04:57 MCH 30.1 pg (28.0-34.0) 03/12/22 04:57 MCHC 32.9 g/dL (30.0-36.0) 03/12/22 04:57 RDW 18.3 % (12.1-15.1) H 03/12/22 04:57 Plt Count 255 10^3/cmm (130-400) 03/12/22 04:57 MPV 10.1 fL (7.4-10.4) 03/12/22 04:57 Neut % (Auto) 68.1 % 03/12/22 04:57 Lymph % (Auto) 15.3 % 03/12/22 04:57 [place] % (Auto) 11.4 % 03/12/22 04:57 Eos % (Auto) 3.7 % 03/12/22 04:57 Baso % (Auto) 0.2 % 03/12/22 04:57 Neut # (Auto) 8.32 10^3/uL (1.8-7.7) H 03/12/22 04:57 Lymph # (Auto) 1.9 10^3/uL (0.8-4.8) 03/12/22 04:57 [place] # (Auto) 1.4 10^3/uL (0.2-0.9) H 03/12/22 04:57 Eos # (Auto) 0.5 10^3/uL (0.0-0.8) 03/12/22 04:57 Baso # (Auto) 0.0 10^3/uL (0.0-0.1) 03/12/22 04:57 Nucleated RBC % (auto) 0 % 03/12/22 04:57 Nucleated RBCs # 0.0 /100WBC 03/12/22 04:57 PT 13.20 SECONDS (12.1-14.9) 03/10/22 19:00 INR 0.97 (0.8-1.2) 03/10/22 19:00 APTT 25.9 SECONDS (23.9-36.7) 03/10/22 19:00 Sodium Cancelled 03/12/22 04:57 Potassium Cancelled 03/12/22 04:57 Chloride Cancelled 03/12/22 04:57 Carbon Dioxide Cancelled 03/12/22 04:57 Anion Gap Cancelled 03/12/22 04:57 BUN Cancelled 03/12/22 04:57 Creatinine Cancelled 03/12/22 04:57 GFR Calculation Cancelled 03/12/22 04:57 Glucose Cancelled 03/12/22 04:57 Calculated Osmolality Cancelled 03/12/22 04:57 Calcium Cancelled 03/12/22 04:57 Phosphorus Cancelled 03/12/22 04:57 Magnesium Cancelled 03/12/22 04:57 Iron 40 ug/dL (37-145) 03/10/22 21:10 TIBC 239 mcg/dl 03/10/22 21:10 % Saturation 16.7 % (20-50) L 03/10/22 21:10 Unsat Iron Binding 199 ug/dL (112-347) 03/10/22 21:10 Ferritin 221 ng/mL (15-150) H 03/10/22 21:10 Total Bilirubin Cancelled 03/12/22 04:57 AST Cancelled 03/12/22 04:57 ALT Cancelled 03/12/22 04:57 Alkaline Phosphatase Cancelled 03/12/22 04:57 Troponin T Baseline 55 ng/L (0-10) H 03/10/22 21:10 Troponin T 120 Minute 57.01 ng/L (0-10) H 03/10/22 00:32 Delta Troponin T 2.01 ABS# (0-10) 03/10/22 00:32 Troponin T Hi Sens 6Hr 47.25 ng/L (0-10) H 03/11/22 12:51 Troponin T Hi Sens 6Hr Delta -7.75 ng/L (0-12) L 03/11/22 12:51 NT-Pro-B Natriuret Pep 4987 pg/mL (0-450) H 03/10/22 21:10 Total Protein Cancelled 03/12/22 04:57 Albumin Cancelled 03/12/22 04:57 Globulin Cancelled 03/12/22 04:57 Vitamin B12 498 pg/mL (232-1245) 03/10/22 21:10 Folate 6.2 ng/mL (4.8-37.3) 03/10/22 00:32 TSH 3.22 uIU/mL (0.27-4.20) 03/10/22 19:00 Urine Color Yellow (Yellow) 03/10/22 15:25 Urine Appearance Clear (CLEAR) 03/10/22 15:25 Urine pH 6 (5-7) 03/10/22 15:25 Ur Specific [place] 1.010 (1.005-1.030) 03/10/22 15:25 Urine Protein Neg (Negative) 03/10/22 15:25 Urine Glucose (UA) Norm (Normal) 03/10/22 15:25 Urine Ketones Negative (Negative) 03/10/22 15:25 Urine Blood Neg (Negative) 03/10/22 15:25 Urine Nitrate Negative (Negative) 03/10/22 15:25 Urine Bilirubin Neg (Negative) 03/10/22 15:25 Urine Urobilinogen Norm mg/dL (Negative) 03/10/22 15:25 Ur Leukocyte Esterase Negative (Negative) 03/10/22 15:25 Blood Type O Positive 03/10/22 19:00 Rho(D) Type Positive 03/10/22 19:00 Antibody Screen Negative 03/10/22 19:00 Crossmatch See Detail 03/10/22 19:00 Vitals Last Vital Signs Temp 98.6 F 03/12/22 09:55 Pulse 119 H 03/12/22 09:55 Resp 16 03/12/22 09:55 BP 133/76 03/12/22 09:55 Pulse Ox 94 03/12/22 10:17 Discharge Plan Discharge Patient Disposition: Xfer SNF Condition: Stable Prescriptions: New famotidine [Pepcid] 20 mg tablet 20 mg PO BID 42 Days Qty: 84 0RF Continued citalopram 10 mg tablet 10 mg PO DAILY@12 0RF trazodone 100 mg tablet 200 mg PO BEDTIME 0RF aripiprazole 2 mg tablet 2 mg PO DAILY@08 0RF atorvastatin 40 mg Tablet 40 mg PO BEDTIME Qty: 60 3RF clopidogrel 75 mg Tablet 75 mg PO DAILY Qty: 20 0RF lisinopril 10 mg Tablet 20 mg PO DAILY Qty: 60 4RF metoprolol tartrate 50 mg Tablet 50 mg PO BID@0900,2100 Qty: 60 3RF Eliquis 2.5 mg tablet 2.5 mg PO BID Qty: 30 0RF sennosides-docusate sodium [Senna-S] 8.6-50 mg tablet 1 tab-cap PO DAILY Qty: 14 0RF Changed hydrocodone-acetaminophen 5-325 mg Tablet 1 tab PO Q4H PRN (Reason: Breakthrough Pain) Qty: 15 0RF Discontinued aspirin 81 mg Tablet,Delayed Release (Dr/Ec) 81 mg PO DAILY Qty: 30 4RF Discharge Orders: Discharge Order (Routine); Ordered 03/12/22 Ordered By: Fidencio Hood Referrals: Genaro Munoz [Primary Care Provider] - 2 weeks Discharge Diet: Regular Discharge Activity: Resume usual activity and Increase activity as tolerated Patient Instructions: GI Discharge Instructions, Opioid Safety Activity Restrictions/Additional Instructions: Stop Aspirin. C/w Plavix, eliquis. Famotidine 20 mg twice daily. Repeat CBC in 1 week. F/w with PCP in 2 weeks Discharge Attestations Time Spent in Discharge Care*: greater than 30 min Specific Discharge Activities: educating patient, discussing with pcp/other providers, discussing with binder caser/social workers/dc planners, documenting/other paperwork and evaluating patient/reviewing data Status at Discharge: Cognitive status at discharge: mildly impaired cognition, Behavioral status at discharge: cooperative, Functional status at discharge: uses cane/walker, Overall status at discharge: patient is progressing back to baseline Quality Metrics Clinical Quality Measures [ No reported AMI, CVA or VTE this stay] Coding Level of Care Code Acute Chg FW DC note Diagnoses Anemia D64.9 Atrial fibrillation I48.91
--- NOTE | 2022-03-12 12:18 | PC.NURSE ---
POLI Barnes, received report at [facility].
== END 2022-03-12 14:34 | disposition skilled nursing facility (03) | DRG 812 ==
LOC: ER 19:23 → MEDSURG 22:36
PROVIDERS: Surgery; Admitting Provider Family Medicine; Emergency Provider Emergency Medicine; PCP Family Medicine; Visit Provider Student in an Organized Health Care Education/Training Program
PROC: 0DJ08ZZ Inspection of Upper Intestinal Tract, Via Natural or Artificial Opening Endoscopic (ICD-10-PCS; CPT 43235; principal; 2022-03-12 07:30)
DX: D62 Acute posthemorrhagic anemia (principal); F41.8 Other specified anxiety disorders; I10 Essential (primary) hypertension; I48.91 Unspecified atrial fibrillation; Z86.73 Personal history of transient ischemic attack (TIA), and cerebral infarction without residual deficits; I35.1 Nonrheumatic aortic (valve) insufficiency; Z96.642 Presence of left artificial hip joint; Z79.02 Long term (current) use of antithrombotics/antiplatelets; Z79.01 Long term (current) use of anticoagulants
CPT/HCPCS: 36415; 36430; 43235; 80048; 80053; 81003; 82607; 82728; 82746; 83540; 83550; 83735; 83880; 84100; 84443; 84484; 85025; 85610; 85730; 86850; 86900; 86920; 87086; 93005; 94664; 97110; 97161; 97166; C9113; J1940; J2270; J2405; J3480; J7030; P9016

== ENCOUNTER → 2022-03-23 10:14 | Outpatient (BNVA) | payer OTHER, MEDICARE, BC, SELFPAY | PROVIDERS: PCP Family Medicine; Visit Provider Physician Assistant | DX: Z47.89 Encounter for other orthopedic aftercare (principal); Z96.649 Presence of unspecified artificial hip joint | CPT/HCPCS: 73502; 99024 ==

== ENCOUNTER → 2022-04-20 10:40 | Outpatient (BNVA) | payer MEDICARE, BC, SELFPAY | PROVIDERS: PCP Family Medicine; Visit Provider Physician Assistant | DX: Z96.649 Presence of unspecified artificial hip joint (principal); Z47.89 Encounter for other orthopedic aftercare; Z98.890 Other specified postprocedural states; L03.116 Cellulitis of left lower limb | CPT/HCPCS: 73502; 99024 ==

== ENCOUNTER → 2022-04-27 10:24 | Outpatient (BNVA) | payer MEDICARE, BC, SELFPAY | PROVIDERS: PCP Family Medicine; Visit Provider Physician Assistant | DX: S91.302A Unspecified open wound, left foot, initial encounter (principal); X58.XXXA Exposure to other specified factors, initial encounter; Z96.649 Presence of unspecified artificial hip joint | CPT/HCPCS: 99024; 99213 ==

== ENCOUNTER 2022-09-30 07:38 | Emergency (ER) | payer MEDICARE, BC, SELFPAY ==
[2022-09-30 07:43] VITALS: BP 227/90; PULSE 111; RESP 16; TEMP 37.7; O2SAT 85; BMI 33.6
--- NOTE | 2022-09-30 08:00 | ED_ITS ---
HPI - Fall General: Chief Complaint: Fall Stated Complaint: Fall Time Seen by Provider: 09/30/22 07:42 Source: patient Mode of arrival: ambulatory History of Present Illness: 87-year-old female arrives from custodial. She evidently was found down unwitnessed fall. No obvious trauma she seems to complain of left hip pain is the only problem. There is no obvious deformity. Passive motion in the right hip knee and ankle did not elicit any pain no significant pain at the left knee or ankle but there is some mild discomfort at the hip. Patient has underlying cognitive deficits different difficulty get much more for convincing history out of her. complaint: fall Fall from: standing Fall witnessed: no Place fall occurred: custodial/SNF Loss of consciousness: Unsure Prolonged down time: unclear Location of injury - extremities: Left: thigh (Left hip) Severity: mild Associated symptoms-after fall: Reports confusion and difficulty walking; Denies abdominal pain, chest pain, headache(s), hematuria, lightheadedness, neck pain, numbness, short of breath, vertigo or weakness Review of Systems Const: Denies: fever(s), chills, body aches, change in appetite, fatigue or malaise ENMT: Denies: throat pain, ear or mastoid pain, nasal discharge or nasal congestion Card: Denies: chest pain or lightheadedness Resp: Denies: dyspnea, productive cough or non-productive cough GI: Denies: abdominal pain, nausea or vomiting : Denies: flank pain, dysuria, urinary frequency, urinary urgency or hematuria Musc: Reports: extremity pain; Denies: neck pain or back pain Skin/Breast: Denies: rash or pruritus Neuro: Reports: difficulty walking and confusion; Denies: headache(s) or vertigo PFS ED PFSH: Medical History Atrial fibrillation Closed fracture of left hip Depression Depression Depression with anxiety Displaced fracture of left femoral neck HTN (hypertension) Hypertension Insomnia Surgical History History of left hip replacement Family History Daughter Psychiatric illness Social History Smoking and tobacco status: never smoked Alcohol intake: never Household members: spouse and children Marital status: Number of children: 2 Physical Exam Const: GENERAL APPEARANCE: cooperative and comfortable ORIENTATION/CONSCIOUSNESS: Yes awake, Yes oriented to person, Yes oriented to place and Yes oriented to time HENMT: COMMON NORMALS: normocephalic, atraumatic and hearing grossly normal bilaterally HEAD & SCALP: normocephalic and atraumatic Resp: COMMON NORMALS: normal respiratory effort, No retractions, No use of accessory muscles and clear to auscultation bilaterally AUSCULTATION: clear to auscultation bilaterally Cardio: COMMON NORMALS: regular rate, regular rhythm and No murmurs present (Cardio) RATE: regular rate RHYTHM: regular rhythm GI: COMMON NORMALS: Soft to palpation and No hepatosplenomegaly present AUSCULTATION: Yes normoactive bowel sounds PALPATION: Yes Soft to palpation, No Tenderness to palpation present (GI), No Guarding due to palpation present (GI) and Yes No hepatosplenomegaly present Extremity: COMMON NORMALS: normal to inspection, capillary refill normal, no clubbing, cyanosis or edema, no calf tenderness and no pedal edema Neuro: SENSORIUM/ORIENTATION: Yes oriented to person, Yes oriented to place and Yes oriented to time Skin: COMMON NORMALS: no rashes or lesions noted GENERAL SKIN EXAM: no rashes or lesions noted Course Vital Signs: Vital signs: Vital Signs Temperature 99.9 F H 09/30/22 07:43 Pulse Rate 100 09/30/22 09:35 Respiratory Rate 16 09/30/22 09:35 Blood Pressure 197/119 09/30/22 09:35 Pulse Oximetry 94 09/30/22 09:35 Oxygen Delivery Me thod 09/30/22 08:36 MDM - Fall Medical Decision Making Left inferior pubic rami fracture secondary cystitis. Start hydrocodone and Macrobid for the cystitis. Patient has a walker at home also set up home health. White count elevated however only mild cystitis. Suspect white count shift secondary to the fall and fracture. Discussed with him if has any worsening or change symptoms return to the emergency room Medical Records I reviewed the patient's medical records. Lab Data I reviewed the patient's lab results. 09/30/22 08:32 09/30/22 08:32 Radiology Impressions Knee X-Ray 09/30/22 08:05 IMPRESSION: 1. Mild tricompartmental DJD and osteopenia. 2. No fracture or joint effusion. Hip/Pelvis X-Ray 09/30/22 08:19 IMPRESSION: 1. Intact left hip prosthesis without complication. 2. Nondisplaced recent appearing fracture of the inferior left pubic ramus. Laboratory Results WBC 17.5 10^3/uL (4.0-10.0) H 09/30/22 08:32 RBC 4.37 10^6/uL (4.1-5.3) 09/30/22 08:32 Hgb 13.9 g/dL (11.5-15.3) 09/30/22 08:32 Hct 43.7 % (37.0-47.0) 09/30/22 08:32 MCV 100.0 fl (81-99) H 09/30/22 08:32 MCH 31.8 pg (28.0-34.0) 09/30/22 08:32 MCHC 31.8 g/dL (30.0-36.0) 09/30/22 08:32 RDW 12.4 % (12.1-15.1) 09/30/22 08:32 Plt Count 219 10^3/cmm (130-400) 09/30/22 08:32 MPV 10.0 fL (7.4-10.4) 09/30/22 08:32 Neut % (Auto) 89.8 % 09/30/22 08:32 Lymph % (Auto) 3.0 % 09/30/22 08:32 [place] % (Auto) 6.4 % 09/30/22 08:32 Eos % (Auto) 0.0 % 09/30/22 08:32 Baso % (Auto) 0.2 % 09/30/22 08:32 Neut # (Auto) 15.72 10^3/uL (1.8-7.7) H 09/30/22 08:32 Lymph # (Auto) 0.5 10^3/uL (0.8-4.8) L 09/30/22 08:32 [place] # (Auto) 1.1 10^3/uL (0.2-0.9) H 09/30/22 08:32 Eos # (Auto) 0.0 10^3/uL (0.0-0.8) 09/30/22 08:32 Baso # (Auto) 0.0 10^3/uL (0.0-0.1) 09/30/22 08:32 Nucleated RBC % (auto) 0 % 09/30/22 08:32 Nucleated RBCs # 0.0 /100WBC 09/30/22 08:32 Sodium 141 mmol/L (136-145) 09/30/22 08:32 Potassium 3.5 mmol/L (3.5-5.1) 09/30/22 08:32 Chloride 102 mmol/L (98-107) 09/30/22 08:32 Carbon Dioxide 26 mmol/L (22-29) 09/30/22 08:32 Anion Gap 16.5 (5-19) 09/30/22 08:32 BUN 10 mg/dL (8-23) 09/30/22 08:32 Creatinine 0.7 mg/dL (0.5-0.9) 09/30/22 08:32 GFR Calculation Not Reportable 09/30/22 08:32 Glucose 154 mg/dL (65-115) H 09/30/22 08:32 Calculated Osmolality 294 mOsm/kg (285-295) 09/30/22 08:32 Calcium 9.6 mg/dL (8.5-10.5) 09/30/22 08:32 Urine Color Straw (Yellow) 09/30/22 08:27 Urine Appearance Clear (CLEAR) 09/30/22 08:27 Urine pH 5 (5-7) 09/30/22 08:27 Ur Specific [place] 1.020 (1.005-1.030) 09/30/22 08:27 Urine Protein Neg (Negative) 09/30/22 08:27 Urine Glucose (UA) Norm (Normal) 09/30/22 08:27 Urine Ketones 1+ (Negative) H 09/30/22 08:27 Urine Blood 2+ (Negative) H 09/30/22 08:27 Urine Nitrate Positive (Negative) H 09/30/22 08:27 Urine Bilirubin Neg (Negative) 09/30/22 08:27 Urine Urobilinogen Neg mg/dL (Negative) 09/30/22 08:27 Ur Leukocyte Esterase Negative (Negative) 09/30/22 08:27 Urine RBC 5-10 /hpf (0-2) H 09/30/22 08:27 Urine WBC None /hpf (0-5) 09/30/22 08:27 Ur Squamous Epith Cells 0-4 /hpf (0-5) H 09/30/22 08:27 Amorphous Sediment Not Reportable 09/30/22 08:27 Urine Bacteria 4+ /hpf (NONE) H 09/30/22 08:27 Discharge Plan Discharge Patient Disposition: Home Clinical Impression: Closed fracture of pubic ramus, Fall, Cystitis Condition: Stable Prescriptions: New hydrocodone-acetaminophen 5-325 mg tablet 1 tab PO Q6H PRN (Reason: pain) Qty: 20 0RF Macrobid 100 mg capsule 100 mg PO BID 7 Days Qty: 14 0RF Rx Instructions: must administer with a meal/food Discontinued hydrocodone-acetaminophen 5-325 mg Tablet 1 tab PO Q4H PRN (Reason: Breakthrough Pain) Qty: 15 0RF No Action citalopram 10 mg tablet 10 mg PO DAILY trazodone 100 mg tablet 200 mg PO BEDTIME aripiprazole 2 mg tablet 2 mg PO BEDTIME atorvastatin 40 mg Tablet 40 mg PO BEDTIME Qty: 60 3RF clopidogrel 75 mg Tablet 75 mg PO DAILY Qty: 20 0RF lisinopril 20 mg tablet 20 mg PO DAILY Aspir-81 81 mg Tablet,Delayed Release (Dr/Ec) 81 mg PO BEDTIME atenolol 50 mg tablet 50 mg PO DAILY Discharge Orders: Discharge ED (Routine); Ordered 09/30/22 Ordered By: Thomas Dubose Referrals: Genaro Munoz [Primary Care Provider] - Discharge Diet: Usual diet Discharge Activity: Increase activity as tolerated Patient Instructions: Opioid Safety, Pain Management Activity Restrictions/Additional Instructions: You were seen today for a fall. On imaging there is a left inferior pubic rami fracture. There is no treatment for these other than pain management. Pain medications were prescribed recommend to use a walker when ambulating. Case management will set up home health referral. Additionally you had a mild cystitis which she was started on antibiotic for. Coding Level of Care Code ED Photography Colorist for Chg Fwd Exam Detailed
--- NOTE | 2022-09-30 08:05 | XR_ITS ---
WS: [id number] Exam: XR knee LT 3V* [id number] Date/Time of Exam: 09/30/2022 8:26 AM Reason For Exam: pain No acute fracture or dislocation. Mild tricompartmental DJD. Osteopenia. No significant joint effusio n. Unremarkable soft tissues. XR/XR knee LT 3V* [id number] IMPRESSION: 1. Mild tricompartmental DJD and osteopenia. 2. No fracture or joint effusion.
--- NOTE | 2022-09-30 08:19 | XR_ITS ---
WS: [id number] Exam: XR hip LT 2-3V wo/w pel* [id number] Date/Time of Exam: 09/30/2022 8:26 AM Reason For Exam: pain Comparison 04/20/2022. A left hip prosthesis is in place in satisfactory position without fracture or loosening. A recent ap pearing nondisplaced fracture of the inferior pubic ramus is noted. The remaining visualized left pel vis is intact. XR/XR hip LT 2-3V wo/w pel* [id number] IMPRESSION: 1. Intact left hip prosthesis without complication. 2. Nondisplaced recent appearing fracture of the inferior left pubic ramus.
--- NOTE | 2022-09-30 08:35 | PC.PHAR ---
PTS VERIFIED PTS MEDICATIONS-PTS STATES HE IS UNSURE IF THE PT TAKES CITALOPRAM 10MG DAILY EXT MED HISTORY SHOWS LAST FILLED 08/24/22 90D/S-PTS STATES THE PT IS STILL TAKING ARIPIPRAZOLE 2MG HS EXT MED HISTORY SHOWS LAST FILLED 05/27/22 90D/S-NOTES ARE MADE IN THE PHARMACY COMMENTS
[2022-09-30 08:36] VITALS: BP 193/103; PULSE 102; RESP 18; O2SAT 92
[2022-09-30 08:36] LABS: Add Urine Microscopic? YES; Bilirubin Urine Neg (Negative); Blood Urine 2+ (Negative); Glucose Urine UA Norm (Normal); Ketones Urine 1+ (Negative); Leukocyte Esterase Urine Negative (Negative); Nitrate Urine Positive (Negative); Protein Urine Neg (Negative); Urine Appearance Clear (CLEAR); Urine Color Straw (Yellow); Urobilinogen Urine Neg (Negative); pH Urine 5 (5-7)
[2022-09-30 08:47] LABS: Basophils % 0.2 %; Hematocrit 43.7 % (37.0-47.0); Hemoglobin 13.9 g/dL (11.5-15.3); Lymphocytes # 0.5 10^3/uL (0.8-4.8); Mean Corpuscular HGB Conc 31.8 g/dL (30.0-36.0); Mean Corpuscular Hemoglobin 31.8 pg (28.0-34.0); Monocytes # 1.1 10^3/uL (0.2-0.9); Monocytes % 6.4 %; Neutrophils # 15.72 10^3/uL (1.8-7.7); Neutrophils % 89.8 %; Nucleated Red Blood Cells % 0 %; Platelet Count 219 10^3/cmm (130-400); Red Blood Count 4.37 10^6/uL (4.1-5.3); Red Cell Distribution Width 12.4 % (12.1-15.1); White Blood Count 17.5 10^3/uL (4.0-10.0)
[2022-09-30 08:50] LABS: Add Urine Culture? Yes; Bacteria Urine 4+ /hpf; Squamous Epithelial Cell Urine 0-4 /hpf (0-5)
[2022-09-30 09:03] LABS: Anion Gap 16.5 (5-19); Blood Urea Nitrogen 10 mg/dL (8-23); Calcium 9.6 mg/dL (8.5-10.5); Carbon Dioxide 26 mmol/L (22-29); Chloride 102 mmol/L (98-107); Glucose 154 mg/dL (65-115); Osmolality Calculated 294 mOsm/kg (285-295); Potassium 3.5 mmol/L (3.5-5.1); Sodium 141 mmol/L (136-145)
[2022-09-30 09:35] VITALS: BP 197/119; PULSE 100; RESP 16; O2SAT 94
--- NOTE | 2022-09-30 10:04 | DCPLANNER ---
corporate relations manager had message to speak with patient about setting up home health services in the home. corporate relations manager spoke with patients , he stated that he would like to use [facility] Home health. corporate relations manager had referring physician put a order in for home health, case monitor called and spoke with Trav at [facility]. corporate relations manager was told that home health would call and speak with patient or family.
== END 2022-09-30 10:05 | disposition home or self-care (01) ==
PROVIDERS: Emergency Provider Family Medicine; PCP Family Medicine
DX: S32.592A Other specified fracture of left pubis, initial encounter for closed fracture (principal); N30.90 Cystitis, unspecified without hematuria; Z79.82 Long term (current) use of aspirin; Z79.02 Long term (current) use of antithrombotics/antiplatelets; Z96.642 Presence of left artificial hip joint; I10 Essential (primary) hypertension; W19.XXXA Unspecified fall, initial encounter; Y92.129 Unspecified place in nursing home as the place of occurrence of the external cause
CPT/HCPCS: 73502; 73562; 80048; 81001; 85025; 87077; 87086; 87186; 99284